=== PATIENT | female | born 2000 | race Caucasian/White ===

== ENCOUNTER 2021-04-30 20:58 | Emergency (ER) | payer OTHER, SELFPAY ==
--- NOTE | ~2021-04-30 | XR_ITS ---
EXAMINATION: XR elbow LT min 3V DATE: 04/30/2021 21:59 INDICATION: Elbow pain TECHNIQUE: Anteroposterior, two oblique and lateral views of the left elbow were obtained. COMPARISON: None. FINDINGS: Alignment is normal. No fracture or joint effusion. Joint spaces are normal. Soft tissues are unremarkable. IMPRESSION: 1. No acute osseous abnormality. Reviewed, dictated and finalized at location A. [employer]
--- NOTE | ~2021-04-30 | XR_ITS ---
EXAMINATION: XR shoulder LT min 2V INDICATION: Left shoulder pain TECHNIQUE: Four views of the left shoulder are submitted. COMPARISON: None FINDINGS: Normal alignment. No fracture. Glenohumeral and acromioclavicular joint spaces are normal. Soft tissues are unremarkable. IMPRESSION: 1. No acute osseous abnormality. Reviewed, dictated and finalized at location A. [employer]
--- NOTE | ~2021-04-30 | XR_ITS ---
EXAMINATION:XR_CERV2-3V_CR DATE: 04/30/2021 21:59 INDICATION: Neck pain TECHNIQUE: AP, lateral, lateral swimmers and odontoid views of the cervical spine are provided. COMPARISON: None FINDINGS: Alignment is normal. The odontoid is intact. No fracture is identified. Vertebral body heig hts and disk spaces are normal. Prevertebral soft tissues are normal. IMPRESSION: 1. No acute osseous abnormality. Reviewed, dictated and finalized at location A. [employer]
[2021-04-30 21:02] VITALS: BP 132/66; PULSE 77; RESP 16; TEMP 36.3; O2SAT 100
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
[2021-05-01 00:09] VITALS: PULSE 72; RESP 16; O2SAT 94
== END 2021-05-01 00:10 | disposition home or self-care (01) ==
PROVIDERS: Emergency Provider Emergency Medicine; PCP Family Medicine
DX: S46.912A Strain of unspecified muscle, fascia and tendon at shoulder and upper arm level, left arm, initial encounter (principal); S16.1XXA Strain of muscle, fascia and tendon at neck level, initial encounter; V43.52XA Car driver injured in collision with other type car in traffic accident, initial encounter
CPT/HCPCS: 72040; 73030; 73080; 99284

== ENCOUNTER 2021-11-08 17:41 | Emergency (ER) | payer SELFPAY ==
[2021-11-08 17:51] VITALS: BP 122/64; PULSE 67; RESP 20; TEMP 36.3; O2SAT 100
--- NOTE | 2021-11-08 18:14 | ED.FEMALEGU ---
HPI - Female Genitourinary General Chief complaint: Upper Respiratory Infection Stated complaint: Yeast Infection Time Seen by Provider: 11/08/21 18:15 Source: patient and RN notes reviewed Mode of arrival: ambulatory Limitations: no limitations History of Present Illness HPI Narrative: 20-year-old female presents to the [facility] with complaints of vaginal discharge, concern for burning and itching. Has a concern for an STD. Denies chances of . Patient denies abdominal pain, fevers. Related Data Allergies Allergy/AdvReac Type Severity Reaction Status Date / Time No Known Allergies Allergy Unverified 03/25/12 11:08 Review of Systems Review of Systems: All systems reviewed & are unremarkable except as noted in HPI and below Constitutional: Constitutional: Reports no additional constitutional complaints, Denies chills and Denies fever(s) Eyes: Eyes: Reports no additional eye complaints ENT: Reports system reviewed and no additional complaints, except as documented Cardiovascular: Cardiovascular: Reports no additional cardiovascular complaints Respiratory: Respiratory: Reports no additional respiratory complaints Gastrointestinal: Gastrointestinal: Reports no additional gastrointestinal complaints Genitourinary: Genitourinary: Reports as per HPI and Reports vaginal discharge Musculoskeletal: Musculoskeletal: Reports no additional musculoskeletal complaints Integumentary/Breasts: Skin/Breast: Reports system reviewed and no additional complaints, except as docu Neurologic: Reports system reviewed and no additional complaints, except as documented Psychiatric: Psychiatric: Reports no additional psychiatric complaints Allergic/Immunologic: Allergic/Immunologic: Reports no additional allergic/immunologic complaints PMFSH Past Medical History Medical History (Updated 11/08/21 @ 20:07 by Sarah Khan APRN) No significant medical problems Surgical History Surgical History (Updated 11/08/21 @ 20:07 by Sarah Khan APRN) No pertinent past surgical history Social History Social History (Updated 11/08/21 @ 20:08 by Sarah Khan APRN) Gender identity (if verbalized by the patient): Female Comments At the time of my signature, I reviewed and agree with the nursing past medical, surgical, social, and family history. There is no relevant family history pertinent to the patient complaint. Exam Const: General: healthy appearing, no acute distress and alert Nutritional Appearance: well nourished Orientation/consciousness: patient oriented x3 Limitations: no limitations HENMT: Head: normal to inspection Ears: external ears normal General nose exam: Normal external nose present Eyes: General: appearance normal, both eyes and all related structures Pupils: Equal, round and reactive pupils present Neck: Neck: normal visual inspection, no lymphadenopathy and no meningeal signs Chest: Chest palpation & inspection: normal inspection of the chest Resp: Effort & Inspection: normal respiratory effort and no use of accessory muscles Auscultation: clear to auscultation bilaterally, no crackles, no rales, no rhonchi and no wheezes Cardio: Rate: regular rate Rhythm: regular rhythm GI: GI Palp: Yes Soft to palpation and No Tenderness to palpation present (GI) : External Female Exam: normal external appearance Speculum Exam - Vagina: abnormal vaginal discharge (Patient is on menses) white Speculum Exam - Cervix: normal appearance of the cervix and Cervical os closed Other: Chaperoned by [address] WAY Back/Spine/Pelvis: Cervical Spine: normal cervical lordosis Thoracic/Lumbar Spine: thoracic and lumbar spine normal to inspection Skin: General skin exam: normal color Rashes: no rashes Wounds: no wounds Neuro: General: patient oriented x3, moves all extremities, no meningeal signs and no focal motor deficits Cranial nerves: Yes Equal, round and reactive pupils present Speech: normal speech Ga
== END 2021-11-08 18:49 | disposition home or self-care (01) ==
PROVIDERS: Emergency Provider Nurse Practitioner; PCP Family Medicine
DX: N76.0 Acute vaginitis (principal)
CPT/HCPCS: 81003; 81025; 87070; 87077; 87491; 87591; 87661; 99214; G0463

== ENCOUNTER 2023-07-04 16:18 | Emergency (ER) | payer SELFPAY ==
[2023-07-04 16:25] VITALS: BP 130/76; PULSE 71; RESP 18; TEMP 36.3; O2SAT 100
--- NOTE | 2023-07-04 20:24 | PC.NURSE ---
no answer at triage
--- NOTE | 2023-07-04 20:27 | PC.NURSE ---
no answer at triage
== END 2023-07-04 20:56 | disposition left against medical advice (07) ==
PROVIDERS: PCP Family Medicine
DX: R10.9 Unspecified abdominal pain (principal)
CPT/HCPCS: 99199

== ENCOUNTER 2023-07-21 16:25 | Emergency (ER) | payer SELFPAY ==
[2023-07-21 16:45] VITALS: BP 116/53; PULSE 85; RESP 18; O2SAT 100
--- NOTE | 2023-07-21 17:00 | ED.GENADULT ---
HPI - General Adult General Chief complaint: Urogenital-Female Stated complaint: urinary issue Source: patient, RN notes reviewed and old records reviewed Mode of arrival: ambulatory Limitations: no limitations History of Present Illness HPI narrative: 22-year-old female presents to [facility] with complaints of burning with urination, urgency, frequency, and lower abdominal pain. Patient states he did a telehealth visit and was prescribed a medication to treat bacterial vaginosis the patient states did not help. Patient states does have a new partner and would like STD testing. Patient denies vaginal discharge, vaginal irritation, vaginal pain, vaginal lesions. Related Data Allergies Allergy/AdvReac Type Severity Reaction Status Date / Time No Known Allergies Allergy Verified 07/21/23 16:26 Review of Systems Constitutional: Constitutional: Reports no additional constitutional complaints, Denies body ache(s), Denies chills, Denies fatigue, Denies fever(s) and Denies headache(s) Eyes: Eyes: Reports no additional eye complaints and Denies blurry vision ENT: Reports system reviewed and no additional complaints, except as documented, Denies vertigo, Denies dizziness, Denies ear discharge, Denies otalgia, Denies facial pain, Denies headache(s), Denies nasal congestion, Denies nasal discharge, Denies sinus pain, Denies sinus pressure and Denies sore throat Cardiovascular: Cardiovascular: Reports no additional cardiovascular complaints, Denies chest pain, Denies chest pain at rest, Denies rapid heart rate and Denies dyspnea Respiratory: Respiratory: Reports no additional respiratory complaints, Denies chest congestion, Denies cough, Denies pain on inspiration, Denies pain with cough and Denies dyspnea Gastrointestinal: Gastrointestinal: Reports abdominal pain, Denies diarrhea, Denies nausea and Denies vomiting Genitourinary: Genitourinary: Reports nocturia, Reports dysuria and Reports urinary urgency Integumentary/Breasts: Skin/Breast: Denies rash Neurologic: Reports system reviewed and no additional complaints, except as documented, Denies vertigo, Denies dizziness and Denies headache(s) Endocrine: Endocrine: Denies fatigue PMFSH Past Medical History Medical History No significant medical problems Surgical History Surgical History No pertinent past surgical history Social History Social History Gender identity (if verbalized by the patient): Female Comments At the time of my signature, I reviewed and agree with the nursing past medical, surgical, social, and family history. There is no relevant family history pertinent to the patient complaint. Exam Const: General: cooperative, healthy appearing, no acute distress and well nourished Nutritional Appearance: well nourished Orientation/consciousness: patient oriented x3 Limitations: no limitations HENMT: Head: normal to inspection and normocephalic Ears: external ears normal and mastoids normal Face/Nose/Sinus: normal facial exam Face and sinus: normal facial exam Mouth: Yes Normal oral and palatal mucosa present, Yes oropharynx normal and Yes moist mucous membranes Eyes: General: appearance normal, both eyes and all related structures Sclera: sclerae normal Pupils: Equal, round and reactive pupils present Resp: Effort & Inspection: normal respiratory effort, able to speak in complete sentences, no audible wheezes, no cough, no respiratory distress and no retractions GI: GI Palp: No abdominal tenderness, Yes Soft to palpation, No Firmness to palpation present (GI), No Tenderness to palpation present (GI), No Guarding due to palpation present (GI) and No Rigid due to palpation : General: Yes bladder normal to inspection, Yes bladder normal to palpation and Yes no CVA tenderness Skin: General sk
[2023-07-21 19:21] LABS: Trichomonas Vag PCR NOT DETECTED (NOT DETECTE)
[2023-07-21 19:47] LABS: Chlamydia trachomatis DETECTED (NOT DETECTE); Neisseria gonorrhoeae PCR NOT DETECTED (NOT DETECTE)
== END 2023-07-21 17:11 | disposition home or self-care (01) ==
PROVIDERS: Emergency Provider Registered Nurse; PCP Family Medicine
DX: N30.00 Acute cystitis without hematuria (principal); A74.9 Chlamydial infection, unspecified
CPT/HCPCS: 81003; 87086; 87491; 87591; 87661; 99213; G0463

== ENCOUNTER 2024-03-12 15:12 | Emergency (ER) | payer SELFPAY ==
--- NOTE | ~2024-03-12 | US_ITS ---
EXAMINATION: US OB <=14 wk fetus w TV DATE: 03/12/2024 18:44 INDICATION: Pelvic pain. Positive test. TECHNIQUE: Real-time pelvic ultrasound utilizing both a transvaginal and transabdominal probe was pe rformed. The interpreting radiologist was not present for the study. COMPARISON: None. FINDINGS: The uterus measures 7.9 x 4.2 x 5.8 cm. There is an intrauterine gestational sac. A yolk sac and fet al pole are identified. The mean sac diameter measures 15 mm correlates with an estimated gestational age of 6 weeks and 2 days. The crown rump length measures 1-2 mm which is below the lower range for assessment for gestational age and 2 small visualized heart motion. The right ovary measures 2.7 x 1.7 x 1.8 cm. The left ovary measures 2.0 x 1.5 x 1.5 cm. Vascular konstantin w is identified in both ovaries on color Doppler. There is a minimal amount of free fluid in the pelv is. IMPRESSION: 1. Intrauterine gestational sac with single yolk sac and one-2 mm pole which is too small to ge stational age assessment for to assess for heart motion. 2. Gestational age by ultrasound based upon a 15 mm mean sac diameter of 6 weeks 2 day(s) +/- 4 day( s) with ultrasound estimated date of delivery (DALIA) of 10/24/2024. Could consider short interval follow -up ultrasound as clinically indicated to confirm viability and for more accurate assessment fo r estimated gestational age. Reviewed, dictated and finalized at location A. IMPRESSION: 1. Intrauterine gestational sac with single yolk sac and one-2 mm pole wh ich is too small to gestational age assessment for to assess for heart mo tion. 2. Gestational age by ultrasound based upon a 15 mm mean sac diameter of 6 wee ks 2 day(s) +/- 4 day(s) with ultrasound estimated date of delivery (DALIA) of 10/24/2024. Could consider short interval follow-up ultrasound as clinically indica esa to confirm viability and for more accurate assessment for estimated g estational age.
[2024-03-12 15:13] VITALS: BP 134/67; PULSE 67; RESP 18; TEMP 36.5; O2SAT 100
[2024-03-12 16:33] VITALS: BP 111/64; PULSE 78; RESP 15; TEMP 36.8; O2SAT 99
--- NOTE | 2024-03-12 16:52 | ED.ABDPAIN ---
HPI - Abdominal Pain General Chief Complaint: Abdominal Pain Stated Complaint: 5 weeks abd pain Time Seen by Provider: 03/12/24 16:28 Source: patient Mode of arrival: ambulatory Limitations: no limitations History of Present Illness HPI narrative: This is a 23-year-old , about 5 weeks by LMP. Presents to the emergency department for lower abdominal pain. Dull/ achy in nature. Ongoing over the last week. She has not seen her OB or had an ultrasound yet this . She has also had some nausea and vomiting. Denies dysuria, hematuria, or vaginal bleeding. Related Data Allergies Allergy/AdvReac Type Severity Reaction Status Date / Time No Known Allergies Allergy Verified 07/21/23 16:26 Review of Systems Review of Systems: CONSTITUTIONAL: Denies fever GASTROINTESTINAL: Reports abdominal pain, nausea, vomiting GENITOURINARY: Denies dysuria or hematuria. All systems reviewed & are unremarkable except as noted in HPI and below PMFSH Past Medical History Medical History No significant medical problems Surgical History Surgical History No pertinent past surgical history Social History Social History (Updated 03/12/24 @ 16:58 by Gaby Metzger PA-C) Substance use: never Gender identity (if verbalized by the patient): Female Exam Narrative: GENERAL: Well-appearing, well-nourished, and in no acute distress. HEAD: Normocephalic, atraumatic. EYES: EOMI. CHEST: Clear to auscultation. No respiratory distress. No wheezes rales or rhonchi HEART: Regular rate and rhythm. No murmur heard. Normal peripheral pulses. ABDOMEN: Soft, nontender, nondistended, normal active bowel sounds. EXTREMITIES: Normal range of motion. No edema. SKIN: Warm, dry, no rash. NEURO: No focal deficits. Alert and oriented x3. PSYCH: Normal mood and affect Course Course Emergency Course: Patient updated on her workup and agrees with plan of care Vital Signs Vital signs: Vital Signs Temperature 97.7 F 03/12/24 15:13 Pulse Rate 67 03/12/24 15:13 Respiratory Rate 18 03/12/24 15:13 Blood Pressure 134/67 03/12/24 15:13 Pulse Oximetry 100 03/12/24 15:13 Oxygen Delivery Room Air 03/12/24 15:13 Temperature 98.1 F 03/12/24 18:23 Pulse Rate 70 03/12/24 18:23 Respiratory Rate 14 03/12/24 18:23 Blood Pressure 118/70 03/12/24 18:23 Pulse Oximetry 98 03/12/24 18:23 Oxygen Delivery Room Air 03/12/24 16:33 MDM - Abdominal Pain MDM Narrative Medical decision making narrative: Patient presents to the emergency department for lower abdominal pain. Ongoing over the last week. Reports currently being . Her OB will be [facility] [place]. she is afebrile and nontoxic appearing. Her vitals are stable. Abdomen is soft. Cbc without leukocytosis. Metabolic panel and lipase without concerning findings. Urine without evidence of infection. Beta-hCG 21, 274. ultrasound shows a gestational sac and yolk sac with a 2 mm pole, unable to visualize cardiac motion. Gestational age by ultrasound 6 weeks and 2 days. Patient was updated on her workup. Is to have close follow-up with her OB. She was given warnings to return to the ER Differential Diagnosis Differential diagnosis: Likely constipation and other (UTI, implantation pain) Lab Data Attestation: I reviewed the patient's lab results. 03/12/24 16:48 03/12/24 16:48 Labs: Lab Results 03/12/24 03/12/24 Range/Units 16:48 16:52 WBC 8.8 (4.5-10.0) K/mm3 RBC 4.65 (4.2-5.4) M/mm3 Hgb 13.7 (12.0-15.0) g/dL Hct 40.5 (37.0-47.0) % MCV 87.1 (80-100) fl MCH 29.5 (26-34) pg MCHC 33.8 (32-36) g/dl RDW 12.0 (11.5-14.5) % Plt Count 306 (150-375) k/mm3 MPV 9.9 (7.4-10.4) fl Immature Gran % (Auto) 0.2 (0-0.5) % Neut % (Auto) 65.
[2024-03-12 16:53] LABS: BEDSIDEPREGUCG Positive (Negative)
[2024-03-12 17:00] LABS: Basophils Percent Auto 0.3 % (0.2-1.2); Eosinophils Absolute Auto 0.2 K/mm3 (0-0.3); Eosinophils Percent Auto 2.4 % (0-4.4); Hematocrit 40.5 % (37.0-47.0); Hemoglobin 13.7 g/dL (12.0-15.0); Immature Granulocyte Absolute 0.02 K/mm3 (0.00-0.031); Immature Granulocyte Percent A 0.2 % (0-0.5); Lymphocytes Absolute Auto 2.28 K/mm3 (0.9-3.2); Lymphocytes Percent Auto 25.9 % (18.3-44.2); Mean Corpuscular HGB Conc 33.8 g/dl (32-36); Mean Corpuscular Hemoglobin 29.5 pg (26-34); Mean Corpuscular Volume 87.1 fl (80-100); Mean Platelet Volume 9.9 fl (7.4-10.4); Monocytes Absolute Auto 0.5 K/mm3 (0.1-0.6); Monocytes Percent Auto 5.5 % (2.6-8.5); Neutrophils Absolute Auto 5.8 K/mm3 (1.3-6.7); Neutrophils Percent Auto 65.7 % (45.5-73.1); Platelet Count Result 306 k/mm3 (150-375); Red Blood Count 4.65 M/mm3 (4.2-5.4); White Blood Count 8.8 K/mm3 (4.5-10.0)
[2024-03-12 17:16] LABS: Add Urine Microscopic? YES; Appearance Urine Clear (Clear); Bacteria Urine None Seen /hpf; Bilirubin Urine Negative (Negative); Blood Urine Negative (Negative); Color Urine Yellow (Yellow); Glucose Urine UA Negative (Negative); Ketones Urine Negative (Negative); Leukocyte Esterase Ur Trace LEU/UL (Negative); Nitrate Urine Negative (Negative); Non Pathogenic Casts 0-2; Protein Urine Negative (Negative); RBC Urine 0-2 /hpf (0-2); Specific Grav Ur 1.011 (1.001-1.035); Squamous Epithelial Cell Urine None Seen /hpf (Few); Urobilinogen Urine 0.2 mg/dL (<2.0); WBC Urine 0-5 /hpf (0-3)
[2024-03-12] MEDS: SODIUM CHLORIDE 0.9% IV 1,000 ML 999 ML IV CONT (17:18)
[2024-03-12] MEDS: ONDANSETRON INJ 4 MG/2 ML VIAL IV PUSH (17:18)
[2024-03-12] MEDS: ACETAMINOPHEN 500 MG TABLET 1000 MG PO (17:19)
[2024-03-12 17:29] LABS: Alanine Aminotransferase 14 U/L (6-35); Albumin Level 4.8 g/dL (3.5-5.1); Alkaline Phosphatase 55 U/L (38-126); Anion Gap 10 mmol/L (4-12); Aspartate Amino Transferase 20 U/L (14-36); Bilirubin,Total 0.2 mg/dL (0.2-1.3); Blood Urea Nitrogen 9 mg/dL (7-17); Calcium 9.5 mg/dL (8.4-10.2); Carbon Dioxide 25 mmol/L (22-30); Chloride 100 mmol/L (98-107); Estimated CRCL calculation 117 ml/min; Estimated Glomerular Filt Rate > 60; Glucose 85 mg/dL (65-110); Lipase 104 U/L (23-300); Potassium 3.7 mmol/L (3.4-5.0); Sodium 135 mmol/L (137-145)
[2024-03-12 18:23] VITALS: BP 118/70; PULSE 70; RESP 14; TEMP 36.7; O2SAT 98
[2024-03-12 19:08] VITALS: BP 120/74; PULSE 68; RESP 14; TEMP 36.9; O2SAT 99
== END 2024-03-12 19:13 | disposition home or self-care (01) ==
PROVIDERS: Emergency Provider Physician Assistant
DX: O26.891 Other specified pregnancy related conditions, first trimester (principal); R10.30 Lower abdominal pain, unspecified; Z3A.01 Less than 8 weeks gestation of pregnancy
CPT/HCPCS: 36415; 76801; 76817; 80053; 81001; 81025; 83690; 84702; 85025; 96361; 96374; 99284; A9270; J2405; J7030

== ENCOUNTER 2024-05-06 17:29 | Emergency (ER) | payer SELFPAY ==
--- NOTE | ~2024-05-06 | XR_ITS ---
EXAMINATION: XR chest 1V DATE: 05/06/2024 20:04 INDICATION: Pneumonia. TECHNIQUE: A single frontal view of the chest was obtained. COMPARISON: None. FINDINGS: There is no pneumonia, pleural effusion, or pneumothorax. The heart size is normal. IMPRESSION: 1. No acute cardiopulmonary disease. Reviewed, dictated and finalized at location A. [employer]
[2024-05-06 17:51] VITALS: BP 121/61; PULSE 79; RESP 18; TEMP 36.5; O2SAT 99
[2024-05-06 20:51] LABS: Strep Group A RT-PCR NOT DETECTED (Negative)
[2024-05-06 21:03] LABS: Influenza A QL RT-PCR Negative (Negative); Influenza B QL RT-PCR Negative (Negative); RSV RNA, RT-PCR Negative (Negative); SARS-CoV-2 RNA PCR Negative (Negative)
--- NOTE | 2024-05-06 21:35 | ED.GENADULT ---
HPI - General Adult General Chief complaint: Upper Respiratory Infection Stated complaint: URI concerned for pneumonia, 13w preg Time Seen by Provider: 05/06/24 19:40 History of Present Illness HPI narrative: This is a at 13 weeks gestation presenting with cough x3 weeks. Patient has been having flu-like symptoms on and off for the last couple weeks. She finally came to ED because she was concerned she was not getting better. Symptoms include cough congestion and intermittent headaches. She has not had any fevers, chest pain difficulty breathing abdominal pain nausea vomiting diarrhea. No dog boarder complaints. Patient has had an abdominal ultrasound with her OBGYN. Related Data Allergies Allergy/AdvReac Type Severity Reaction Status Date / Time No Known Allergies Allergy Verified 05/06/24 17:32 [facility] Past Medical History Medical History No significant medical problems Surgical History Surgical History No pertinent past surgical history Social History Social History (Updated 03/12/24 @ 16:58 by Gaby Metzger PA-C) Substance use: never Gender identity (if verbalized by the patient): Female Exam Narrative: APPEARANCE: No apparent distress. Head: atraumatic. Normal TMs, mild erythema posterior oropharynx EYES: EOMI, NOSE: Atraumatic NECK: Trachea midline RESPIRATORY: No increased rate of breathing clear to auscultation CARDIOVASCULAR: RRR, ABDOMINAL: Non-distended soft nontender MUSCULOSKELETAl: No obvious deformities NEURO: Alert. Moving 4/4 extremities SKIN:: Warm, dry. Normal color PSYCHIATRIC: Normal affect Course Vital Signs Vital signs: Vital Signs Temperature 97.7 F 05/06/24 17:51 Pulse Rate 79 05/06/24 17:51 Respiratory Rate 18 05/06/24 17:51 Blood Pressure 121/61 05/06/24 17:51 Pulse Oximetry 99 05/06/24 17:51 Temperature 97.9 F 05/06/24 22:19 Pulse Rate 76 05/06/24 22:19 Respiratory Rate 15 05/06/24 22:19 Blood Pressure 132/68 05/06/24 22:19 Pulse Oximetry 98 05/06/24 22:19 Medical Decision Making MDM Narrative Medical decision making narrative: -Course: 23-year-old female presenting with 3 weeks of intermittent cough. Viral swabs were negative. Strep was negative. X-ray without evidence of pneumonia. vital signs are stable and she is very well-appearing on exam. She has no OBGYN complaints like abdominal pain vaginal bleeding/discharge. She will be treated with course of azithromycin to see if that improves her symptoms. Patient given follow-up with her OBGYN -DDX includes but is not limited to: Viral syndrome, atypical pneumonia, mycoplasma -Co-morbidities complicating care: -Shared decision making / Disposition: discharge -RX azithromycin Vital Signs Vital Signs: Vital Signs Temperature 97.7 F 05/06/24 17:51 Pulse Rate 79 05/06/24 17:51 Respiratory Rate 18 05/06/24 17:51 Blood Pressure 121/61 05/06/24 17:51 Pulse Oximetry 99 05/06/24 17:51 Temperature 97.9 F 05/06/24 22:19 Pulse Rate 76 05/06/24 22:19 Respiratory Rate 15 05/06/24 22:19 Blood Pressure 132/68 05/06/24 22:19 Pulse Oximetry 98 05/06/24 22:19 Lab Data Labs: Lab Results 05/06/24 Range/Units 19:43 Influenza A (RT-PCR) Negative (Negative) Influenza B (RT-PCR) Negative (Negative) RSV (RT-PCR) Negative (Negative) SARS-CoV-2 RNA (RT-PCR) Negative (Negative) Group A Strep (PCR) Not detected (Negative) Discharge Plan Discharge Clinical Impression: Upper respiratory infection Patient Disposition: Home, Self-Care Condition: Stable Instructions: Antibiotic Form, Acute Bronchitis (ED) Additional Instructions: please take the azithromycin as directed. Please follow-up with your OBGYN or pcp for further management. If you feel that your condition is getting worse, develop chest pain shortness of breath would like re-evaluation please return to the ED at any time. Patient Language: Ivorian Prescriptions: New azithromycin 250 mg tablet See Rx Instructions .ROUTE .COMPLEX Qty: 6 0RF Rx Instructions: For 250 mg dose pack: take 500 mg today (day 1), then 250 mg for 4 days (days 2-5) No Action nitrofurantoin monohyd/m-cryst [Macrobid] 100 mg capsule 100 mg PO Q12H 5 Days Qty: 10 0RF Rx Instructions: must administer with a meal/food doxycycline hyclate 100 mg tablet 100 mg PO BID 7 Days Qty: 14 0RF Follow-up/Referrals: UNKNOWN,DOCTOR [Primary Care Provider] -
[2024-05-06 22:19] VITALS: BP 132/68; PULSE 76; RESP 15; TEMP 36.6; O2SAT 98
== END 2024-05-06 22:40 | disposition home or self-care (01) ==
PROVIDERS: Emergency Provider Emergency Medicine
DX: J06.9 Acute upper respiratory infection, unspecified (principal); O99.511 Diseases of the respiratory system complicating pregnancy, first trimester; Z20.822 Contact with and (suspected) exposure to COVID-19; Z3A.13 13 weeks gestation of pregnancy
CPT/HCPCS: 71045; 87637; 87651; 99283

== ENCOUNTER 2024-07-30 15:14 | Emergency (ER) | payer OTHER, SELFPAY ==
[2024-07-30 15:21] VITALS: BP 130/83; PULSE 98; RESP 16; TEMP 36.6; O2SAT 100
[2024-07-30] MEDS: SODIUM CHLORIDE 0.9% IV 1,000 ML 999 ML IV CONT (15:58)
[2024-07-30] MEDS: ONDANSETRON INJ 4 MG/2 ML VIAL IV PUSH (15:58)
[2024-07-30 16:09] LABS: Basophils Percent Auto 0.3 % (0.2-1.2); Eosinophils Absolute Auto 0.2 K/mm3 (0-0.3); Eosinophils Percent Auto 2.2 % (0-4.4); Hematocrit 37.5 % (37.0-47.0); Hemoglobin 12.2 g/dL (12.0-15.0); Immature Granulocyte Absolute 0.05 K/mm3 (0.00-0.031); Immature Granulocyte Percent A 0.7 % (0-0.5); Lymphocytes Absolute Auto 0.83 K/mm3 (0.9-3.2); Lymphocytes Percent Auto 12.2 % (18.3-44.2); Mean Corpuscular HGB Conc 32.5 g/dl (32-36); Mean Corpuscular Hemoglobin 28.7 pg (26-34); Mean Corpuscular Volume 88.2 fl (80-100); Mean Platelet Volume 10.2 fl (7.4-10.4); Monocytes Absolute Auto 0.5 K/mm3 (0.1-0.6); Monocytes Percent Auto 7.8 % (2.6-8.5); Neutrophils Absolute Auto 5.2 K/mm3 (1.3-6.7); Neutrophils Percent Auto 76.8 % (45.5-73.1); Platelet Count Result 188 k/mm3 (150-375); Red Blood Count 4.25 M/mm3 (4.2-5.4); Red Cell Distribution Width 12.8 % (11.5-14.5); White Blood Count 6.8 K/mm3 (4.5-10.0)
[2024-07-30 16:17] LABS: Add Urine Microscopic? YES; Appearance Urine Clear (Clear); Bacteria Urine None Seen /hpf; Bilirubin Urine Negative (Negative); Blood Urine Negative (Negative); Color Urine Yellow (Yellow); Glucose Urine UA Negative (Negative); Ketones Urine Trace mg/dL (Negative); Leukocyte Esterase Ur Negative LEU/UL (Negative); Nitrate Urine Negative (Negative); Non Pathogenic Casts 0-2; Protein Urine Trace mg/dL (Negative); RBC Urine 0-2 /hpf (0-2); Specific Grav Ur 1.024 (1.001-1.035); Squamous Epithelial Cell Urine Occasional /hpf (Few); WBC Urine 0-5 /hpf (0-3); pH Urine 5.5 (5.0-9.0)
[2024-07-30 16:22] LABS: Alanine Aminotransferase 61 U/L (6-35); Albumin Level 3.9 g/dL (3.5-5.1); Alkaline Phosphatase 90 U/L (38-126); Anion Gap 10 mmol/L (4-12); Aspartate Amino Transferase 40 U/L (14-36); Bilirubin,Total 0.4 mg/dL (0.2-1.3); Blood Urea Nitrogen 7 mg/dL (7-17); Carbon Dioxide 24 mmol/L (22-30); Chloride 102 mmol/L (98-107); Estimated CRCL calculation 145 ml/min; Estimated Glomerular Filt Rate > 60; Glucose 91 mg/dL (65-110); Lipase 50 U/L (23-300); Potassium 3.8 mmol/L (3.4-5.0); Sodium 136 mmol/L (137-145)
[2024-07-30 16:47] LABS: Influenza A QL RT-PCR Positive (Negative); Influenza B QL RT-PCR Negative (Negative); RSV RNA, RT-PCR Negative (Negative); SARS-CoV-2 RNA PCR Negative (Negative)
--- NOTE | 2024-07-30 17:02 | ED_ITS ---
HPI - General Adult General Chief complaint: Nausea/Vomiting/Diarrhea Stated complaint: N/V Time Seen by Provider: 07/30/24 15:28 History of Present Illness HPI narrative: This is a 23-year-old female at 25 weeks gestation presenting for flu-like symptoms for 5 days. She has had cough and congestion, nausea vomiting and diarrhea. Fevers for the 1st several days although those have now resolved. No chest pain or difficulty breathing. No abdominal pain urinary symptoms vaginal discharge or bleeding. She says her condition has been improving steadily. Related Data Allergies Allergy/AdvReac Type Severity Reaction Status Date / Time No Known Allergies Allergy Verified 07/30/24 15:16 [facility] Past Medical History Medical History No significant medical problems Surgical History Surgical History No pertinent past surgical history Social History Social History (Updated 03/12/24 @ 16:58 by Gaby Metzger PA-C) Substance use: never Gender identity (if verbalized by the patient): Female Exam 2 Narrative: APPEARANCE: No apparent distress. Head: atraumatic. EYES: EOMI, NOSE: Atraumatic NECK: Trachea midline RESPIRATORY: No increased rate of breathing CTAB CARDIOVASCULAR: RRR, no peripheral edema ABDOMINAL: Non-distended soft nontender no guarding rebound MUSCULOSKELETAl: No obvious deformities NEURO: Alert. Moving 4/4 extremities SKIN:: Warm, dry. Normal color PSYCHIATRIC: Normal affect Course Vital Signs Vital signs: Vital Signs Temperature 97.9 F 07/30/24 15:21 Pulse Rate 98 07/30/24 15:21 Respiratory Rate 16 07/30/24 15:21 Blood Pressure 130/83 07/30/24 15:21 Pulse Oximetry 100 07/30/24 15:21 Oxygen Delivery Room Air 07/30/24 15:21 Temperature 97.9 F 07/30/24 15:21 Pulse Rate 98 07/30/24 15:21 Respiratory Rate 16 07/30/24 15:21 Blood Pressure 130/83 07/30/24 15:21 Pulse Oximetry 100 07/30/24 15:21 Oxygen Delivery Room Air 07/30/24 15:21 Medical Decision Making [facility] Narrative Medical decision making narrative: -Course: 23-year-old female presenting with flu-like symptoms. Given fluid resuscitation and Zofran. Patient states she is feeling better. Her viral swabs are positive for flu. She has had 5 days of symptoms and is improving. No role for Tamiflu at this time. Patient will be discharged with primary care follow-up and return precautions. No OBGYN complaints. -DDX includes but is not limited to: Viral syndrome/COVID/flu/gastroenteritis Vital Signs Vital Signs: Vital Signs Temperature 97.9 F 07/30/24 15:21 Pulse Rate 98 07/30/24 15:21 Respiratory Rate 16 07/30/24 15:21 Blood Pressure 130/83 07/30/24 15:21 Pulse Oximetry 100 07/30/24 15:21 Oxygen Delivery Room Air 07/30/24 15:21 Temperature 97.9 F 07/30/24 15:21 Pulse Rate 98 07/30/24 15:21 Respiratory Rate 16 07/30/24 15:21 Blood Pressure 130/83 07/30/24 15:21 Pulse Oximetry 100 07/30/24 15:21 Oxygen Delivery Room Air 07/30/24 15:21 Lab Data 07/30/24 15:50 07/30/24 15:50 Labs: Lab Results 07/30/24 07/30/24 Range/Units 15:50 15:57 WBC 6.8 (4.5-10.0) K/mm3 RBC 4.25 (4.2-5.4) M/mm3 Hgb 12.2 (12.0-15.0) g/dL Hct 37.5 (37.0-47.0) % MCV 88.2 (80-100) fl MCH 28.7 (26-34) pg MCHC 32.5 (32-36) g/dl RDW 12.8 (11.5-14.5) % Plt Count 188 (150-375) k/mm3 MPV 10.2 (7.4-10.4) fl Immature Gran % (Auto) 0.7 H (0-0.5) % Neut % (Auto) 76.8 H (45.5-73.1) % Lymph % (Auto) 12.2 L (18.3-44.2) % [place] % (Auto) 7.8 (2.6-8.5) % Eos % (Auto) 2.2 (0-4.4) % Baso % (Auto) 0.3 (0.2-1.2) % Lymph # (Auto) 0.83 L (0.9-3.2) K/mm3 [place] # (Auto) 0.5 (0.1-0.6) K/mm3 Eos # (Auto) 0.2 (0-0.3) K/mm3 Baso # (Auto) 0.0 (0.0-0.1) K/mm3 Abs Immat Gran (auto) 0.05 H (0.00-0.031) K/mm3 Absolute Neuts (auto) 5.2 (1.3-6.7) K/mm3 Absolute Nucleated RBC 0.000 (0.0-0.012) K/mm3 Nucleated RBC % 0.0 (0.0-0.2) % Sodium 136 L (137-145) mmol/L Potassium 3.8 (3.4-5.0) mmol/L Chloride 102 (98-107) mmol/L Carbon Dioxide 24 (22-30) mmol/L Anion Gap 10 (4-12) mmol/L BUN 7 (7-17) mg/dL Creatinine 0.51 L (0.7-1.0) mg/dL Estim Creat Clear Calc 145 ml/min Estimated GFR > 60 (59 - ) Glucose 91 (65-110) mg/dL Calcium 9.0 (8.4-10.2) mg/dL Total Bilirubin 0.4 (0.2-1.3) mg/dL AST 40 H (14-36) U/L ALT 61 H (6-35) U/L Alkaline Phosphatase 90 (38-126) U/L Total Protein 7.0 (6.3-8.2) g/dL Albumin 3.9 (3.5-5.1) g/dL Lipase 50 (23-300) U/L Urine Color Yellow (Yellow) Urine Appearance Clear (Clear) Urine pH 5.5 (5.0-9.0) Ur Specific [place] 1.024 (1.001-1.035) Urine Protein Trace (Negative) mg/dL Urine Glucose (UA) Negative (Negative) mg/dL Urine Ketones Trace H (Negative) mg/dL Ur Blood (Man) Negative (Negative) Urine Nitrate Negative (Negative) Urine Bilirubin Negative (Negative) Urine Urobilinogen 1.0 (<2.0) mg/dL Leukocyte Esterase Rfl Negative (Negative) UMBERTO/UL Urine RBC 0-2 (0-2) /hpf Urine WBC 0-5 (0-3) /hpf Ur Squamous Epith Cells Occasional (Few) /hpf Urine Bacteria None seen /hpf Urine Casts 0-2 Influenza A (RT-PCR) Positive A (Negative) Influenza B (RT-PCR) Negative (Negative) RSV (RT-PCR) Negative (Negative) SARS-CoV-2 RNA (RT-PCR) Negative (Negative) Discharge Plan Discharge Clinical Impression: Flu Patient Disposition: Home, Self-Care Condition: Stable Instructions: Antibiotic Form, Influenza (DC) Additional Instructions: Please use Tylenol for fevers or body aches. Use Zofran for nausea. Return to the ED if develops chest pain difficulty breathing or feel your condition is getting worse. Patient Language: Greek Prescriptions: New ondansetron 4 mg tablet,disintegrating 4 mg PO Q8H PRN (Reason: nausea and vomiting) Qty: 30 0RF No Action nitrofurantoin monohyd/m-cryst [Macrobid] 100 mg capsule 100 mg PO Q12H 5 Days Qty: 10 0RF Rx Instructions: must administer with a meal/food doxycycline hyclate 100 mg tablet 100 mg PO BID 7 Days Qty: 14 0RF azithromycin 250 mg tablet See Rx Instructions .ROUTE .COMPLEX Qty: 6 0RF Rx Instructions: For 250 mg dose pack: take 500 mg today (day 1), then 250 mg for 4 days (days 2-5) Follow-up/Referrals: UNKNOWN,DOCTOR [Primary Care Provider] -
--- OUTSIDE RECORDS SUMMARY | 2024-07-30 17:15 | XMS_ITS | Referral Summary ---
Author Organization [facility] Address [address] [place] [address] Care Team Providers Care Enrolled Nurse Name Role Phone Arleth Kyle MD Primary Care Provider [phone] Source Comments [facility],non-owned Affiliates and Associated Physician Practices is amultiple site organization consisting of ambulatory clinics and hospital sitesin [place], [place], [place] and [place]. This disclosure is being madepursuant to the Care Everywhere program and may not contain all information available regarding this patient. Last updated 18.[facility] Encounters Date Type Department Care Team Description 07/07/2024 9:39 AM PROCESS CONTROL OPERATOR - 07/07/2024 11:59 PM PROCESS CONTROL OPERATOR Hospital Encounter [facility] [address] [place] [id number] Head, Emily Tellez MD Discharge Disposition: Home or Self Care 06/11/2024 1:46 PM PROCESS CONTROL OPERATOR - 06/11/2024 11:59 PM PROCESS CONTROL OPERATOR Hospital Encounter [facility] [address] [place] [id number] Juan C Lang MD Discharge Disposition: Home or Self Care 06/11/2024 1:39 PM PROCESS CONTROL OPERATOR - 06/11/2024 1:45 PM PROCESS CONTROL OPERATOR Hospital Encounter [facility] [address] [place], [place] [id number] Juan C Lang MD Discharge Disposition: Home or Self Care from Last 3 Months Allergies No known active allergies Medications * Be aware that medications may not be up to date on this document. Alwaysverify current medications with the patient. Medication Sig Dispensed Refills Start Date End Date Status Vit-DSS-Fe Fum-FA ( vitamin with iron) tabletIndications:Pre gnancy Take 1 (one) tablet by mouth once daily Reasons: Active calcium carbonate-vitamin D 600-400 MG-UNIT tablet Take 1 (one) tablet by mouth 1 (one) time Active vitamin A 2400 MCG (8000 UT) capsule Take 1 (one) capsule by mouth once daily Patient takes 2400 mcg of the [place] brand vitamin A. Active Social History Tobacco Use Types Packs/Day Years Used Date Smoking Tobacco: Never Smokeless Tobacco: Never Tobacco Cessation:Counseling Given: Not Answered Alcohol Use Standard Drinks/Week Comments Not Currently 0 (1 standard drink = 0.6 oz pur e alcohol) Estimated Date of Delivery Comme nts Yes 11/09/2024 Based on last me nstrual period of 02/03/2024 Sex and Gender Information Value Date Recorded Sex Assigned at Not on file Gender Identity Not on file Sexual Orientation Not on file Last Filed Vital Signs Vital Sign Reading Time Taken Comments Blood Pressure 117/54 06/11/2024 2:42 PM PROCESS CONTROL OPERATOR Pulse 67 06/11/2024 2:42 PM PROCESS CONTROL OPERATOR Temperature 36.9 C (98.4 F) 08/25/2011 1:21 AM CDT Respiratory Rate 20 08/25/2011 1:21 AM CDT Oxygen Saturation 100% 08/24/2011 11:45 PM CDT Inhaled Oxygen Concentration - - Weight 78 kg (172 lb) 06/11/2024 2:42 PM PROCESS CONTROL OPERATOR Height 160 cm (5' 3 ) 06/11/2024 2:58 PM PROCESS CONTROL OPERATOR Body Mass Index 30.47 06/11/2024 2:42 PM PROCESS CONTROL OPERATOR Plan of Treatment Not on file Procedures Procedure Name Priority Date/Time Associated Diagnosis Comments SONOGRAM - COMPLETE Routine 07/07/2024 9 :34 AM PROCESS CONTROL OPERATOR Hx of bariatric surgery 22 weeks gestation of (HCC) Encounter for follow-up ultrasound of anatomy ([facility]) SONOGRAM - COMPLETE Routine 06/11/2024 1 :49 PM PROCESS CONTROL OPERATOR Encounter for anatomic survey ([facility]) Hx of bariatric surgery 18 weeks gestation of ([facility]) from Last 3 Months Results * SONOGRAM - COMPLETE (07/07/2024 9:34 AM PROCESS CONTROL OPERATOR) Only the most recent of2 resultswithin the time period is included. Linked Results Indication ======== Anatomy Screen, Bariatric Surgery 2021 History ====== OB History 1. Para 0 Lab Tests Test Date Result NIPT Low risk, Male Maternal Assessment Physical Exam Height 160 cm, 5 ft 3 in. Weight 80 kg, 177 lb. Initial weight 68 kg, 150 lb. BMI 31.35 kg/m . Initial BMI 26.57 kg/m . Weight gain 12 kg, 27 lb Method ====== Transabdominal ultrasound. View: Sufficient ========= Franks . Number of fetuses: 1 Dating ====== Date Details Gest. age DALIA LMP 02/03/2024 22 w + 1 d 11/09/2024 Stated DALIA 22 w + 1 d 11/09/2024 U/S 07/07/2024 based upon AC, BPD, Femur, HC 23 w + 1 d 11/02/2024 Assigned dating based on the LMP, selected on 06/11/2024 22 w + 1 d 11/09/2024 General Evaluation Cardiac activity present. FHR 153 bpm. Presentation: breech Placenta: Placental site: anterior Amniotic fluid: Amount of AF: normal. MVP 6.8 cm Biometry BPD 56.9 mm 23w 3d 88% Hadlock HC 205.1 mm 22w 4d 58% Hadlock AC 186.2 mm 23w 3d 81% Hadlock Femur 40.1 mm 23w 0d 67% Hadlock Humerus 39.1 mm 23w 6d 93% Teofilo HC / AC 1.10 Weight Calculation: EFW 568 g 88% Hadlock EFW (lb,oz) 1 lb 4 oz EFW by Hadlock ([id number]) appropriate Growth Overview Exam date GA BPD (mm) HC (mm) AC (mm) FL (mm) HL (mm) EFW (g) 06/11/2024 18w 3d 44.7 89% 163.1 74% 143.1 84% 26.8 34% 27.5 69% 268 77% 07/07/2024 22w 1d 56.9 88% 205.1 58% 186.2 81% 40.1 67% 39.1 93% 568 88% Anatomy The following structures appear normal: Heart / Thorax 4-chamber view. 8-mdstcr-cchthue view. Aortic arch view. Bicaval view. Diaphragm. Abdomen Stomach. Kidneys. Bladder. The following structures were documented previously: Head / Neck Cranium. Lateral ventricles. Choroid plexus. Midline falx. Cavum septi pellucidi. Cerebellum. Cisterna magna. Thalami. Nuchal fold. Face Lips. Profile. Nose. Nasal bone. Orbits. Heart / Thorax RVOT view. LVOT view. 3-vessel view. Situs. Ductal arch view. Great vessels. Right lung. Left lung. Abdomen Cord insertion. Bowel. Genitals. Spine Cervical spine. Thoracic spine. Lumbar spine. Sacral spine. Extremities / Skeleton Arms. Hands. Legs. Feet. sex: male. Impression ========= Single, live, intrauterine at 22w 1d size is appropriate Amniotic fluid volume: normal No major malformations were seen within the limitations of ultrasound Follow-up ======== Follow up ultrasound at 32 weels for growth assessment is recommended Coding ====== Procedures 13017: US Preg Uterus Follow Up [employer] PACS Anatomical Region Laterality Modality Other 07/07/2024 9:34 AM PROCESS CONTROL OPERATOR R Mateusz Jacobson MD [facility] ORDERABLES from Last 3 Months Care Teams Enrolled Nurse Relationship Specialty Start Date End Date Arleth Kyle MD [address] [place] [phone] PCP - General 02/01/11
--- OUTSIDE RECORDS SUMMARY | 2024-07-30 17:15 | XMS_ITS | Patient Health Summary ---
Author Organization [facility] Address [address] [place] [address] Care Team Providers Care Weather Analyst Name Role Phone Arleth Kyle MD Primary Care Provider [phone] Note from [facility],non-owned Affiliates and Associated Physician Practices is amultiple site organization consisting of ambulatory clinics and hospital sitesin [place], [place]. This disclosure is being madepursuant to the Care Everywhere program and may not contain all information available regarding this patient. Last updated 18.[facility] Allergies No known active allergies Medications * Be aware that medications may not be up to date on this document. Alwaysverify current medications with the patient. * Vit-DSS-Fe Fum-FA ( vitamin with iron) tablet Take 1 (one) tablet by mouth once daily Reasons: * calcium carbonate-vitamin D 600-400 MG-UNIT tablet Take 1 (one) tablet by mouth 1 (one) time * vitamin A 2400 MCG (8000 UT) capsule Take 1 (one) capsule by mouth once daily Patient takes 2400 mcg of the [place] brand vitamin A. Social History Tobacco Use Types Packs/Day Years [...] Comments Blood Pressure 117/54 06/11/2024 2:42 PM CAKE INSPECTOR Pulse 67 06/11/2024 2:42 PM CAKE INSPECTOR Temperature 36.9 C (98.4 F) 08/25/2011 1:21 AM CDT Respiratory Rate 20 08/25/2011 1:21 AM CDT Oxygen Saturation 100% 08/24/2011 11:45 PM CDT Inhaled Oxygen Concentration - - Weight 78 kg (172 lb) 06/11/2024 2:42 PM CAKE INSPECTOR Height 160 cm (5' 3 ) 06/11/2024 2:58 PM CAKE INSPECTOR Body Mass Index 30.47 06/11/2024 2:42 PM CAKE INSPECTOR Procedures * SONOGRAM - COMPLETE(Performed 07/07/2024) Performed for Hx of bariatric surgery, 22 weeks gestation of ([facility]), Encounter for follow-up ultrasound of anatomy ([facility]) * SONOGRAM - COMPLETE(Performed 06/11/2024) Performed for Encounter for anatomic survey ([facility]), Hx of bariatric surgery, 18 weeks gestation of ([facility]) * PATHOLOGY/CYTOLOGY REPORT ORDER(Performed 04/07/2011) * XR FOOT LEFT 2VW(Performed 03/31/2011) Performed for Foot and toe(s), superficial foreign body (splinter), without major open wound and without mention of infection * GROSS + MICRO EXAM(Performed 03/31/2011) * MRI LOWER EXT LT WO CONT NON JT(Performed 03/21/2011) Performed for Left foot pain * XR FOOT LEFT 3VW OR MORE(Performed 02/01/2011) Performed for Foreign body Results * SONOGRAM - COMPLETE (07/07/2024 9:34 AM CAKE INSPECTOR) Only the most recent of2 resultswithin the [...] 1 lb 4 oz EFW by Hadlock ([id number]) appropriate Growth Overview Exam date GA BPD (mm) HC (mm) AC (mm) FL (mm) HL (mm) EFW (g) 06/11/2024 18w 3d 44.7 89% 163.1 74% 143.1 84% 26.8 34% 27.5 69% 268 77% 07/07/2024 22w 1d 56.9 88% 205.1 58% 186.2 81% 40.1 67% 39.1 93% 568 88% Anatomy The following structures appear normal: Heart / Thorax 4-chamber view. 5-nshbii-wybhgwb view. Aortic arch view. Bicaval view. Diaphragm. [...] growth assessment is recommended Coding ====== Procedures 26633: US Preg Uterus Follow Up [employer] PACS Anatomical Region Laterality Modality Other 07/07/2024 9:34 AM CAKE INSPECTOR R Mateusz Jacobson MD [facility] ORDERABLES * PATHOLOGY/CYTOLOGY REPORT ORDER (04/07/2011 12:45 PM CAKE INSPECTOR) Narrative 04/07/2011 12:45 PM CAKE INSPECTOR A scan was deleted from the Results section by S Interface [[id number]] on 04/07/2011 at 12:45 PM (File: [id number]) Transcriptions Document, Scanned - 04/07/2011 12:45 PM CST Scanned Document LAB - PATHOLOGY/CYTO LOGY ORDERABLES * XR FOOT 2 VW LEFT (03/31/2011 9:12 AM CAKE INSPECTOR) Anatomical Region Laterality Modality Ankle / Foot Radio Fluoroscop y 03/31/2011 9:20 AM CAKE INSPECTOR Impressions 03/31/2011 11:01 AM CAKE INSPECTOR Impression Tiny radiopacity between first and second metatarsals not seen. D: Malick Aguilar MD. Narrative 03/31/2011 11:01 AM CAKE INSPECTOR Exam: Left foot, 2 views Exam Date: 03/31/2011 Comparison: 02/01/2011 History: Foreign body I+D Findings: Two intraoperative films were obtained with a portable C-arm. The tiny radiopacity between the first and second metatarsals is not well seen on this exam. No acute fracture or dislocation is seen in the partially imaged foot. Procedure Note Pradip Juan M Salty - 03/31/2011 Exam: Left foot, 2 views Exam Date: 03/31/2011 Comparison: 02/01/2011 History: Foreign body I+D Findings: Two intraoperative films were obtained with a portable C-arm. The tiny radiopacity between the first and second metatarsals is not well seen on this exam. No acute fracture or dislocation is seen in the partially imaged foot. IMPRESSION Impression Tiny radiopacity between first and second metatarsals not seen. D: Malick Aguilar MD. Pam Ford MD DIAGNOSTIC IMAGIN G ORDERABLES * GROSS + MICRO EXAM (03/31/2011 8:45 AM CAKE INSPECTOR) [facility] Clinical History [facility] Comment: The patient is a 10-year-old girl who underwent removal of a foreign body from the left foot. Gross Description [facility] Comment: Submitted fresh in one container for gross and microscopic examination labeled with the patient's name, Pat Baum, and left foot tissue are three fragments of yellow-orange adipose tissue with an aggregate measurement of 1.7 x 1.5 x 0.3 cm. The specimen is submitted in toto as A . (CT/ld) Microscopic Examination [facility] Comment: 1 H+E. Sections show unremarkable fibroadipose tissue. (LH/lw) Diagnosis [facility] Comment: DIAGNOSIS: SOFT TISSUE, LEFT FOOT, EXCISION: -FIBROADIPOSE TISSUE. This case has been personally reviewed and interpreted by the attending (teaching) pathologist. Property Man SON GILES, [facility] Resident in Pathology Ree Shen M.D. [facility] Pathologist Casa Mauro M.D. [facility] Electronically Signed By CASA MAURO, [facility] TISSUE SPECIMEN / Unknown 03/31/2011 8:45 AM CAKE INSPECTOR 03/31/2011 10:32 AM CAKE INSPECTOR Pam Ford MD LAB - PATHOLOGY/C YTOLOGY ORDERABLES [facility] [address] [place] [address] * MRI LOWER EXT NON JOINT NON CONTRAST LEFT (03/21/2011 1:33 PM CDT) Anatomical Region Laterality Modality Lower Extremity Magnetic Resonan ce 03/21/2011 1:40 PM CDT Impressions 03/21/2011 3:55 PM CDT Normal MRI of the left foot. D: Anastacio Orellana MD Narrative 03/21/2011 3:55 PM CDT MRI left lower extremity without contrast 03/21/2011 Technique: Multiplanar, multisequence Findings: No foreign bodies are identified. The bones of the foot demonstrate normal marrow signal without evidence of erosion or fracture. The tendons demonstrate normal signal intensity without evidence of rupture or sprain. The muscles are normal in signal characteristics. Procedure Note JuanM Moseley A - 03/21/2011 MRI left lower extremity without contrast 03/21/2011 Technique: Multiplanar, multisequence Findings: No foreign bodies are identified. The bones of the foot demonstrate normal marrow signal without evidence of erosion or fracture. The tendons demonstrate normal signal intensity without evidence of rupture or sprain. The muscles are normal in signal characteristics. IMPRESSION Normal MRI of the left foot. D: Anastacio Orellana MD Joss ROJAS-C MR ORDERABLES * FOOT - LEFT (02/01/2011 9:45 AM CDT) Anatomical Region Laterality Modality Ankle / Foot Radiographic Geetha ging 02/01/2011 9:48 AM CDT Impressions 02/01/2011 10:25 AM CDT Tiny radiopacity as above. This is likely artifact, but foreign body cannot be excluded. D: Jaja Bass MD Narrative 02/01/2011 10:25 AM CDT Exam: Left foot, 3 views Date: February 01, 2011 at 0937 hours Indication: Patient stepped on glass, pain lateral side of foot near the fifth digit Comparison: None available Findings: A tiny round radiopacity is seen on the AP view and between the first and second metatarsals and on the plantar side of the foot on the lateral view. No other radiopaque foreign bodies are seen. No acute fractures or dislocations are seen. The joint spaces are well-preserved. No soft tissue swelling is seen. Procedure Note BerhaneJuan M deleon Salty - 02/01/2011 Exam: Left foot, 3 views Date: February 01, 2011 at 0937 hours Indication: Patient stepped on glass, pain lateral side of foot near the fifth digit Comparison: None available Findings: A tiny round radiopacity is seen on the AP view and between the first and second metatarsals and on the plantar side of the foot on the lateral view. No other radiopaque foreign bodies are seen. No acute fractures or dislocations are seen. The joint spaces are well-preserved. No soft tissue swelling is seen. IMPRESSION Tiny radiopacity as above. This is likely artifact, but foreign body cannot be excluded. D: Jaja Bass MD Dereje Abbasi MD DIAGNOSTIC IMAGING ORDERABLES Care Teams Weather Analyst Relationship Specialty Start Date End Date Arleth Kyle MD [address] [place] [id number] PCP - General 02/01/11
--- OUTSIDE RECORDS SUMMARY | 2024-07-30 17:15 | XMS_ITS | Clinical Summary ---
Author Organization [facility] Address [address] [place] [address] Care Team Providers Care Electric Relay Tester Name Role Phone Arleth Kyle MD Primary Care Provider [phone] Source Comments [facility],non-owned Affiliates and Associated Physician Practices is amultiple site organization consisting of ambulatory clinics and hospital sitesin [place], [place], [place]. This disclosure is being madepursuant to the Care Everywhere program and may not contain all information available regarding this patient. Last updated 18.[facility] Allergies No known active allergies Medications * [...] daily Patient takes 2400 mcg of the Amberg brand vitamin A. Active Encounters Date Type Department Care Team Description 07/07/2024 9:39 AM SALES REPRESENTATIVE [employer] - 07/07/2024 11:59 PM SALES REPRESENTATIVE [employer] Hospital Encounter [facility] [address] [place] [address] Head, Emily Tellez MD Discharge Disposition: Home or Self Care 06/11/2024 1:46 PM SALES REPRESENTATIVE [employer] - 06/11/2024 11:59 PM SALES REPRESENTATIVE [employer] Hospital Encounter [facility] [address] [place] [id number] Juan C Lang MD Discharge Disposition: Home or Self Care 06/11/2024 1:39 PM SALES REPRESENTATIVE [employer] - 06/11/2024 1:45 PM SALES REPRESENTATIVE [employer] Hospital Encounter [facility] [address] [place] [address] Juan C Lang MD Discharge Disposition: Home or Self Care from Last 3 Months Family History Medical History Relation Name Comments Anesthesia Reaction Mother difficul ty waking up Relation Name Status Comments Mother Social History Tobacco Use Types Packs/Day Years [...] Comments Blood Pressure 117/54 06/11/2024 2:42 PM SALES REPRESENTATIVE [employer] Pulse 67 06/11/2024 2:42 PM SALES REPRESENTATIVE [employer] Temperature 36.9 C (98.4 F) 08/25/2011 1:21 AM CDT Respiratory Rate 20 08/25/2011 1:21 AM CDT Oxygen Saturation 100% 08/24/2011 11:45 PM CDT Inhaled Oxygen Concentration - - Weight 78 kg (172 lb) 06/11/2024 2:42 PM SALES REPRESENTATIVE [employer] Height 160 cm (5' 3 ) 06/11/2024 2:58 PM SALES REPRESENTATIVE [employer] Body Mass Index 30.47 06/11/2024 2:42 PM SALES REPRESENTATIVE [employer] Plan of Treatment Health Maintenance Due Date Last Done Comments HIV SCREENING 12/17/2015 HPV VACCINE (1 - 3-dose series) 12/17/2015 CHLAMYDIA/GONORRHEA SCREENING 2016 MENINGOCOCCAL (Group B) VACCINE SHARED DECISION-MAKING (1 of 2 - Standard) 2016 HEPATITIS C SCREENING 12/12/2018 DTAP/TDAP/TD VACCINES (1 - Tdap) 12/17/2019 HEPATITIS B VACCINE (1 of 3 - 19+ 3-dose series) 12/17/2019 COVID-19 VACCINE (1 - 2023-2 5 season) 2024 INFLUENZA VACCINE (#1) 2024 8, 07/05/2010, 04/21/2005 DEPRESSION SCREENING 05/21/2024 OB-ONE HOUR GLUCOSE 08/03/2024 OB-TDAP CURRENT 08/10/2024 OB-RHOGAM INJECTION 08/17/2024 PAP SMEAR 03/26/2027 03/26/2024 ZOSTER VACCINE (1 of 2) 2050 HIB VACCINE Aged Out No longer eligi ble based on patient's age to complete this topic MENINGOCOCCAL GROUPS A/C/Y/W VACCINE Aged Out No longer eligible b ased on patient's age to complete this topic PNEUMOCOCCAL VACCINE Aged Out No long er eligible based on patient's age to complete this topic Respiratory Syncytial Virus (RSV) Vaccine Pt: or over 60 yrs (No Doses Required) Completed Procedures Procedure Name Priority Date/Time Associated Diagnosis Comments SONOGRAM - COMPLETE Routine 07/07/2024 9 :34 AM SALES REPRESENTATIVE [employer] Hx of bariatric surgery 22 weeks gestation of (HCC) Encounter for follow-up ultrasound of anatomy (HCC) SONOGRAM - COMPLETE Routine 06/11/2024 1 :49 PM SALES REPRESENTATIVE [employer] Encounter for anatomic survey (HCC) Hx of bariatric surgery 18 weeks gestation of (HCC) from Last 3 Months Results * SONOGRAM - COMPLETE (07/07/2024 9:34 AM SALES REPRESENTATIVE [employer]) Only the most recent of2 resultswithin the [...] 1 lb 4 oz EFW by Hadlock ([id number]) appropriate Growth Overview Exam date GA BPD (mm) HC (mm) AC (mm) FL (mm) HL (mm) EFW (g) 06/11/2024 18w 3d 44.7 89% 163.1 74% 143.1 84% 26.8 34% 27.5 69% 268 77% 07/07/2024 22w 1d 56.9 88% 205.1 58% 186.2 81% 40.1 67% 39.1 93% 568 88% Anatomy The following structures appear normal: Heart / Thorax 4-chamber view. 7-[id number]-[id number] view. Aortic arch view. Bicaval view. Diaphragm. [...] growth assessment is recommended Coding ====== Procedures 05707: US Preg Uterus Follow Up Ansible PACS Anatomical Region Laterality Modality Other 07/07/2024 9:34 AM SALES REPRESENTATIVE [employer] R Mateusz Jacobson MD [facility] from Last 3 Months Care Teams Electric Relay Tester Relationship Specialty Start Date End Date Arleth Kyle MD [address] [place] [address] PCP - General 02/01/11
--- OUTSIDE RECORDS SUMMARY | 2024-07-30 17:15 | XMS_ITS | Data Portability ---
Author Organization [facility] [place] Address [address] [place] [address] [place] [address] Assessment Encounter Date Assessment Date Assessment LastModified by Organization Details LastModified Time 06/25/2024 06/25/2024 Patient is _20__weeks . Discussed plan. Not available 06/25/2024 16:35:49 Plan of Treatment Reminders Order Date Submit Date Provider Last Modified By Organization Details Last Modified Time Details Appointments OB ROUTINE 2024 02:00P Javid BELLAMY MD Not available Not available Not available Lab None recorded. Referral None recorded. Procedures None recorded. Surgeries None recorded. Imaging US, obstetric , nuchal transluce ncy 2023 024 [email or web address] [place], [facility] [address], [place], [address], 04/30/2024 22:38:15 US, obstetric , 1st trimester 2023 024 [email or web address] [place], [facility] [address], [place], [address], 04/30/2024 22:38:15 Medication Orders None recorded. Patient TargetsNo targets recorded. Patient InstructionsNo instructions recorded. Reason for Referral None Reported. Results Created Date Observation Date Name Description Value Unit Range Abnormal Flag Note LastModifiedBy Organization Detail LastModifiedTime 05/07/20 24 05/07/2024 [UNIT Y] ANEUP LOIDY NIPT fraction 11.0% normal Not Available Madhu garces [address], [place], [address], 05/07/2024 00:23:09 05/07/20 24 05/07/2024 [UNIT Y] ANEUP LOIDY NIPT 22Q11.2 microdeletio n LOW RISK <1 in 10,000 normal Not Available [facility] [address] , [place], [address], 05/07/2024 00:23:09 05/07/20 24 05/07/2024 [UNIT Y] ANEUP LOIDY NIPT sex chromosome aneuploidy NOT DETECT ED normal Not Available [facility] [address] [facility], [place], [address], 05/07/2024 00:23:09 05/07/20 24 05/07/2024 [UNIT Y] ANEUP LOIDY NIPT monosomy X LOW RISK <1 in 10,000 normal Not Available [facility] [address] [facility], [place], [address], 05/07/2024 00:23:09 05/07/20 24 05/07/2024 [UNIT Y] ANEUP LOIDY NIPT trisomy 13 LOW RISK <1 in 10,000 normal Not Available [facility] [address] [facility], [place], [address], 05/07/2024 00:23:09 05/07/20 24 05/07/2024 [UNIT Y] ANEUP LOIDY NIPT trisomy 18 LOW RISK <1 in 10,000 normal Not Available [facility] [address] [facility], [place], [address], 05/07/2024 00:23:09 05/07/20 24 05/07/2024 [UNIT Y] ANEUP LOIDY NIPT trisomy 21 LOW RISK <1 in 10,000 normal Not Available [facility] [address] [facility], [place], [address], 05/07/2024 00:23:09 05/07/20 24 05/07/2024 [UNIT Y] ANEUP LOIDY NIPT sex MALE normal Not Available [facility] [address], [place], [address], 05/07/2024 00:23:09 05/07/20 24 05/07/2024 [UNIT Y] ANEUP LOIDY NIPT gestation SINGLE TON normal Not Available [facility] [address], [place], [address], 05/07/2024 00:23:09 05/07/20 24 05/07/2024 [UNIT Y] ANEUP LOIDY NIPT for detailed report, see pdf See PDF normal Not Available [facility] [address], [place], [address], 05/07/2024 00:23:09 05/11/20 24 05/11/2024 [UNIT Y] SERAFIN Dickson sickle cell disease/beta -thalassemia /hemoglobino pathies carrier screen NEGATI VE normal Not Available [facility] [address], [place], [address], 05/11/2024 13:36:05 05/11/20 24 05/11/2024 [UNIT Y] SERAFIN Dickson alpha-thalas semia carrier screen NEGATI VE normal Not Available [facility] [address], [place], [address], 05/11/2024 13:36:05 05/11/20 24 05/11/2024 [UNIT Y] SERAFIN Dickson cystic fibrosis carrier screen NEGATI VE normal Not Available [facility] [address], [place], [address], 05/11/2024 13:36:05 05/11/20 24 05/11/2024 [UNIT Y] SERAFIN Dickson spinal muscular atrophy carrier screen NEGATI VE 2 SMN1 copies , SNP not presen t normal Not Available [facility] [address], [place], [address], 05/11/2024 13:36:05 05/11/20 24 05/11/2024 [UNIT Y] SERAFIN WALTERS SCREEil Yessi for detailed report, see pdf See PDF normal Not Available [facility] [address], [place], [address], 05/11/2024 13:36:05 04/30/20 24 04/30/2024 CULTU RE: URINE result report SEE RESULT S BELOW Test: Cultu re: Urine Speci men Sourc e: Urine - Clean Catch Speci men Type: Urine Speci men Date: 04/30 1616 Resul t Date: 05/02 0612 Resul t Statu s: Final resul t Abnor mal: No Resul ting Lab: [facility] [address] [facility] [address] Tel: CULTU RE ----- ----- ----- --- No growt h in 1 day (dete ction level of 10,00 0 colon ies / ml.) Not Available [facility] (Lab) [address] [facility], [place], [address], 05/02/2024 07:18:27 04/30/20 24 04/30/2024 CBC W/DIF F WBC 10.9 10'3/ uL 3.5-10 .5 high Not Available [facility] (Lab) [address] [facility], [place], [address], 05/06/2024 18:32:11 04/30/20 24 04/30/2024 CBC W/DIF F RBC 4.32 10'6/ uL (based on docume nted legal sex) 3.80-5 .20 Not Available [facility] (Lab) [address] [facility], [place], [address], 05/06/2024 18:32:11 04/30/20 24 04/30/2024 CBC W/DIF F HGB 12.6 g/dL (based on docume nted legal sex) 11.6-1 5.4 Not Available [facility] (Lab) [address] [place], [address], 05/06/2024 18:32:11 04/30/20 24 04/30/2024 CBC W/DIF F HCT 37.7 % (based on docume nted legal sex) 34.0-4 5.0 Not Available [facility] (Lab) [address], [place], [address], 05/06/2024 18:32:11 04/30/20 24 04/30/2024 CBC W/DIF F MCV 87.3 fL 80.0-9 9.0 Not Available [facility] (Lab) [address], [place], [address], 05/06/2024 18:32:11 04/30/20 24 04/30/2024 CBC W/DIF F MCH 29.2 pg 27.0-3 4.0 Not Available [facility] (Lab) [address], [place], [address], 05/06/2024 18:32:11 04/30/20 24 04/30/2024 CBC W/DIF F MCHC 33.4 g/dL 32.0-3 5.5 Not Available [facility] (Lab) [address], [place], [address], 05/06/2024 18:32:11 04/30/20 24 04/30/2024 CBC W/DIF F RDW 11.9 % 11.0-1 5.0 Not Available [facility] (Lab) [address], [place], [address], 05/06/2024 18:32:11 04/30/20 24 04/30/2024 CBC W/DIF F plt 266 10'3/ uL 150-40 0 Not Available [facility] (Lab) [address], [place], [address], 05/06/2024 18:32:11 04/30/20 24 04/30/2024 CBC W/DIF F MPV 10.7 fL 8.8-12 .1 Not Available [facility] (Lab) [address] [facility], [place], [address], 05/06/2024 18:32:11 04/30/20 24 04/30/2024 CBC W/DIF F NRBC's 0.0 % 0.0 Not Available [facility] (Lab) [address] [facility], [place], [address], 05/06/2024 18:32:11 04/30/20 24 04/30/2024 CBC W/DIF F absolute NRBCs 0.0 10'3/ uL no refere nce range establ ished Not Available [facility] (Lab) [address] [facility], [place], [address], 05/06/2024 18:32:11 04/30/20 24 04/30/2024 CBC W/DIF F neutrophils 76.6 % 34.0-7 3.0 high Not Available [facility] (Lab) [address] [facility], [place], [address], 05/06/2024 18:32:11 04/30/20 24 04/30/2024 CBC W/DIF F lymphocytes 15.2 % 15.0-5 0.0 Not Available [facility] (Lab) [address] [facility], [place], [address], 05/06/2024 18:32:11 04/30/20 24 04/30/2024 CBC W/DIF F monocytes 5.3 % 1.0-15 .0 Not Available [facility] (Lab) [address] [facility], [place], [address], 05/06/2024 18:32:11 04/30/20 24 04/30/2024 CBC W/DIF F eosinophils 2.3 % 0.0-8. 0 Not Available [facility] (Lab) [address] [facility], [place], [address], 05/06/2024 18:32:11 04/30/20 24 04/30/2024 CBC W/DIF F basophils 0.2 % 0.0-2. 0 Not Available [facility] (Lab) [address] [facility], [place], [address], 05/06/2024 18:32:11 04/30/20 24 04/30/2024 CBC W/DIF F immature granulocytes 0.4 % no define d refere nce range Not Available [facility] (Lab) [address] [facility], [place], [address], 05/06/2024 18:32:11 04/30/20 24 04/30/2024 CBC W/DIF F absolute neutrophils 8.4 10'3/ uL 1.5-8. 0 high Not Available [facility] (Lab) [address] [facility], [place], [address], 05/06/2024 18:32:11 04/30/20 24 04/30/2024 CBC W/DIF F absolute lymphocytes 1.7 10'3/ uL 1.0-4. 0 Not Available [facility] (Lab) [address] [facility], [place], [address], 05/06/2024 18:32:11 04/30/20 24 04/30/2024 CBC W/DIF F absolute monocytes 0.6 10'3/ uL 0.2-1. 0 Not Available [facility] (Lab) [address] [facility], [place], [address], 05/06/2024 18:32:11 04/30/20 24 04/30/2024 CBC W/DIF F absolute eosinophils 0.3 10'3/ uL 0.0-0. 6 Not Available [facility] (Lab) [address] [facility], [place], [address], 05/06/2024 18:32:11 04/30/20 24 04/30/2024 CBC W/DIF F absolute basophils 0.0 10'3/ uL 0.0-0. 3 Not Available [facility] (Lab) [address] [place], [address], 05/06/2024 18:32:11 04/30/20 24 04/30/2024 CBC W/DIF F absolute immature granulocytes 0.0 10'3/ uL 0.00-0 .10 05/01 3:04 AM: P indic ates parti al resul ts on a panel have been relea sed. Addit ional resul ts will follo w. 05/01 3:04 AM: This resul t has been final verif ied. No addit ional or schulte ed resul ts are expec esa. Not Available [facility] (Lab) [address] [facility], [place], [address], 05/06/2024 18:32:11 04/30/20 24 04/30/2024 HEPAT ITIS B SURFA CE ANTIG EN hepatitis B surface antigen Non-re active non-re active This assay was perfo rmed using [employer] reage nts and test kits. Value s obtai medina with other assay metho ds or kits canno t be used inter schulte eably . Not Available [facility] (Lab) [address] [facility], [place], [address], 05/06/2024 18:32:11 04/30/20 24 04/30/2024 HEPAT ITIS C ANTIB MILI SCREE N, REFLE X TO CONFI RMATI ON hepatitis C antibody Non-re active non-re active Antib odies to HCV Not Detec esa, does not exclu de the possi bilit y of expos ure to HCV. Not Available [facility] (Lab) [address] [facility], [place], [address], 05/06/2024 18:32:12 04/30/20 24 04/30/2024 HIV 1/2 ANTIG EN/AN TIBOD Y, REFLE X CONFI RMATI ON HIV antigen/anti body Nonrea ctive nonrea ctive HIV-1 antig en and HIV-1 /HIV- 2 antib odies were not detec esa. No labor atory evide nce of HIV infec tion. Not Available [facility] (Lab) [address] [facility], [place], [address], 05/06/2024 18:32:12 04/30/20 24 04/30/2024 CMP(C OMPRE HENSI VE METAB OLIC PANEL ) sodium 137 mmol/ L 133-14 6 Not Available [facility] (Lab) [address] [facility], [place], [address], 05/06/2024 18:32:13 04/30/20 24 04/30/2024 CMP(C OMPRE HENSI VE METAB OLIC PANEL ) potassium 3.7 mmol/ L 3.5-5. 1 Not Available [facility] (Lab) [address] [facility], [place], [address], 05/06/2024 18:32:13 04/30/20 24 04/30/2024 CMP(C OMPRE HENSI VE METAB OLIC PANEL ) chloride 104 mmol/ L 98-107 Not Available [facility] (Lab) [address] [facility], [place], [address], 05/06/2024 18:32:13 04/30/20 24 04/30/2024 CMP(C OMPRE HENSI VE METAB OLIC PANEL ) carbon dioxide 25 mmol/ L 21-31 Not Available [facility] (Lab) [address] [facility], [place], [address], 05/06/2024 18:32:13 04/30/20 24 04/30/2024 CMP(C OMPRE HENSI VE METAB OLIC PANEL ) anion gap 8 mmol/ L 4-13 Not Available [facility] (Lab) [address] [facility], [place], [address], 05/06/2024 18:32:13 04/30/20 24 04/30/2024 CMP(C OMPRE HENSI VE METAB OLIC PANEL ) blood urea nitrogen 4 mg/dL 7-25 low Not Available [facility] (Lab) [address] [facility], [place], [address], 05/06/2024 18:32:13 04/30/20 24 04/30/2024 CMP(C OMPRE HENSI VE METAB OLIC PANEL ) creatinine 0.51 mg/dL 0.60-1 .30 low Not Available [facility] (Lab) [address], [place], [address], 05/06/2024 18:32:13 04/30/20 24 04/30/2024 CMP(C OMPRE HENSI VE METAB OLIC PANEL ) egfrcr (CKD-epi 2020) >90 mL/mi n/1.7 3_m2 >=60 Not Available [facility] (Lab) [address] [facility], [place], [address], 05/06/2024 18:32:13 04/30/20 24 04/30/2024 CMP(C OMPRE HENSI VE METAB OLIC PANEL ) calcium 9.2 mg/dL 8.3-10 .5 Not Available [facility] (Lab) [address], [place], [address], 05/06/2024 18:32:13 04/30/20 24 04/30/2024 CMP(C OMPRE HENSI VE METAB OLIC PANEL ) glucose 65 mg/dL 70-100 low Not Available [facility] (Lab) [address] [facility], [place], [address], 05/06/2024 18:32:13 04/30/20 24 04/30/2024 CMP(C OMPRE HENSI VE METAB OLIC PANEL ) protein, total 6.5 g/dL 6.4-8. 3 Not Available [facility] (Lab) [address] [facility], [place], [address], 05/06/2024 18:32:13 04/30/20 24 04/30/2024 CMP(C OMPRE HENSI VE METAB OLIC PANEL ) albumin 4.2 g/dL 3.5-5. 0 Not Available [facility] (Lab) [address], [place], [address], 05/06/2024 18:32:13 04/30/20 24 04/30/2024 CMP(C OMPRE HENSI VE METAB OLIC PANEL ) ALT 13 units /L 9-43 Not Available [facility] (Lab) [address] [facility], [place], [address], 05/06/2024 18:32:13 04/30/20 24 04/30/2024 CMP(C OMPRE HENSI VE METAB OLIC PANEL ) alkaline phosphatase 58 units /L 34-104 Not Available [facility] (Lab) [address] [facility], [place], [address], 05/06/2024 18:32:13 04/30/20 24 04/30/2024 CMP(C OMPRE HENSI VE METAB OLIC PANEL ) AST 17 units /L 13-39 Not Available [facility] (Lab) [address] [facility], [place], [address], 05/06/2024 18:32:13 04/30/20 24 04/30/2024 CMP(C OMPRE HENSI VE METAB OLIC PANEL ) bilirubin, total 0.2 mg/dL 0.2-1. 2 Not Available [facility] (Lab) [address] [facility], [place], [address], 05/06/2024 18:32:13 04/30/20 24 04/30/2024 HEMOG LOBIN A1C hemoglobin A1C 5.3 % 4.0-5. 6 The Ameri can [employer] iatio n recom mends that a prima ry goal of thera py zane d be a HBA1C of < 7% and that physi cians shoul d reeva luate the treat ment regim en in patie nts with HBA1C value s consi stent ly > 8%. <5.7% Palmira l 5.7 - 6.4% Incre ased risk for diabe tabatha >=6.5 % Diagn ostic of diabe tabatha <7.0% Goal of thera py >8.0% Actio n sugge sted Not Available [facility] (Lab) [address] [facility], [place], [address], 05/06/2024 18:32:13 04/30/20 24 04/30/2024 CHRISTOPHER TIN / IRON / TRANS CHRISTOPHER N / TIBC iron 29 ug/dL 40-170 low Not Available [facility] (Lab) [address] [facility], [place], [address], 05/06/2024 18:32:14 04/30/20 24 04/30/2024 CHRISTOPHER TIN / IRON / TRANS CHRISTOPHER N / TIBC transferrin 233 mg/dL 200-36 0 Not Available [facility] (Lab) [address] [facility], [place], [address], 05/06/2024 18:32:14 04/30/20 24 04/30/2024 CHRISTOPHER TIN / IRON / TRANS CHRISTOPHER N / TIBC ferritin 41.1 NG/mL 8.0-25 2.0 Not Available [facility] (Lab) [address] [facility], [place], [address], 05/06/2024 18:32:14 04/30/20 24 04/30/2024 CHRISTOPHER TIN / IRON / TRANS CHRISTOPHER N / TIBC TIBC 326 ug/dL 250-45 0 Not Available [facility] (Lab) [address] [facility], [place], [address], 05/06/2024 18:32:14 04/30/20 24 04/30/2024 CHRISTOPHER TIN / IRON / TRANS CHRISTOPHER N / TIBC iron saturation 9 % 20-55 low Not Available [facility] (Lab) [address] [facility], [place], [address], 05/06/2024 18:32:14 04/30/20 24 04/30/2024 RUBEL LA IGG ANTIB MILI, QUANT rubella antibodies, IgG Reacti ve reacti ve Not Available [facility] (Lab) [address] [facility], [place], [address], 05/06/2024 18:32:14 04/30/20 24 04/30/2024 RUBEL LA IGG ANTIB MILI, QUANT rubella antibodies, IgG quant 29.8 IU/mL >=10 Non-r eacti ve (Non- Immun e) <10 IU/mL React jennifer (Immu ne) > or = 10 IU/mL Not Available [facility] (Lab) [address] [facility], [place], [address], 05/06/2024 18:32:14 04/30/20 24 04/30/2024 VITAM IN B12 / FOLAT E PANEL vitamin B12 452 pg/mL 180-91 4 Palmira l Range : 180-9 14 pg/mL . Indet ermin ate Range : 145-1 80 pg/mL . Defic ient Range : <=145 pg/mL . Not Available [facility] (Lab) [address] [facility], [place], [address], 05/06/2024 18:32:15 04/30/20 24 04/30/2024 VITAM IN B12 / FOLAT E PANEL folate, serum >20.0 NG/mL 6.0-20 .0 high Not Available [facility] (Lab) [address] [place], [address], 05/06/2024 18:32:15 04/30/20 24 04/30/2024 VITAM IN D, 25-OH (TOTA L D2/D3 ) vitamin D, 25-hydroxy, total 29.7 NG/mL 30.0-1 00.0 low Sugge stive of Defic iency : <20 ng/mL Sugge stive of Insuf ficie ncy: 20-29 ng/mL Sugge stive of Suffi cienc y: 30-10 0 ng/mL Sugge stive of Toxic ity: >150 ng/mL Not Available [facility] (Lab) [address] [place], [address], 05/06/2024 18:32:15 04/30/20 24 04/30/2024 TYPE/ RH/SC REEN ABO/Rh type O POS Not Available [facility] (Lab) [address] [place], [address], 05/06/2024 18:32:16 04/30/20 24 04/30/2024 TYPE/ RH/SC REEN antibody screen NEG Not Available [facility] (Lab) [address] [facility], [place], [address], 05/06/2024 18:32:16 04/30/20 24 04/30/2024 TYPE/ RH/SC REEN exp date 2023 23:59 Not Available [facility] (Lab) [address] [facility], [place], [address], 05/06/2024 18:32:16 04/30/20 24 04/30/2024 RPR SCREE N, REFLE X TITER /CONF IRMAT ION RPR screen Nonrea ctive nonrea ctive Not Available [facility] (Lab) [address] [facility], [place], [address], 05/06/2024 18:32:16 04/30/20 24 04/30/2024 VITAM IN A (RETI NOL) vitamin A 27 mcg/d L 38-98 low (Note ) Cli n Chem Vol. 34.No .8. [id number] [phone] Vitam in suppl ement ation withi n 24 hours prior to blood draw may affec t the accur acy of resul ts. This test was devel oped and its luz tical perfo rmanc e sary cteri stics have been deter mined by [facility]. It has not been clear ed or appro yanely by the FDA. This assay has been valid ated pursu ant to the CLIA regul ation s and is used for clini jayson purpo ses. MDF med fusio n [address] [facility] [address] [phone] Latrice Enamorado MD, PhD Perfo rming Organ izati on Infor matio n: Site ID: [id number] Name: Med[facility] ancelmo- Med[facility] ancelmo Addre ss: [address], [address] [place] [address] Direc tor: Latrice Enamorado MD,Ph D Not Available [facility] (Lab) [address], [place], [address], 05/06/2024 18:32:16 04/30/20 24 04/30/2024 drug scree n, urine Amphetamines : negati ve Not Available [place] [address], [place], [address], 04/30/2024 16:02:32 04/30/20 24 04/30/2024 drug scree n, urine Cannabinoids : negati ve Not Available [place] [address], [place], [address], 04/30/2024 16:02:32 04/30/20 24 04/30/2024 drug scree n, urine Cocaine: negati ve Not Available [place] [address], [place], [address], 04/30/2024 16:02:32 04/30/20 24 04/30/2024 drug scree n, urine Opiates: negati ve Not Available [place] [address], [place], [address], 04/30/2024 16:02:32 04/30/20 24 04/30/2024 drug scree n, urine Phenocyclidi ne: negati ve Not Available [place] [address], [place], [address], 04/30/2024 16:02:32 04/30/20 24 04/30/2024 drug scree n, urine Barbiturates : negati ve Not Available [place] [address], [place], [address], 04/30/2024 16:02:32 04/30/20 24 04/30/2024 drug scree n, urine Benzodiazepi ermias: negati ve Not Available [place] [address], [place], [address], 04/30/2024 16:02:32 04/30/20 24 04/30/2024 drug scree n, urine Ethanol: negati ve Not Available [place] [address], [place], [address], 04/30/2024 16:02:32 04/30/20 24 04/30/2024 drug scree n, urine Hallucinogen s: negati ve Not Available [place] [address], [place], [address], 04/30/2024 16:02:32 04/30/20 24 04/30/2024 drug scree n, urine Inhalants: negati ve Not Available [place] [address], [place], [address], 04/30/2024 16:02:32 04/30/20 24 04/30/2024 drug scree n, urine Anabolic Steroids: negati ve Not Available [place] [address], [place], [address], 04/30/2024 16:02:32 04/30/20 24 04/30/2024 drug scree n, urine Other: negati ve Not Available [place] [address], [place], [address], 04/30/2024 16:02:32 06/25/19 25 06/25/2024 CBC W/DIF F WBC 9.7 10'3/ uL 3.5-10 .5 Not Available [facility] (Lab) [address], [place], [address], 07/02/2024 10:14:58 06/25/19 25 06/25/2024 CBC W/DIF F RBC 4.32 10'6/ uL (based on docume nted legal sex) 3.80-5 .20 Not Available [facility] (Lab) [address], [place], [address], 07/02/2024 10:14:58 06/25/19 25 06/25/2024 CBC W/DIF F HGB 12.4 g/dL (based on docume nted legal sex) 11.6-1 5.4 Not Available [facility] (Lab) [address], [place], [address], 07/02/2024 10:14:58 06/25/19 25 06/25/2024 CBC W/DIF F HCT 38.2 % (based on docume nted legal sex) 34.0-4 5.0 Not Available [facility] (Lab) [address], [place], [address], 07/02/2024 10:14:58 06/25/19 25 06/25/2024 CBC W/DIF F MCV 88.4 fL 80.0-9 9.0 Not Available [facility] (Lab) [address], [place], [address], 07/02/2024 10:14:58 06/25/19 25 06/25/2024 CBC W/DIF F MCH 28.7 pg 27.0-3 4.0 Not Available [facility] (Lab) [address], [place], [address], 07/02/2024 10:14:58 06/25/19 25 06/25/2024 CBC W/DIF F MCHC 32.5 g/dL 32.0-3 5.5 Not Available [facility] (Lab) [address], [place], [address], 07/02/2024 10:14:58 06/25/19 25 06/25/2024 CBC W/DIF F RDW 12.3 % 11.0-1 5.0 Not Available [facility] (Lab) [address], [place], [address], 07/02/2024 10:14:58 06/25/19 25 06/25/2024 CBC W/DIF F plt 280 10'3/ uL 150-40 0 Not Available [facility] (Lab) [address] [facility], [place], [address], 07/02/2024 10:14:58 06/25/19 25 06/25/2024 CBC W/DIF F MPV 10.9 fL 8.8-12 .1 Not Available [facility] (Lab) [address] [facility], [place], [address], 07/02/2024 10:14:58 06/25/19 25 06/25/2024 CBC W/DIF F neutrophils 71.1 % 34.0-7 3.0 Not Available [facility] (Lab) [address] [facility], [place], [address], 07/02/2024 10:14:58 06/25/19 25 06/25/2024 CBC W/DIF F lymphocytes 19.7 % 15.0-5 0.0 Not Available [facility] (Lab) [address] [facility], [place], [address], 07/02/2024 10:14:58 06/25/19 25 06/25/2024 CBC W/DIF F monocytes 5.9 % 1.0-15 .0 Not Available [facility] (Lab) [address] [facility], [place], [address], 07/02/2024 10:14:58 06/25/19 25 06/25/2024 CBC W/DIF F eosinophils 2.2 % 0.0-8. 0 Not Available [facility] (Lab) [address] [facility], [place], [address], 07/02/2024 10:14:58 06/25/19 25 06/25/2024 CBC W/DIF F basophils 0.3 % 0.0-2. 0 Not Available [facility] (Lab) [address] [place], [address], 07/02/2024 10:14:58 06/25/19 25 06/25/2024 CBC W/DIF F immature granulocytes 0.8 % no define d refere nce range Immat ure Granu locyt es (IG) repre sents autom ated enume ratio n of Metam yeloc ytes, Myelo cytes and Promy elocy tabatha when IG is < 5%. Blast s are not inclu ded in IG and repor esa separ ately if prese nt. Not Available [facility] (Lab) [address] [facility], [place], [place], [id number], 07/02/2024 10:14:58 06/25/19 25 06/25/2024 CBC W/DIF F absolute neutrophils 6.9 10'3/ uL 1.5-8. 0 Not Available [facility] (Lab) [address], [place], [address], 07/02/2024 10:14:58 06/25/19 25 06/25/2024 CBC W/DIF F absolute lymphocytes 1.9 10'3/ uL 1.0-4. 0 Not Available [facility] (Lab) [address], [place], [address], 07/02/2024 10:14:58 06/25/19 25 06/25/2024 CBC W/DIF F absolute monocytes 0.6 10'3/ uL 0.2-1. 0 Not Available [facility] (Lab) [address], [place], [address], 07/02/2024 10:14:58 06/25/19 25 06/25/2024 CBC W/DIF F absolute eosinophils 0.2 10'3/ uL 0.0-0. 6 Not Available [facility] (Lab) [address], [place], [address], 07/02/2024 10:14:58 06/25/19 25 06/25/2024 CBC W/DIF F absolute basophils 0.0 10'3/ uL 0.0-0. 3 Not Available [facility] (Lab) [address], [place], [address], 07/02/2024 10:14:58 06/25/19 25 06/25/2024 CBC W/DIF F absolute immature granulocytes 0.1 10'3/ uL 0.00-0 .10 Refer ence range s for nonbi nary/ inter sex or unspe cifie d gende r patie nts have not been estab lishe d. Pleas e refer to the kokio wing table for range s estab lishe d for cisge nder patie nts and evalu ate in the clini jayson opal xt of the indiv idual patie nt: https :[email or web address] mireles book. nm.or g/Gen derX Not Available [facility] (Lab) [address], [place], [address], 07/02/2024 10:14:58 06/25/19 25 06/25/2024 CMP(C OMPRE HENSI VE METAB OLIC PANEL ) sodium 138 mmol/ L 133-14 6 Not Available [facility] (Lab) [address], [place], [address], 07/02/2024 10:14:58 06/25/19 25 06/25/2024 CMP(C OMPRE HENSI VE METAB OLIC PANEL ) potassium 4.1 mmol/ L 3.5-5. 1 Not Available [facility] (Lab) [address] [place], [address], 07/02/2024 10:14:58 06/25/19 25 06/25/2024 CMP(C OMPRE HENSI VE METAB OLIC PANEL ) chloride 104 mmol/ L 98-107 Not Available [facility] (Lab) [address] [place], [address], 07/02/2024 10:14:58 06/25/19 25 06/25/2024 CMP(C OMPRE HENSI VE METAB OLIC PANEL ) carbon dioxide 27 mmol/ L 21-31 Not Available [facility] (Lab) [address] [place], [address], 07/02/2024 10:14:58 06/25/19 25 06/25/2024 CMP(C OMPRE HENSI VE METAB OLIC PANEL ) anion gap 7 mmol/ L 4-13 Not Available [facility] (Lab) [address], [place], [address], 07/02/2024 10:14:58 06/25/19 25 06/25/2024 CMP(C OMPRE HENSI VE METAB OLIC PANEL ) blood urea nitrogen 11 mg/dL 7-25 Not Available [facility] (Lab) [address], [place], [address], 07/02/2024 10:14:58 06/25/19 25 06/25/2024 CMP(C OMPRE HENSI VE METAB OLIC PANEL ) creatinine 0.45 mg/dL 0.60-1 .30 low Not Available [facility] (Lab) [address], [place], [address], 07/02/2024 10:14:58 06/25/19 25 06/25/2024 CMP(C OMPRE HENSI VE METAB OLIC PANEL ) egfrcr (CKD-epi 2020) >90 mL/mi n/1.7 3_m2 >=60 Not Available [facility] (Lab) [address], [place], [address], 07/02/2024 10:14:58 06/25/19 25 06/25/2024 CMP(C OMPRE HENSI VE METAB OLIC PANEL ) calcium 8.9 mg/dL 8.3-10 .5 Not Available [facility] (Lab) [address], [place], [address], 07/02/2024 10:14:58 06/25/19 25 06/25/2024 CMP(C OMPRE HENSI VE METAB OLIC PANEL ) glucose 69 mg/dL 70-100 low Not Available [facility] (Lab) [address] [place], [address], 07/02/2024 10:14:58 06/25/19 25 06/25/2024 CMP(C OMPRE HENSI VE METAB OLIC PANEL ) protein, total 6.3 g/dL 6.4-8. 3 low Not Available [facility] (Lab) [address], [place], [address], 07/02/2024 10:14:58 06/25/19 25 06/25/2024 CMP(C OMPRE HENSI VE METAB OLIC PANEL ) albumin 3.8 g/dL 3.5-5. 0 Not Available [facility] (Lab) [address], [place], [address], 07/02/2024 10:14:58 06/25/19 25 06/25/2024 CMP(C OMPRE HENSI VE METAB OLIC PANEL ) ALT 46 units /L 9-43 high Not Available [facility] (Lab) [address], [place], [address], 07/02/2024 10:14:58 06/25/19 25 06/25/2024 CMP(C OMPRE HENSI VE METAB OLIC PANEL ) alkaline phosphatase 58 units /L 34-104 Not Available [facility] (Lab) [address], [place], [address], 07/02/2024 10:14:58 06/25/19 25 06/25/2024 CMP(C OMPRE HENSI VE METAB OLIC PANEL ) AST 33 units /L 13-39 Not Available [facility] (Lab) [address], [place], [address], 07/02/2024 10:14:58 06/25/19 25 06/25/2024 CMP(C OMPRE HENSI VE METAB OLIC PANEL ) bilirubin, total 0.2 mg/dL 0.2-1. 2 Not Available [facility] (Lab) [address] [place], [address], 07/02/2024 10:14:58 06/25/19 25 06/25/2024 CHRISTOPHER TIN / IRON / TRANS CHRISTOPHER N / TIBC iron 44 ug/dL 40-170 Not Available [facility] (Lab) [address] [place], [address], 07/02/2024 10:14:59 06/25/19 25 06/25/2024 CHRISTOPHER TIN / IRON / TRANS CHRISTOPHER N / TIBC transferrin 296 mg/dL 200-36 0 Not Available [facility] (Lab) [address] [place], [address], 07/02/2024 10:14:59 06/25/19 25 06/25/2024 CHRISTOPHER TIN / IRON / TRANS CHRISTOPHER N / TIBC ferritin 10.0 NG/mL 8.0-25 2.0 Not Available [facility] (Lab) [address] [place], [address], 07/02/2024 10:14:59 06/25/19 25 06/25/2024 CHRISTOPHER TIN / IRON / TRANS CHRISTOPHER N / TIBC TIBC 414 ug/dL 250-45 0 Not Available [facility] (Lab) [address] [place], [address], 07/02/2024 10:14:59 06/25/19 25 06/25/2024 CHRISTOPHER TIN / IRON / TRANS CHRISTOPHER N / TIBC iron saturation 11 % 20-55 low Not Available [facility] (Lab) [address] [place], [address], 07/02/2024 10:14:59 06/25/19 25 06/25/2024 VITAM IN B12 vitamin B12 319 pg/mL 180-91 4 Palmira l Range : 180-9 14 pg/mL . Indet ermin ate Range : 145-1 80 pg/mL . Defic ient Range : <=145 pg/mL . Not Available [facility] (Lab) [address] [place], [address], 07/02/2024 10:14:59 06/25/19 25 06/25/2024 VITAM IN D, 25-OH (TOTA L D2/D3 ) vitamin D, 25-hydroxy, total 29.1 NG/mL 30.0-1 00.0 low Sugge stive of Defic iency : <20 ng/mL Sugge stive of Insuf ficie ncy: 20-29 ng/mL Sugge stive of Suffi cienc y: 30-10 0 ng/mL Sugge stive of Toxic ity: >150 ng/mL Not Available [facility] (Lab) [address], [place], [address], 07/02/2024 10:15:00 06/25/19 25 06/25/2024 VITAM IN A (RETI NOL) vitamin A 48 mcg/d L 38-98 (Note ) Cli n Chem Vol. 34.No .8. pp162 5-162 1997 Vitam in suppl ement ation withi n 24 hours prior to blood draw may affec t the accur acy of resul ts. This test was devel oped and its luz tical perfo rmanc e sary cteri stics have been deter mined by [facility]. It has not been clear ed or appro yanely by the FDA. This assay has been valid ated pursu ant to the CLIA regul ation s and is used for clini jayson purpo ses. MDF med fusio n [address] [place] [address] [phone] Latrice Enamorado MD, PhD Perfo rming Organ izati on Infor matio n: Site ID: [id number] Name: MedFu ancelmo- MedFu ancelmo Addre ss: [address], [address] [place] [address] Direc tor: Latrice Enamorado MD,Ph D Not Available [facility] (Lab) [address], [place], [address], 07/02/2024 10:15:01 04/30/20 24 04/30/2024 US, obste tric, nucha l trans lucen cy No observ ation record ed. [email or web address] [place] [address], [place], [address], 04/30/2024 16:23:18 04/30/20 24 04/30/2024 US, obste tric, 1st trime ster No observ ation record ed. [email or web address] [place] [address], [place], [address], 04/30/2024 16:23:26 04/30/20 24 04/30/2024 US, obste tric, nucha l trans lucen cy No observ ation record ed. [email or web address] [address], [place], [address], 04/30/2024 22:14:25 06/11/19 25 06/11/2024 US, obste tric, follo w-up No observ ation record ed. [email or web address] [facility] [address], [place], [address], 06/16/2024 19:29:30 06/11/19 25 06/11/2024 US, obste tric, follo w-up No observ ation record ed. [email or web address] [facility] [address] [place] [address], [id number], 06/24/2024 22:25:46 07/07/19 25 07/07/2024 US, obste tric, follo w-up No observ ation record ed. [email or web address] [facility] [address] [place] [address], [id number], 07/11/2024 00:03:29 07/07/19 25 07/07/2024 US, obste tric, follo w-up No observ ation record ed. [facility] [address] [place] [address], [id number], 07/23/2024 14:29:46 07/08/19 25 07/07/2024 US, obste tric, follo w-up No observ ation record ed. [facility] [address], [place], [address], 07/10/2024 23:45:49 07/09/19 25 07/07/2024 US, obste tric, follo w-up No observ ation record ed. [facility] [address], [place], [address], 07/10/2024 23:46:49 07/09/19 25 07/07/2024 US, obste tric, follo w-up No observ ation record ed. [facility] [address] [place] [address], [id number], 07/10/2024 23:48:37 Result Notes None recorded. Problems Name Problem SNOMED Code Status Onset Date Resolution Date Notes Provider Name and Address Organization Details Recorded Time History of bariatric surgical procedure 008390668 Active check labs [facility] referral faxed 05/08 [place] location scheduled 06/11/24 145 Level II US and OV 07/07 945 for US Checking BS QID Anesthesi ology consult in 3rd trimest -schedule with pre -admit appt Monitor labs per [facility] CMP/ lipid panel , Anemia panel , parathyro id hormone Doris Gaxiola null, [facility] 5 15:20:01 [id number] Active 2023 Kasia Goff null, [facility] 4 12:03:45 Atypical squamous cells of undetermi medina significa nce Active +HPV, colpo scheduled Deepa Cleary, [address]OM[address], [place], [address], [place] [facility] 4 12:13:59 History of bariatric surgical procedure [id number] Active check labs [facility] referral faxed 05/08 [place] location scheduled 06/11/24 145 Level II US and OV 07/07 945 for US Checking BS QID Anesthesi ology consult in -schedule with pre -admit appt Monitor labs per [facility] CMP/ lipid panel , Anemia panel , parathyro id hormone Doris Minor pineda, [facility] 5 15:20:01 History of surgery 284461449 Active low back, no rods Deepa Cleary, GAB[address], [place], [address], [facility] 4 12:14:50 Notes:history back surgery Problem Notes None recorded. Procedures Surgical History Date Name Laterality Status Provider Name and Address Organization Details Recorded Time 05/02/20 24 Colposcopy completed BELIA BELLAMY MD [address], [place], [address], [facility] 05/02/2024 14:29:30 05/02/20 24 [facility]24 19:53:36 05/02/20 24 [facility] 05/02/2024 19:54:27 03/26/20 24 Date of Last Pap Smear completed Kasiamichela Goff [facility] 03/26/2024 16:28:22 11/19/19 22 procedure on back completed Kasiamichela Goff [facility] 03/26/2024 16:30:10 07/20/19 22 Bariatric Surgery completed Kasiamichela Goff [facility] 03/26/2024 16:18:49 Imaging Results Imaging Date Name Status LastModified by Organization Details LastModified Time 04/30/2024 US, obstetric, nuchal translucency completed [email or web address] [place] [address], [place], [address], 04/30/2024 16:23:18 04/30/2024 US, obstetric, 1st trimester completed [email or web address] [place] [address], [place], [address], 04/30/2024 16:23:26 04/30/2024 US, obstetric, nuchal translucency completed [email or web address] [address], [place], [address], 04/30/2024 22:14:25 06/11/2024 US, obstetric, follow-up completed [email or web address] [address], [place], [address], 06/16/2024 19:29:30 06/11/2024 US, obstetric, follow-up completed [address] [facility] [place] [address] [facility] [place], [address], 06/24/2024 22:25:46 07/07/2024 US, obstetric, follow-up completed [facility] [address] [place], [address], 07/11/2024 00:03:29 07/07/2024 US, obstetric, follow-up active [address] [facility] [address] [place], [address], 07/23/2024 14:29:46 07/07/2024 US, obstetric, follow-up completed [facility] [address], [place], [address], 07/10/2024 23:45:49 07/07/2024 US, obstetric, follow-up completed [facility] [address], [place], [address], 07/10/2024 23:46:49 07/07/2024 US, obstetric, follow-up completed [email or web address] [facility] [address] [place], [address], 07/10/2024 23:48:37 Procedure Notes None recorded. Medical Equipment None Reported. Allergies No known drug allergies Medications Name Sig Start Date Stop Date Status Note LastModified by Organization Details LastModified Time doxycycline hyclate 100 mg capsule TAKE 1 CAPSULE BY MOUTH EVERY 12 HOURS FOR 7 DAYS 03/26 completed Not Available Not Available Not Available fluconazole 150 mg tablet TAKE 1 TABLET BY MOUTH ONCE. MAY TAKE 2ND PILL 2 DAYS LATER IF SYMPTOMS PERSIST 03/26 completed Not Available Not Available Not Available metronidazo le 500 mg tablet TAKE 1 TABLET BY MOUTH TWICE A DAY DO NOT CONSUME ALCOHOL WHILE TAKING THIS PRODUCT 03/26 completed Not Available Not Available Not Available doxycycline hyclate 100 mg tablet TAKE 1 TABLET BY MOUTH TWICE A DAY FOR 7 DAYS 03/26 completed Not Available Not Available Not Available azithromyci n 500 mg tablet TAKE 2 TABLETS BY MOUTH ONE TIME 03/26 completed Not Available Not Available Not Available nitrofurant oin monohydrate /macrocryst als 100 mg capsule TAKE 1 CAPSULE BY MOUTH EVERY 12 HOURS FOR 5 DAYS. TAKE WITH MEAL/FOOD 03/26 completed Not Available Not Available Not Available Vitals Date Recorded Body height Body mass index (BMI) Body weight Body weight Systolic blood pressure Diastolic blood pressure Systolic blood pressure Diastolic blood pressure Provider Name and Address Organization Details Last Updated DateTime 160.02 cm 28.7 kg/m2 83032.9 6 g 47597.9 6394 g 118 mm[Hg] 78 mm[Hg] 118 mm[Hg] 78 mm[Hg] Kasia Goff [facility] 12:08:31 Date Recorded Body height Body mass index (BMI) Body weight Systolic blood pressure Diastolic blood pressure Provider Name and Address Organization Details Last Updated DateTime 05/02/2024 160.02 cm 28.5 kg/m2 27974.37 g 118 mm[Hg] 73 mm[Hg] Larias Durant [facility] 4 13:59:39 Date Recorded Body height Body mass index (BMI) Body weight Systolic blood pressure Diastolic blood pressure Provider Name and Address Organization Details Last Updated DateTime 06/03/2024 160.02 cm 29.8 kg/m2 86761.95 5108 g 126 mm[Hg] 76 mm[Hg] ARI Serrano [facility] 5 17:28:22 Date Recorded Body height Body mass index (BMI) Body weight Systolic blood pressure Diastolic blood pressure Provider Name and Address Organization Details Last Updated DateTime 06/25/2024 160.02 cm 31.2 kg/m2 12763.25 712 g 121 mm[Hg] 75 mm[Hg] Kasia Goff [facility] 5 16:24:10 Date Recorded Body height Body mass index (BMI) Body weight Systolic blood pressure Diastolic blood pressure Provider Name and Address Organization Details Last Updated DateTime 07/25/2024 160.02 cm 32.6 kg/m2 35181 g 122 mm[Hg] 78 mm[Hg] Larisa Bhargav [facility] 5 14:57:03 Social History Question Answer Notes LastModified by Organizat ion Details LastModified Time Tobacco Smoking Status Never Smoker Kasia Goff [facility], [facility] 03/26/2024 16:29:51 What Is Your Level Of Alcohol Consumption? None [email or web address] Information not available 03/26/2024 If You Are , What Was Your Level Of Alcohol Consumption Prior To ? Occasional [email or web address] Information not available 03/26/2024 How Many Years Have You Consumed Alcohol? 2 [email or web address] Information not available 03/26/2024 Are You Blind Or Do You Have Difficulty Seeing? No [email or web address] Information not available 03/26/2024 What Is Your Level Of Caffeine Consumption? Moderate [email or web address] Information not available 03/26/2024 How Much Tobacco Do You Chew? None [email or web address] Information not available 03/26/2024 In The 14 Days Before Symptom Onset, Have You Had Close Contact With A Laboratory-confir med COVID-19 While That Case Was Ill? No [email or web address] Information not available 03/26/2024 In The 14 Days Before Symptom Onset, Have You Had Close Contact With A Person Who Is Under Investigation For COVID-19 While That Person Was Ill? No [email or web address] Information not available 03/26/2024 Have You Been To An Area Known To Be High Risk For COVID-19? No [email or web address] Information not available 03/26/2024 Are You Deaf Or Do You Have Serious Difficulty Hearing? No Information not available 03/26/2024 What Type Of Diet Are You Following? REGULAR [email or web address] Information not available 03/26/2024 What Is The Highest Grade Or Level Of School You Have Completed Or The Highest Degree You Have Received? 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 No [email or web address] Information not available 03/26/2024 Do You Use Protection During Sex? No [email or web address] Information not available 03/26/2024 Do You Use Your Seat Belt Or Car Seat Routinely? Yes Information not available 03/26/2024 Are You Sexually Active? Yes [email or web address] Information not available 06/03/2024 Do You Have Smoke And Carbon Monoxide Detectors In Your Home? Yes [email or web address] Information not available 03/26/2024 How Much Tobacco Do You Smoke? No [email or web address] Information not available 03/26/2024 Do You Feel Stressed (tense, Restless, Nervous, Or Anxious, Or Unable To Sleep At Night)? [id number] [email or web address] Information not available 03/26/2024 Do You Use Any Illicit Or Recreational Drugs? No [email or web address] Information not available 03/26/2024 Do You Use Sunscreen Routinely? No [email or web address] Information not available 03/26/2024 Has Tobacco Cessation Counseling Been Provided? No [email or web address] Information not available 03/26/2024 Have You Used IV Drugs? No [email or web address] Information not available 03/26/2024 Do You Or Have You Ever Used Any Other Forms Of Tobacco Or Nicotine? No [email or web address] Information not available 03/26/2024 Sex: Unknown Functional Status Question Answer Note LastModified by Organizat ion Details LastModified Time Do you have difficulty walking or climbing stairs? No Information not available 03/26/2024 Are you able to walk? YESWOREST [email or web address] Information not available 03/26/2024 Are you able to care for yourself? Yes [email or web address] Information not available 03/26/2024 Do you have difficulty dressing or bathing? No [email or web address] Information not available 03/26/2024 What is your exercise level? Moderate [email or web address] Information not available 03/26/2024 Mental Status None recorded. Family History Relationship Description Onset Age of this Age Resolved Age Notes LastModified by Organization Details LastModified Time Unspecified Relation Family history unknown [email or web address] Not available 03/26 16:18:49 Medical History Condition Response Allergies (Food, seasonal, environmental ) N Other N Breast Cancer N Drug/Latex Allergies/Reactions N Blood Transfusion N Dermatologic Disorders N Lung Disease N Defects or Inherited Disease N Breast Problem N Gestational Diabetes N Hematologic disorders N Anesthesia Complications N History of STI N Deep Vein Thrombosis N Polycystic ovary syndrome N Anxiety Disorder N Autoimmune disease N Arthritis N Infertility N Polyps N Acid Reflux (GERD) N History of abnormal pap N Cancer N Stroke N Varicosities N Neurologic/Epilepsy Y Endometriosis N High Cholesterol N Headaches N Fibromyalgia N Kidney Disease N Heart Problems N Kidney or Bladder Problems N Thyroid Problems N GI Problems Y Eating Disorder N Anemia N Art (IVF or FET) N Psychiatric Illness N Ovarian Cancer N Diabetes N Pulmonary (TB, Asthma) N Hepatitis/Liver Disease N No Past Medical History Y Eczema N Urinary Tract Infection N Abuse/Domestic Violence N Asthma N Trauma/Violence N Depression/ depression N Heart Disease N Pre-Eclampsia N Hypertension N Osteoporosis N Thrombophilias N Gynecological History Statement/Question Response Abnormal Pap Y Date of Last Mammogram Date of LMP 02/03/2024 N Was last menstrual period normal Y STIs/STDs Y Colposcopy 05/02/2024 Duration of Flow (days) 6 Current Control Method Date of Last Colonoscopy Frequency of Cycle (Q days) 29 Sexually Active? Y None Date of DEXA bone scan Age of first menstrual cycle 15 Date of Last Pap Smear 03/26/2024 Sexual Problems? N Desired Control Method None LMP Approximate N Obstetrics History GPAL:G 1 P 0 0 0 0 Type Value Living 0 Total 1 Past Encounters Encounter ID Performer Location Encounter Start Date Encounter Closed Date Diagnosis/Indication Diagnosis SNOMED-CT Code Diagnosis ICD10 Code Diagnosis Note [id number] Deisi Zhang [place] [address],[place] [address] 03/26/2024 15:15:28 03/26/2024 16:06:04 [id number] Deepa Cleary [facility] [address],[place] [address] 03/26/2024 15:19:21 03/26/2024 17:09:01 Gynecologic examination 11236157 Z01.419 pap collectedm iralax for constipati ontylenol or excedrin tension okreviewed education and precaution splan new ob and first look in 5 weeks with NIPTreview ed us, subchorion ic hemorrhage [id number] [facility] [address],[place] [address] 04/30/2024 14:50:50 04/30/2024 15:32:37 screening 407972101 Z36.82 Z3A.12 [id number] Kasia Goff [place] [address],[place] [address] 04/30/2024 14:52:47 05/03/2024 07:13:47 Gestation period, 12 weeks 71280706 Z3A.12 Routine an tenatal care 342449551 Z34.90 [id number] BELIA BELLAMY MD [place] [address],[place] [address] 05/02/2024 13:47:26 05/02/2024 14:53:03 Atypical squamous cells of undetermined significance on cervical Papanicolaou smear 473658342 R87.610 - Colposcopy performed, patient tolerated well- recommend repeat pap Human gunjan llomavirus deoxyribonucleic acid detected, high risk on cervical specimen 905755255 R87.810 [id number] BELIA BELLAMY MD [place] [address],[place] [address] 06/03/2024 17:18:29 06/03/2024 18:14:12 History of bariatric surgical procedure 797179220 Z98.84 - MFM referral sent, scheduled Gestation period, 17 weeks 22911395 Z3A.17 - continue PNV [id number] Deepa Cleary CNM [place] [address] [address] 06/25/2024 15:46:02 06/25/2024 16:36:40 Gestation period, 20 weeks 22295493 Z3A.20 continue vitamin [id number] BELIA BELLAMY MD [place] [address] [address] 07/25/2024 14:49:13 07/25/2024 15:19:30 History of bariatric surgical procedure 822405204 Z98.84 - MFM referral completed- repeat growth at 32 weeks- glucose check supplies sent out Gestation period, 24 weeks 823301777 Z3A.24 - continue pNV Health Concerns Section Related Observation LastModified by Organization Detai ls LastModified Time None Recorded Concern Status LastModified by Organization Details LastModified Time None Recorded Advance Directives Directive None Recorded Payers Encounter Date Sequence Insurance Name Policy Number Policy Renae Covered Member ID Renae Member ID Guarantor Name 04/30/2024 1 *SELF PAY* Scott Baum 05/02/2024 1 *SELF PAY* Scott Baum 06/03/2024 1 [place] OF PUBLIC AID Vania Baum [id number] Pat Baum 06/25/2024 1 [facility] - DOS ON OR AFTER 20 (MEDICAID REPLACEMENT - HMO) Pat Baum [id number] Pat Baum 07/25/2024 1 [facility] - DOS ON OR AFTER 20 (MEDICAID REPLACEMENT - HMO) Pat Baum [id number] Pat Baum Notes Date Note Type Note Provider Name and Address Organization Details Recorded Time 05/02/2024 text/html Patient presents for colposcopy, indicated for ASCUS +HPV pap. BELIA BELLAMY MD [address], [place], [address], [facility] 05/02/2024 14:41:20 OBGyn Episode Ob Episode Information Episode Created Date Number of Fetuses Patient Bloodtype Patient rh Status Prepregnancy Weight lbs Domestic Partner Domestic Partner Phone Father Name Automobile Designer Status 05/02/20 24 1 O Positive OPEN Fetus Data First Name Last Name Admitted to NICU Weight (g) Sex Living Outcome Pediatric Complications Fetus ID Race Codes Race Delivery Type [id number] Problems Problem Notes Low vit D & A otcRepeat CMP 1wkschedule 32wk us no further us with [facility] Problem Name Start Date End Date Resolution Snomed Code Not e History of surgery [id number] l ow back, no rods History of bariatric surgical procedure [id number] check lab s M [facility] referral faxed 05/08 [place] location scheduled 06/11/24 145 Level II US and OV 07/07 945 for USChecking BS QID Anesthesiology consult in 3rd trimest -schedule with pre -admit appt Monitor labs per [facility] CMP/ lipid panel , Anemia panel , parathyroid hormone Atypical squamous cells of undetermined significance [id number] +HPV, colpo taurus eduled Richard Calculation Initial Richard Date Initial Exam Date Initial Exam Provider Initial Ultrasound Date Last Menstrual Period Date Ultra Sound Weeks Gestation 11/09/2024 03/26/2024 03/26/2024 02/03/2024 7 Eighteen To Twenty Week Richard Update Ultra Sound Date Fundal Height At Umbil Quickening Date Ultra Sound Latest Weeks Gestation Final Richard Confirmed By Final Richard Confirmed Date Final Richard Date Ultra Sound Latest Days Gestation 0 0 Pre- Flowsheet Flowsheet Date 04/30/2024 Mcallister Score Blood Edema Fundus Height Fundus Units Glucose Ketones Leukocytes Nitrite Labor Signs Protein Cervic Dilation Cervic Effacement Cervic Station neg none none trace Type Weight in lbs Pre/Post Dialysis Refused 162.015605675798 BP Diastolic BP Location Tested BP Systolic BP Type 78 118 Fetus Heart Rate Present Fetus Movement A No Comments Patient is having dizziness, lightheaded, headache, pain, cramping, discharge and nausea. precautions and education reviewed abnl pap, hx bariatric surgery plan to add additional labs today begin routine care Flowsheet Date 05/02/2024 Mcallister Score Blood Edema Fundus Height Fundus Units Glucose Ketones Leukocytes Nitrite Labor Signs Protein Cervic Dilation Cervic Effacement Cervic Station Type Weight in lbs Pre/Post Dialysis Refused Weight 161.188796575295 BP Diastolic BP Location Tested BP Systolic BP Type 73 L arm 118 sitting Fetus Heart Rate Present Fetus Movement Comments Colposcopy, see procedure no te. Flowsheet Date 06/03/2024 Mcallister Score Blood Edema Fundus Height Fundus Units Glucose Ketones Leukocytes Nitrite Labor Signs Protein Cervic Dilation Cervic Effacement Cervic Station neg trace Type Weight in lbs Pre/Post Dialysis Refused 168.857380799672 BP Diastolic BP Location Tested BP Systolic BP Type 76 L arm 126 sitting Fetus Heart Rate Present Fetus Movement A Increased Comments Doing well, no cramping or b leeding. Was recently treated for pneumonia, now improved. Having a boy! Seeing MFM for hx of bariatric surgery. Discussed anatomy US with MFM most likely. Overall feeling better. RTC 4 weeks. Flowsheet Date 06/25/2024 Mcallister Score Blood Edema Fundus Height Fundus Units Glucose Ketones Leukocytes Nitrite Labor Signs Protein Cervic Dilation Cervic Effacement Cervic Station neg none Type Weight in lbs Pre/Post Dialysis Refused 176.218291019170 BP Diastolic BP Location Tested BP Systolic BP Type 75 121 Fetus Heart Rate Present A 130 Present Fetus Movement A Yes Comments Patient states that is havin g some nausea. plan rpt labs today, sees mfm in 2 weeks, occasional movement, looking for a magnetic prospector f/u here in 4 weeks Flowsheet Date 07/25/2024 Mcallister Score Blood Edema Fundus Height Fundus Units Glucose Ketones Leukocytes Nitrite Labor Signs Protein Cervic Dilation Cervic Effacement Cervic Station neg none Type Weight in lbs Pre/Post Dialysis Refused Weight 184.852812087707 BP Diastolic BP Location Tested BP Systolic BP Type 78 L arm 122 sitting Fetus Heart Rate Present A 140 Fetus Movement A Yes Comments Patient c/o slight nausea. G ood movement, no cramping or bleeding. Last growth US with MFM 2 weeks ago, EFW 88%, breech. Recommend repeat growth with [facility] at 32 weeks. Discussed finger sticks and labs for next visit. Menstrual History Last Menstrual Date Menses Monthly On Bcp Conception Prior Menses Frequency Hcg Plus Date Menarche Onset Age 0902/03/20[birth year] Delivery Information Delivery Date Delivery Type Labor Anesthesia Weeks Gestation Incision Type Labor Labor Length Hrs Delivered By Post Complications Tubal Sterilization Discharge Date Comments Discharge Information Feeding Method Contraceptive Method Maternal HG B and HCT Levels
--- OUTSIDE RECORDS SUMMARY | 2024-07-30 17:37 | XMS_ITS | Referral Summary ---
Author Organization [facility] Address [address] [place] [address] Care Team Providers Care Paper Roll Machine Operator Name Role Phone Arleth Kyle MD Primary Care Provider [phone] Source Comments [facility],non-owned Affiliates and Associated Physician Practices is amultiple site organization consisting of ambulatory clinics and hospital sitesin [place], [place], [place] and [place]. This disclosure is being madepursuant to the Care Everywhere program and may not contain all information available regarding this patient. Last updated 18.[facility] Encounters Date Type Department Care Team Description 07/07/2024 9:39 AM JOB PLACEMENT SPECIALIST - 07/07/2024 11:59 PM JOB PLACEMENT SPECIALIST [facility] [address] [place] [address] Head, Emily Tellez MD Discharge Disposition: Home or Self Care 06/11/2024 1:46 PM JOB PLACEMENT SPECIALIST - 06/11/2024 11:59 PM JOB PLACEMENT SPECIALIST Hospital Encounter [facility] [address] [place] [address] Juan C Lang MD Discharge Disposition: Home or Self Care 06/11/2024 1:39 PM JOB PLACEMENT SPECIALIST - 06/11/2024 1:45 PM JOB PLACEMENT SPECIALIST Hospital Encounter [facility] [address] [place], [place] [id number] Juan C Lang MD Discharge Disposition: Home [...] daily Patient takes 2400 mcg of the [place]oodle brand vitamin A. Active Social History Tobacco [...] Comments Blood Pressure 117/54 06/11/2024 2:42 PM JOB PLACEMENT SPECIALIST Pulse 67 06/11/2024 2:42 PM JOB PLACEMENT SPECIALIST Temperature 36.9 C (98.4 F) 08/25/2011 1:21 AM CDT Respiratory Rate 20 08/25/2011 1:21 AM CDT Oxygen Saturation 100% 08/24/2011 11:45 PM CDT Inhaled Oxygen Concentration - - Weight 78 kg (172 lb) 06/11/2024 2:42 PM JOB PLACEMENT SPECIALIST Height 160 cm (5' 3 ) 06/11/2024 2:58 PM JOB PLACEMENT SPECIALIST Body Mass Index 30.47 06/11/2024 2:42 PM JOB PLACEMENT SPECIALIST Plan of Treatment Not on file Procedures Procedure Name Priority Date/Time Associated Diagnosis Comments SONOGRAM - COMPLETE Routine 07/07/2024 9 :34 AM JOB PLACEMENT SPECIALIST Hx of bariatric surgery 22 weeks gestation of (HCC) Encounter for follow-up ultrasound of anatomy ([facility]) SONOGRAM - COMPLETE Routine 06/11/2024 1 :49 PM JOB PLACEMENT SPECIALIST Encounter for anatomic survey ([facility]) Hx of bariatric surgery 18 weeks gestation of ([facility]) from Last 3 Months Results * SONOGRAM - COMPLETE (07/07/2024 9:34 AM JOB PLACEMENT SPECIALIST) Only the most recent of2 resultswithin the [...] 1 lb 4 oz EFW by Hadlock ([id number]-OD-UM-FL) appropriate Growth Overview Exam date GA BPD (mm) HC (mm) AC (mm) FL (mm) HL (mm) EFW (g) 06/11/2024 18w 3d 44.7 89% 163.1 74% 143.1 84% 26.8 34% 27.5 69% 268 77% 07/07/2024 22w 1d 56.9 88% 205.1 58% 186.2 81% 40.1 67% 39.1 93% 568 88% Anatomy The following structures appear normal: Heart / Thorax 4-chamber view. 4-zxshdc-swoiksv view. Aortic arch view. Bicaval view. Diaphragm. [...] growth assessment is recommended Coding ====== Procedures [id number]: US Preg Uterus Follow Up [facility] PACS Anatomical Region Laterality Modality Other 07/07/2024 9:34 AM JOB PLACEMENT SPECIALIST R Mateusz Jacobson MD [facility] ORDERABLES from Last 3 Months Care Teams Paper Roll Machine Operator Relationship Specialty Start Date End Date Arleth Kyle MD [address] [place] [id number] PCP - General 02/01/11
--- OUTSIDE RECORDS SUMMARY | 2024-07-30 17:37 | XMS_ITS | Clinical Summary ---
Author Organization [facility] Address [address] [place] [address] Care Team Providers Care Senior Sustainability Advisor Name Role Phone Arleth Kyle MD Primary Care Provider [phone] [facility],non-owned Affiliates and Associated Physician Practices is amultiple site organization consisting of ambulatory clinics and hospital sitesin [place], [place], [place] and [place]. This disclosure is being madepursuant to the Care Everywhere program and may not contain all information available regarding this patient. Last updated 18.[facility] Allergies No known active allergies Medications * [...] daily Patient takes 2400 mcg of the Hanna brand vitamin A. Active Encounters Date Type Department Care Team Description 07/07/2024 9:39 AM AUTOMOTIVE SERVICE DIRECTOR - 07/07/2024 11:59 PM AUTOMOTIVE SERVICE DIRECTOR Hospital Encounter [facility] [address] [place] [address] Head, Emily Tellez MD Discharge Disposition: Home or Self Care 06/11/2024 1:46 PM AUTOMOTIVE SERVICE DIRECTOR - 06/11/2024 11:59 PM AUTOMOTIVE SERVICE DIRECTOR Hospital Encounter [facility] [address] [place] [id number] Juan C Lang MD Discharge Disposition: Home or Self Care 06/11/2024 1:39 PM AUTOMOTIVE SERVICE DIRECTOR - 06/11/2024 1:45 PM AUTOMOTIVE SERVICE DIRECTOR Hospital Encounter [facility] [address] [place] [address] Juan C Lang MD Discharge Disposition: Home [...] Comments Blood Pressure 117/54 06/11/2024 2:42 PM AUTOMOTIVE SERVICE DIRECTOR Pulse 67 06/11/2024 2:42 PM AUTOMOTIVE SERVICE DIRECTOR Temperature 36.9 C (98.4 F) 08/25/2011 1:21 AM CDT Respiratory Rate 20 08/25/2011 1:21 AM CDT Oxygen Saturation 100% 08/24/2011 11:45 PM CDT Inhaled Oxygen Concentration - - Weight 78 kg (172 lb) 06/11/2024 2:42 PM AUTOMOTIVE SERVICE DIRECTOR Height 160 cm (5' 3 ) 06/11/2024 2:58 PM AUTOMOTIVE SERVICE DIRECTOR Body Mass Index 30.47 06/11/2024 2:42 PM AUTOMOTIVE SERVICE DIRECTOR Plan of Treatment Health Maintenance Due Date [...] - COMPLETE Routine 07/07/2024 9 :34 AM AUTOMOTIVE SERVICE DIRECTOR Hx of bariatric surgery 22 weeks gestation of (HCC) Encounter for follow-up ultrasound of anatomy (HCC) SONOGRAM - COMPLETE Routine 06/11/2024 1 :49 PM AUTOMOTIVE SERVICE DIRECTOR Encounter for anatomic survey (HCC) Hx of bariatric surgery 18 weeks gestation of (HCC) from Last 3 Months Results * SONOGRAM - COMPLETE (07/07/2024 9:34 AM AUTOMOTIVE SERVICE DIRECTOR) Only the most recent of2 resultswithin the [...] 1 lb 4 oz EFW by Hadlock (FIV-NS-EC-FL) appropriate Growth Overview Exam date GA BPD (mm) HC (mm) AC (mm) FL (mm) HL (mm) EFW (g) 06/11/2024 18w 3d 44.7 89% 163.1 74% 143.1 84% 26.8 34% 27.5 69% 268 77% 07/07/2024 22w 1d 56.9 88% 205.1 58% 186.2 81% 40.1 67% 39.1 93% 568 88% Anatomy The following structures appear normal: Heart / Thorax 4-chamber view. 9-uwdnhy-nveooox view. Aortic arch view. Bicaval view. Diaphragm. [...] growth assessment is recommended Coding ====== Procedures [id number]: US Preg Uterus Follow Up [employer] PACS Anatomical Region Laterality Modality Other 07/07/2024 9:34 AM AUTOMOTIVE SERVICE DIRECTOR R Mateusz Jacobson MD [facility] ORDERABLES from Last 3 Months Care Teams Senior Sustainability Advisor Relationship Specialty Start Date End Date Arleth Kyle MD [address] [place] [address] PCP - General 02/01/11
--- OUTSIDE RECORDS SUMMARY | 2024-07-30 17:37 | XMS_ITS | Patient Health Summary ---
Author Organization [facility] Address [address] [place] [address] Care Team Providers Care Shoe Repairer Name Role Phone Arleth Kyle MD Primary Care Provider [phone] [facility],non-owned Affiliates and Associated Physician Practices is amultiple site organization consisting of ambulatory clinics and hospital sitesin [place], [place], [place] and [place]. This disclosure is being madepursuant to the Care Everywhere program and may not contain all information available regarding this patient. Last updated 18.[facility] Allergies No known active allergies Medications * [...] daily Patient takes 2400 mcg of the [place] brand vitamin A. Social History Tobacco Use [...] Comments Blood Pressure 117/54 06/11/2024 2:42 PM GASFITTER Pulse 67 06/11/2024 2:42 PM GASFITTER Temperature 36.9 C (98.4 F) 08/25/2011 1:21 AM CDT Respiratory Rate 20 08/25/2011 1:21 AM CDT Oxygen Saturation 100% 08/24/2011 11:45 PM CDT Inhaled Oxygen Concentration - - Weight 78 kg (172 lb) 06/11/2024 2:42 PM GASFITTER Height 160 cm (5' 3 ) 06/11/2024 2:58 PM GASFITTER Body Mass Index 30.47 06/11/2024 2:42 PM GASFITTER Procedures * SONOGRAM - COMPLETE(Performed 07/07/2024) Performed for Hx of bariatric surgery, 22 weeks gestation of ([facility]), Encounter for follow-up ultrasound of anatomy ([facility]) * SONOGRAM - COMPLETE(Performed 06/11/2024) Performed for Encounter for anatomic survey ([facility]), Hx of bariatric surgery, 18 weeks gestation of ([facility]) * PATHOLOGY/CYTOLOGY REPORT ORDER(Performed 04/07/2011) * XR [...] * SONOGRAM - COMPLETE (07/07/2024 9:34 AM GASFITTER) Only the most recent of2 resultswithin the [...] 1 lb 4 oz EFW by Hadlock ([id number]-FL) appropriate Growth Overview Exam date GA BPD (mm) HC (mm) AC (mm) FL (mm) HL (mm) EFW (g) 06/11/2024 18w 3d 44.7 89% 163.1 74% 143.1 84% 26.8 34% 27.5 69% 268 77% 07/07/2024 22w 1d 56.9 88% 205.1 58% 186.2 81% 40.1 67% 39.1 93% 568 88% Anatomy The following structures appear normal: Heart / Thorax 4-chamber view. 1-rqlyov-uyqjnvm view. Aortic arch view. Bicaval view. Diaphragm. [...] growth assessment is recommended Coding ====== Procedures [id number]: US Preg Uterus Follow Up [facility] PACS Anatomical Region Laterality Modality Other 07/07/2024 9:34 AM GASFITTER R Mateusz Jacobson MD [facility] ORDERABLES * PATHOLOGY/CYTOLOGY REPORT ORDER (04/07/2011 12:45 PM GASFITTER) Narrative 04/07/2011 12:45 PM GASFITTER A scan was deleted from the Results section by S Interface [[id number]] on 04/07/2011 at 12:45 PM (File: [id number]) Transcriptions Document, Scanned - 04/07/2011 12:45 PM CST Scanned Document LAB - PATHOLOGY/CYTO LOGY ORDERABLES * XR FOOT 2 VW LEFT (03/31/2011 9:12 AM GASFITTER) Anatomical Region Laterality Modality Ankle / Foot Radio Fluoroscop y 03/31/2011 9:20 AM GASFITTER Impressions 03/31/2011 11:01 AM GASFITTER Impression Tiny radiopacity between first and second metatarsals not seen. D: Malick Aguilar MD. Narrative 03/31/2011 11:01 AM GASFITTER Exam: Left foot, 2 views Exam Date: [...] GROSS + MICRO EXAM (03/31/2011 8:45 AM GASFITTER) [facility] Clinical History [facility] Comment: The patient is a 10-year-old girl who underwent removal of a foreign body from the left foot. Gross Description [facility] Comment: Submitted fresh in one container for gross and microscopic examination labeled with the patient's name, Pat Baum, and left foot tissue are three fragments of yellow-orange adipose tissue with an aggregate measurement of 1.7 x 1.5 x 0.3 cm. The specimen is submitted in toto as A . (CT/ld) Microscopic Examination [facility] Comment: 1 H+E. Sections show unremarkable fibroadipose tissue. (LH/lw) Diagnosis [facility] Comment: DIAGNOSIS: SOFT TISSUE, LEFT FOOT, EXCISION: -FIBROADIPOSE TISSUE. This case has been personally reviewed and interpreted by the attending (teaching) pathologist. Striper Machine SON GILES, [facility] Resident in Pathology Ree Shen M.D. [facility] Pathologist Casa Mauro M.D. [facility] Electronically Signed By CASA MAURO, [facility] TISSUE SPECIMEN / Unknown 03/31/2011 8:45 AM GASFITTER 03/31/2011 10:32 AM GASFITTER Pam Ford MD LAB - PATHOLOGY/C YTOLOGY ORDERABLES [facility] [address] [place] [address] * MRI LOWER EXT NON JOINT NON [...] are normal in signal characteristics. Procedure Note Juan M Moseley A - 03/21/2011 MRI left lower [...] Abbasi MD DIAGNOSTIC IMAGING ORDERABLES Care Teams Shoe Repairer Relationship Specialty Start Date End Date Arleth Kyle MD [address] [place] [id number] PCP - General 02/01/11
== END 2024-07-30 17:29 | disposition home or self-care (01) ==
PROVIDERS: Emergency Provider Emergency Medicine
DX: O99.512 Diseases of the respiratory system complicating pregnancy, second trimester (principal); J11.1 Influenza due to unidentified influenza virus with other respiratory manifestations; Z20.822 Contact with and (suspected) exposure to COVID-19; Z3A.25 25 weeks gestation of pregnancy
CPT/HCPCS: 36415; 80053; 81001; 83690; 85025; 87637; 96361; 96374; 99284; J2405; J7030

== ENCOUNTER 2024-08-15 10:25 | Emergency (ER) | payer OTHER, SELFPAY ==
--- NOTE | ~2024-08-15 | XR_ITS ---
EXAMINATION: XR chest 2V DATE: 08/15/2024 10:51 INDICATION: Chest pain. TECHNIQUE: Frontal and lateral views of the chest were obtained. COMPARISON: Chest single view 05/06/2024 FINDINGS: There is no pneumonia, pleural effusion, or pneumothorax. The heart size is normal. IMPRESSION: 1. No acute cardiopulmonary disease. Reviewed, dictated and finalized at location A.
--- NOTE | 2024-08-15 10:26 | ECG_ITS ---
Test Date: 2024-08-15 10:41:00 Measurements Intervals [employer] Rate: 98 P: 50 NV: 125 QRS: 25 QRSD: 72 T: 24 QT: 341 QTc: 436 Interpretive Statements SINUS RHYTHM No previous ECG available for comparison Electronically Signed On 08-15-2024 11:08:06 CDT by Summer Jose M.D.
[2024-08-15 10:49] VITALS: BP 92/64; PULSE 120; RESP 18; TEMP 36.4; O2SAT 99
[2024-08-15 10:51] LABS: Hematocrit 39.2 % (37.0-47.0); Hemoglobin 12.8 g/dL (12.0-15.0); Mean Corpuscular HGB Conc 32.7 g/dl (32-36); Mean Corpuscular Hemoglobin 28.2 pg (26-34); Mean Corpuscular Volume 86.3 fl (80-100); Mean Platelet Volume 9.8 fl (7.4-10.4); Platelet Count Result 282 k/mm3 (150-375); Red Blood Count 4.54 M/mm3 (4.2-5.4); Red Cell Distribution Width 12.2 % (11.5-14.5); White Blood Count 11.9 K/mm3 (4.5-10.0)
[2024-08-15 11:02] LABS: Alanine Aminotransferase 30 U/L (6-35); Albumin Level 3.9 g/dL (3.5-5.1); Alkaline Phosphatase 99 U/L (38-126); Anion Gap 11 mmol/L (4-12); Aspartate Amino Transferase 46 U/L (14-36); Bilirubin,Total 0.3 mg/dL (0.2-1.3); Blood Urea Nitrogen 7 mg/dL (7-17); Calcium 8.6 mg/dL (8.4-10.2); Carbon Dioxide 20 mmol/L (22-30); Chloride 104 mmol/L (98-107); Estimated CRCL calculation 151 ml/min; Estimated Glomerular Filt Rate > 60; Glucose 83 mg/dL (65-110); Lipase 59 U/L (23-300); Potassium 3.7 mmol/L (3.4-5.0); Sodium 135 mmol/L (137-145)
[2024-08-15 11:07] LABS: Partial Thromboplastin Time 30.5 Seconds (22.3-36.8); Prothrombin Time 13.2 Seconds (11.1-14.7)
[2024-08-15 11:13] LABS: Troponin I < 0.012 ng/mL (0.000-0.034)
[2024-08-15 11:17] LABS: Band Neutrophils Percent 6 % (0-6); Lymphocytes Absolute Manual 0.83 K/mm3 (1.1-4.5); Lymphocytes Percent Manual 7 % (18-44); Neutrophils Absolute Manual 10.71 K/mm3 (1.7-7.2); Neutrophils Percent Manual 84 % (46-73); Total Cells Counted 100
--- OUTSIDE RECORDS SUMMARY | 2024-08-15 11:17 | XMS_ITS | Clinical Summary ---
Author Organization [facility] Address [address] [place] [address] Care Team Providers Care Coordinate Measuring Machine Operator Name Role Phone Arleth Kyle MD Primary Care Provider [phone] [facility],non-owned Affiliates and Associated Physician Practices is amultiple site organization consisting of ambulatory clinics and hospital sitesin [place], [place], [place] and [place]. This disclosure is being madepursuant to the [...] daily Patient takes 2400 mcg of the [place] brand vitamin A. Active Encounters Date Type Department Care Team Description 07/07/2024 9:39 AM TUBE DEPATCHER - 07/07/2024 11:59 PM TUBE DEPATCHER Hospital Encounter Critical access hospital [facility] [address] [place] [address] Head, Emily Tellez MD Discharge Disposition: Home or Self Care 06/11/2024 1:46 PM TUBE DEPATCHER - 06/11/2024 11:59 PM TUBE DEPATCHER Hospital Encounter Critical access [facility] [address] [place] [address] Juan C Lang MD Discharge Disposition: Home or Self Care 06/11/2024 1:39 PM TUBE DEPATCHER - 06/11/2024 1:45 PM TUBE DEPATCHER Hospital Encounter Critical access hospital [facility] [address] [place] [address] Juan C Lang MD Discharge Disposition: Home [...] Comments Blood Pressure 117/54 06/11/2024 2:42 PM TUBE DEPATCHER Pulse 67 06/11/2024 2:42 PM TUBE DEPATCHER Temperature 36.9 C (98.4 F) 08/25/2011 1:21 AM CDT Respiratory Rate 20 08/25/2011 1:21 AM CDT Oxygen Saturation 100% 08/24/2011 11:45 PM CDT Inhaled Oxygen Concentration - - Weight 78 kg (172 lb) 06/11/2024 2:42 PM TUBE DEPATCHER Height 160 cm (5' 3 ) 06/11/2024 2:58 PM TUBE DEPATCHER Body Mass Index 30.47 06/11/2024 2:42 PM TUBE DEPATCHER Plan of Treatment Health Maintenance Due Date Last Done Comments HPV VACCINE (1 - 3-dose series) 12/17/2015 MENINGOCOCCAL (Group B) VACCINE SHARED DECISION-MAKING (1 of 2 - Standard) 2016 HEPATITIS C SCREENING 12/12/2018 DTAP/TDAP/TD VACCINES (1 - Tdap) 12/17/2019 HEPATITIS B VACCINE (1 of 3 - 19+ 3-dose series) 12/17/2019 COVID-19 VACCINE (1 - 2023-2 5 season) 2024 INFLUENZA VACCINE (#1) 2024 8, 07/05/2010, 04/21/2005 DEPRESSION SCREENING 05/21/2024 OB-ONE HOUR GLUCOSE 08/03/2024 OB-TDAP CURRENT 08/10/2024 OB-RHOGAM INJECTION 08/17/2024 CHLAMYDIA/GONORRHEA SCREENING 03/26/2025, 03/26/2024, 03/26/2024 PAP SMEAR 03/26/2027 03/26/2024 ZOSTER VACCINE (1 of 2) 2050 HIV SCREENING Completed 04/30/2024 HIB VACCINE Aged Out No longer eligi [...] - COMPLETE Routine 07/07/2024 9 :34 AM TUBE DEPATCHER Hx of bariatric surgery 22 weeks gestation of Encounter for follow-up ultrasound of anatomy SONOGRAM - COMPLETE Routine 06/11/2024 1 :49 PM TUBE DEPATCHER Encounter for anatomic survey Hx of bariatric surgery 18 weeks gestation of from Last 3 Months Results * SONOGRAM - COMPLETE (07/07/2024 9:34 AM TUBE DEPATCHER) Only the most recent of2 resultswithin the [...] 1 lb 4 oz EFW by Hadlock ([id number]-FL) appropriate Growth Overview Exam date GA BPD (mm) HC (mm) AC (mm) FL (mm) HL (mm) EFW (g) 06/11/2024 18w 3d 44.7 89% 163.1 74% 143.1 84% 26.8 34% 27.5 69% 268 77% 07/07/2024 22w 1d 56.9 88% 205.1 58% 186.2 81% 40.1 67% 39.1 93% 568 88% Anatomy The following structures appear normal: Heart / Thorax 4-chamber view. 0-slgdvv-exrkyhe view. Aortic arch view. Bicaval view. Diaphragm. [...] growth assessment is recommended Coding ====== Procedures [id number]: US Preg Uterus Follow Up [email or web address] PACS Anatomical Region Laterality Modality Other 07/07/2024 9:34 AM TUBE DEPATCHER R Mateusz Jacobson MD [facility] ORDERABLES from Last 3 Months Care Teams Coordinate Measuring Machine Operator Relationship Specialty Start Date End Date Arleth Kyle MD [address] [place] [address] PCP - General 02/01/11
[2024-08-15 11:18] LABS: Basophils Percent Manual 0 % (0-1); Eosinophils Absolute Manual 0.11 K/mm3 (0.02-0.50); Eosinophils Percent Manual 1 % (0-4); Giant Platelets Present; Large Platelets Present; Monocytes Absolute Manual 0.23 K/mm3 (0.1-0.90); Monocytes Percent Manual 2 % (3-9); Platelet Estimate Adequate (Adequate); Schistocytes None Seen
--- OUTSIDE RECORDS SUMMARY | 2024-08-15 11:18 | XMS_ITS | Data Portability ---
Author Organization [facility] [place] Address [address] [place] [place] [address] Assessment Encounter Date Assessment Date Assessment LastModified [...] , nuchal transluce ncy 2023 024 [email or web address] [place], [facility] [address], [place], [address], 04/30/2024 22:38:15 US, obstetric , 1st trimester 2023 024 [email or web address] [place], [facility] [address], [place], [address], 04/30/2024 22:38:15 Medication Orders None recorded. Patient TargetsNo targets recorded. Patient InstructionsNo instructions recorded. Reason for Referral None Reported. Results Created Date Observation Date Name Description Value Unit Range Abnormal Flag Note LastModifiedBy Organization Detail LastModifiedTime 05/07/20 24 05/07/2024 [UNIT Y] ANEUP LOIDY NIPT fraction 11.0% normal Not Available [facility] gar[facility] [address], [place], [address], 05/07/2024 00:23:09 05/07/20 24 05/07/2024 [UNIT Y] ANEUP LOIDY NIPT 22Q11.2 microdeletio n LOW RISK <1 in 10,000 normal Not Available [facility] [address] , [place], [address], 05/07/2024 00:23:09 05/07/20 24 05/07/2024 [UNIT Y] ANEUP LOIDY NIPT sex chromosome aneuploidy NOT DETECT ED normal Not Available [facility] [address] [facility], [place], [address], 05/07/2024 00:23:09 05/07/20 24 05/07/2024 [UNIT Y] ANEUP LOIDY NIPT monosomy X LOW RISK <1 in 10,000 normal Not Available [facility] [address] [facility], [place], [address], 05/07/2024 00:23:09 05/07/20 24 05/07/2024 [UNIT Y] ANEUP LOIDY NIPT trisomy 13 LOW RISK <1 in 10,000 normal Not Available [facility] [address] [facility], [place], [address], 05/07/2024 00:23:09 05/07/20 24 05/07/2024 [UNIT Y] ANEUP LOIDY NIPT trisomy 18 LOW RISK <1 in 10,000 normal Not Available [facility] [address] [facility], [place], [address], 05/07/2024 00:23:09 05/07/20 24 05/07/2024 [UNIT Y] ANEUP LOIDY NIPT trisomy 21 LOW RISK <1 in 10,000 normal Not Available [facility] [address] [facility], [place], [address], 05/07/2024 00:23:09 05/07/20 24 05/07/2024 [UNIT Y] ANEUP LOIDY NIPT sex MALE normal Not Available [facility] [address], [place], [address], 05/07/2024 00:23:09 05/07/20 24 05/07/2024 [UNIT Y] ANEUP LOIDY NIPT gestation SINGLE TON normal Not Available [facility] [address], [place], [address], 05/07/2024 00:23:09 05/07/20 24 05/07/2024 [UNIT Y] ANEUP LOIDY NIPT for detailed report, see pdf See PDF normal Not Available [facility] [address], [place], [address], 05/07/2024 00:23:09 05/11/20 24 05/11/2024 [UNIT Y] SERAFIN Dickson sickle cell disease/beta -thalassemia /hemoglobino pathies carrier screen NEGATI VE normal Not Available [facility] [address], [place], [address], 05/11/2024 13:36:05 05/11/20 24 05/11/2024 [UNIT Y] SERAFIN Dickson alpha-thalas semia carrier screen NEGATI VE normal Not Available [facility] [address], [place], [address], 05/11/2024 13:36:05 05/11/20 24 05/11/2024 [UNIT Y] SERAFIN Dickson cystic fibrosis carrier screen NEGATI VE normal Not Available [facility] [address], [place], [address], 05/11/2024 13:36:05 05/11/20 24 05/11/2024 [UNIT Y] SERAFIN Dickson spinal muscular atrophy carrier screen NEGATI VE 2 SMN1 copies , SNP not presen t normal Not Available [facility] [address], [place], [address], 05/11/2024 13:36:05 05/11/20 24 05/11/2024 [UNIT Y] SERAFIN WALTERS SCREEli Yessi for detailed report, see pdf See PDF normal Not Available [facility] [address], [place], [address], 05/11/2024 13:36:05 04/30/20 24 04/30/2024 CULTU RE: URINE result report SEE RESULT S BELOW Test: Cultu re: Urine Speci men Sourc e: Urine - Clean Catch Speci men Type: Urine Speci men Date: 04/30 1616 Resul t Date: 05/02 0612 Resul t Statu s: Final resul t Abnor mal: No Resul ting Lab: [facility] [address] [facility] [address] Tel: CULTU RE ----- ----- ----- --- No growt h in 1 day (dete ction level of 10,00 0 colon ies / ml.) Not Available [facility] (Lab) [address], [place], [address], 05/02/2024 07:18:27 04/30/20 24 04/30/2024 CBC W/DIF F WBC 10.9 10'3/ uL 3.5-10 [address] [facility] (Lab) [address], [place], [address], 05/06/2024 18:32:11 04/30/20 24 04/30/2024 CBC W/DIF F RBC 4.32 10'6/ uL (based on docume nted legal sex) 3.80-[address] [facility] (Lab) [address], [place], [address], 05/06/2024 18:32:11 04/30/20 24 04/30/2024 CBC W/DIF F HGB 12.6 g/dL (based on docume nted legal sex) 11.6-[address] [facility] (Lab) [address] [place], [address], 05/06/2024 18:32:11 04/30/20 24 04/30/2024 CBC W/DIF F HCT 37.7 % (based on docume nted legal sex) 34.0-[address] [facility] (Lab) [address], [place], [address], 05/06/2024 18:32:11 04/30/20 24 04/30/2024 CBC W/DIF F MCV 87.3 fL 80.0-[address] [facility] (Lab) [address], [place], [address], 05/06/2024 18:32:11 04/30/20 24 04/30/2024 CBC W/DIF F MCH 29.2 pg 27.0-[address] [facility] (Lab) [address], [place], [address], 05/06/2024 18:32:11 04/30/20 24 04/30/2024 CBC W/DIF F MCHC 33.4 g/dL 32.0-[address] [facility] (Lab) [address], [place], [address], 05/06/2024 18:32:11 04/30/20 24 04/30/2024 CBC W/DIF F RDW 11.9 % 11.0-[address] [facility] (Lab) [address], [place], [address], 05/06/2024 18:32:11 04/30/20 24 04/30/2024 CBC W/DIF F plt 266 10'3/ uL 150-[address] [facility] (Lab) [address], [place], [address], 05/06/2024 18:32:11 04/30/20 24 04/30/2024 CBC W/DIF F MPV 10.7 fL 8.8-[address] [facility] (Lab) [address] [address], [place], [address], 05/06/2024 18:32:11 04/30/20 24 04/30/2024 CBC W/DIF F NRBC's 0.0 % 0.[address] [facility] (Lab) [address], [place], [address], 05/06/2024 18:32:11 04/30/20 24 04/30/2024 CBC W/DIF F absolute NRBCs 0.0 10'3/ uL no refere nce range establ ished Not Available [facility] (Lab) [address], [place], [address], 05/06/2024 18:32:11 04/30/20 24 04/30/2024 CBC W/DIF F neutrophils 76.6 % 34.0-7 3.[address] [facility] (Lab) [address], [place], [address], 05/06/2024 18:32:11 04/30/20 24 04/30/2024 CBC W/DIF F lymphocytes 15.2 % 15.0-[address] [facility] (Lab) [address], [place], [address], 05/06/2024 18:32:11 04/30/20 24 04/30/2024 CBC W/DIF F monocytes 5.3 % 1.0-[address] [facility] (Lab) [address], [place], [address], 05/06/2024 18:32:11 04/30/20 24 04/30/2024 CBC W/DIF F eosinophils 2.3 % 0.0-8. [address] [facility] (Lab) [address], [place], [address], 05/06/2024 18:32:11 04/30/20 24 04/30/2024 CBC W/DIF F basophils 0.2 % 0.0-2. [address] [facility] (Lab) [address], [place], [address], 05/06/2024 18:32:11 04/30/20 24 04/30/2024 CBC W/DIF F immature granulocytes 0.4 % no define d refere nce range Not Available [facility] (Lab) [address], [place], [address], 05/06/2024 18:32:11 04/30/20 24 04/30/2024 CBC W/DIF F absolute neutrophils 8.4 10'3/ uL 1.5-8. [address] [facility] (Lab) [address], [place], [address], 05/06/2024 18:32:11 04/30/20 24 04/30/2024 CBC W/DIF F absolute lymphocytes 1.7 10'3/ uL 1.0-4. [address] [facility] (Lab) [address], [place], [address], 05/06/2024 18:32:11 04/30/20 24 04/30/2024 CBC W/DIF F absolute monocytes 0.6 10'3/ uL 0.2-1. [address] [facility] (Lab) [address], [place], [address], 05/06/2024 18:32:11 04/30/20 24 04/30/2024 CBC W/DIF F absolute eosinophils 0.3 10'3/ uL 0.0-0. [address] [facility] (Lab) [address], [place], [address], 05/06/2024 18:32:11 04/30/20 24 04/30/2024 CBC W/DIF F absolute basophils 0.0 10'3/ uL 0.0-0. [address] [facility] (Lab) [address] [place], [address], 05/06/2024 18:32:11 04/30/20 24 04/30/2024 CBC W/DIF [...] resul ts are expec esa. Not Available [facility] (Lab) [address], [place], [address], 05/06/2024 18:32:11 04/30/20 24 04/30/2024 HEPAT ITIS B SURFA CE ANTIG EN hepatitis B surface antigen Non-re active non-re active This assay was perfo rmed using [employer] n reage nts and test kits. Value s obtai medina with other assay metho ds or kits canno t be used inter schulte eably . Not Available [facility] (Lab) [address], [place], [address], 05/06/2024 18:32:11 04/30/20 24 04/30/2024 HEPAT ITIS C ANTIB MILI SCREE N, REFLE X TO CONFI RMATI ON hepatitis C antibody Non-re active non-re active Antib odies to HCV Not Detec esa, does not exclu de the possi bilit y of expos ure to HCV. Not Available [facility] (Lab) [address], [place], [address], 05/06/2024 18:32:12 04/30/20 24 04/30/2024 HIV 1/2 ANTIG EN/AN TIBOD Y, REFLE X CONFI RMATI ON HIV antigen/anti body Nonrea ctive nonrea ctive HIV-1 antig en and HIV-1 /HIV- 2 antib odies were not detec esa. No labor atory evide nce of HIV infec tion. Not Available [facility] (Lab) [address], [place], [address], 05/06/2024 18:32:12 04/30/20 24 04/30/2024 CMP(C OMPRE HENSI VE METAB OLIC PANEL ) sodium 137 mmol/ L 133-[address] [facility] (Lab) [address], [place], [address], 05/06/2024 18:32:13 04/30/20 24 04/30/2024 CMP(C OMPRE HENSI VE METAB OLIC PANEL ) potassium 3.7 mmol/ L 3.5-5. [address] [facility] (Lab) [address], [place], [address], 05/06/2024 18:32:13 04/30/20 24 04/30/2024 CMP(C OMPRE HENSI VE METAB OLIC PANEL ) chloride 104 mmol/ L 98-[address] [facility] (Lab) [address], [place], [address], 05/06/2024 18:32:13 04/30/20 24 04/30/2024 CMP(C OMPRE HENSI VE METAB OLIC PANEL ) carbon dioxide 25 mmol/ L 21-[address] [facility] (Lab) [address], [place], [address], 05/06/2024 18:32:13 04/30/20 24 04/30/2024 CMP(C OMPRE HENSI VE METAB OLIC PANEL ) anion gap 8 mmol/ L 4-[address] [facility] (Lab) [address], [place], [address], 05/06/2024 18:32:13 04/30/20 24 04/30/2024 CMP(C OMPRE HENSI VE METAB OLIC PANEL ) blood urea nitrogen 4 mg/dL 7-25 low Not Available [facility] (Lab) [address], [place], [address], 05/06/2024 18:32:13 04/30/20 24 04/30/2024 CMP(C OMPRE HENSI VE METAB OLIC PANEL ) creatinine 0.51 mg/dL 0.60-1 [address] [facility] (Lab) [address], [place], [address], 05/06/2024 18:32:13 04/30/20 24 04/30/2024 CMP(C OMPRE HENSI VE METAB OLIC PANEL ) egfrcr (CKD-epi 2020) >90 mL/mi n/1.7 3_m2 >=[address] [facility] (Lab) [address], [place], [address], 05/06/2024 18:32:13 04/30/20 24 04/30/2024 CMP(C OMPRE HENSI VE METAB OLIC PANEL ) calcium 9.2 mg/dL 8.3-[address] [facility] (Lab) [address], [place], [address], 05/06/2024 18:32:13 04/30/20 24 04/30/2024 CMP(C OMPRE HENSI VE METAB OLIC PANEL ) glucose 65 mg/dL 70-[address] [facility] (Lab) [address], [place], [address], 05/06/2024 18:32:13 04/30/20 24 04/30/2024 CMP(C OMPRE HENSI VE METAB OLIC PANEL ) protein, total 6.5 g/dL 6.4-8. [address] [facility] (Lab) [address], [place], [address], 05/06/2024 18:32:13 04/30/20 24 04/30/2024 CMP(C OMPRE HENSI VE METAB OLIC PANEL ) albumin 4.2 g/dL 3.5-5. [address] [facility] (Lab) [address], [place], [address], 05/06/2024 18:32:13 04/30/20 24 04/30/2024 CMP(C OMPRE HENSI VE METAB OLIC PANEL ) ALT 13 units /L 9-[address] [facility] (Lab) [address], [place], [address], 05/06/2024 18:32:13 04/30/20 24 04/30/2024 CMP(C OMPRE HENSI VE METAB OLIC PANEL ) alkaline phosphatase 58 units /L 34-[address] [facility] (Lab) [address], [place], [address], 05/06/2024 18:32:13 04/30/20 24 04/30/2024 CMP(C OMPRE HENSI VE METAB OLIC PANEL ) AST 17 units /L 13-[address] [facility] (Lab) [address], [place], [address], 05/06/2024 18:32:13 04/30/20 24 04/30/2024 CMP(C OMPRE HENSI VE METAB OLIC PANEL ) bilirubin, total 0.2 mg/dL 0.2-1. [address] [facility] (Lab) [address], [place], [address], 05/06/2024 18:32:13 04/30/20 24 04/30/2024 HEMOG LOBIN [...] >8.0% Actio n sugge sted Not Available [facility] (Lab) [address], [place], [address], 05/06/2024 18:32:13 04/30/20 24 04/30/2024 CHRISTOPHER TIN / IRON / TRANS CHRISTOPHER N / TIBC iron 29 ug/dL 40-[address] [facility] (Lab) [address], [place], [address], 05/06/2024 18:32:14 04/30/20 24 04/30/2024 CHRISTOPHER TIN / IRON / TRANS CHRISTOPHER N / TIBC transferrin 233 mg/dL 200-[address] [facility] (Lab) [address], [place], [address], 05/06/2024 18:32:14 04/30/20 24 04/30/2024 CHRISTOPHER TIN / IRON / TRANS CHRISTOPHER N / TIBC ferritin 41.1 NG/mL 8.0-[address] [facility] (Lab) [address], [place], [address], 05/06/2024 18:32:14 04/30/20 24 04/30/2024 CHRISTOPHER TIN / IRON / TRANS CHRISTOPHER N / TIBC TIBC 326 ug/dL 250-[address] [facility] (Lab) [address], [place], [address], 05/06/2024 18:32:14 04/30/20 24 04/30/2024 CHRISTOPHER TIN / IRON / TRANS CHRISTOPHER N / TIBC iron saturation 9 % 20-55 low Not Available [facility] (Lab) [address], [place], [address], 05/06/2024 18:32:14 04/30/20 24 04/30/2024 RUBEL LA IGG ANTIB MILI, QUANT rubella antibodies, IgG Reacti ve reacti ve Not Available [facility] (Lab) [address], [place], [address], 05/06/2024 18:32:14 04/30/20 24 04/30/2024 RUBEL LA IGG ANTIB MILI, QUANT rubella antibodies, IgG quant 29.8 IU/mL >=10 Non-r eacti ve (Non- Immun e) <10 IU/mL React jennifer (Immu ne) > or = 10 IU/mL Not Available [facility] (Lab) [address], [place], [address], 05/06/2024 18:32:14 04/30/20 24 04/30/2024 VITAM IN B12 / FOLAT E PANEL vitamin B12 452 pg/mL 180-91 4 Palmira l Range : 180-9 14 pg/mL . Indet ermin ate Range : 145-1 80 pg/mL . Defic ient Range : <=145 pg/mL . Not Available [facility] (Lab) [address], [place], [address], 05/06/2024 18:32:15 04/30/20 24 04/30/2024 VITAM IN B12 / FOLAT E PANEL folate, serum >20.0 NG/mL 6.0-20 [address] [facility] (Lab) [address] [place], [address], 05/06/2024 18:32:15 04/30/20 24 04/30/2024 VITAM IN D, 25-OH (TOTA L D2/D3 ) vitamin D, 25-hydroxy, total 29.7 NG/mL 30.0-1 00.0 low Sugge stive of Defic iency : <20 ng/mL Sugge stive of Insuf ficie ncy: 20-29 ng/mL Sugge stive of Suffi cienc y: 30-10 0 ng/mL Sugge stive of Toxic ity: >150 ng/mL Not Available [facility] (Lab) [address] [place], [address], 05/06/2024 18:32:15 04/30/20 24 04/30/2024 TYPE/ RH/SC REEN ABO/Rh type O POS Not Available [facility] (Lab) [address] [place], [address], 05/06/2024 18:32:16 04/30/20 24 04/30/2024 TYPE/ RH/SC REEN antibody screen NEG Not Available [facility] (Lab) [address], [place], [address], 05/06/2024 18:32:16 04/30/20 24 04/30/2024 TYPE/ RH/SC REEN exp date 2023 23:[address] [facility] (Lab) [address], [place], [address], 05/06/2024 18:32:16 04/30/20 24 04/30/2024 RPR SCREE N, REFLE X TITER /CONF IRMAT ION RPR screen Nonrea ctive nonrea ctive Not Available [facility] (Lab) [address], [place], [address], 05/06/2024 18:32:16 04/30/20 24 04/30/2024 VITAM IN [...] purpo ses. MDF med fusio n [address] [facility] [address] [phone] Latrice Enamorado MD, PhD Perfo rming Organ izati on Infor matio n: Site ID: [id number] Name: Med[employer] ancelmo- [facility] ancelmo Addre ss: [address], [address] [facility] [place] [address] Direc tor: Latrice Enamorado MD,Ph D Not Available [facility] (Lab) [address], [place], [address], 05/06/2024 18:32:16 04/30/20 24 04/30/2024 drug scree n, urine Amphetamines : negati ve Not Available [place] [address], [place], [address], 04/30/2024 16:02:32 04/30/20 24 04/30/2024 drug scree n, urine Cannabinoids : negati ve Not Available [place] [address], [place], [address], 04/30/2024 16:02:32 04/30/20 24 04/30/2024 drug scree n, urine Cocaine: negati ve Not Available [place] [address], [place], [address], 04/30/2024 16:02:32 04/30/20 24 04/30/2024 drug scree n, urine Opiates: negati ve Not Available [place] [address], [place], [address], 04/30/2024 16:02:32 04/30/20 24 04/30/2024 drug scree n, urine Phenocyclidi ne: negati ve Not Available [place] [address], [place], [address], 04/30/2024 16:02:32 04/30/20 24 04/30/2024 drug scree n, urine Barbiturates : negati ve Not Available [place] [address], [place], [address], 04/30/2024 16:02:32 04/30/20 24 04/30/2024 drug scree n, urine Benzodiazepi ermias: negati ve Not Available [place] [address], [place], [address], 04/30/2024 16:02:32 04/30/20 24 04/30/2024 drug scree n, urine Ethanol: negati ve Not Available [place] [address], [place], [address], 04/30/2024 16:02:32 04/30/20 24 04/30/2024 drug scree n, urine Hallucinogen s: negati ve Not Available [place] [address], [place], [address], 04/30/2024 16:02:32 04/30/20 24 04/30/2024 drug scree n, urine Inhalants: negati ve Not Available [place] [address], [place], [address], 04/30/2024 16:02:32 04/30/20 24 04/30/2024 drug scree n, urine Anabolic Steroids: negati ve Not Available [place] [address], [place], [address], 04/30/2024 16:02:32 04/30/20 24 04/30/2024 drug scree n, urine Other: negati ve Not Available [place] [address], [place], [address], 04/30/2024 16:02:32 06/25/19 25 06/25/2024 CBC W/DIF F WBC 9.7 10'3/ uL 3.5-[address] [facility] (Lab) [address], [place], [address], 07/02/2024 10:14:58 06/25/19 25 06/25/2024 CBC W/DIF F RBC 4.32 10'6/ uL (based on docume nted legal sex) 3.80-[address] [facility] (Lab) [address], [place], [address], 07/02/2024 10:14:58 06/25/19 25 06/25/2024 CBC W/DIF F HGB 12.4 g/dL (based on docume nted legal sex) 11.6-[address] [facility] (Lab) [address], [place], [address], 07/02/2024 10:14:58 06/25/19 25 06/25/2024 CBC W/DIF F HCT 38.2 % (based on docume nted legal sex) 34.0-[address] [facility] (Lab) [address], [place], [address], 07/02/2024 10:14:58 06/25/19 25 06/25/2024 CBC W/DIF F MCV 88.4 fL 80.0-[address] [facility] (Lab) [address], [place], [address], 07/02/2024 10:14:58 06/25/19 25 06/25/2024 CBC W/DIF F MCH 28.7 pg 27.0-[address] [facility] (Lab) [address], [place], [address], 07/02/2024 10:14:58 06/25/19 25 06/25/2024 CBC W/DIF F MCHC 32.5 g/dL 32.0-[address] [facility] (Lab) [address], [place], [address], 07/02/2024 10:14:58 06/25/19 25 06/25/2024 CBC W/DIF F RDW 12.3 % 11.0-[address] [facility] (Lab) [address], [place], [address], 07/02/2024 10:14:58 06/25/19 25 06/25/2024 CBC W/DIF F plt 280 10'3/ uL 150-[address] [facility] (Lab) [address], [place], [address], 07/02/2024 10:14:58 06/25/19 25 06/25/2024 CBC W/DIF F MPV 10.9 fL 8.8-[address] [facility] (Lab) [address], [place], [address], 07/02/2024 10:14:58 06/25/19 25 06/25/2024 CBC W/DIF F neutrophils 71.1 % 34.0-[address] [facility] (Lab) [address], [place], [address], 07/02/2024 10:14:58 06/25/19 25 06/25/2024 CBC W/DIF F lymphocytes 19.7 % 15.0-[address] [facility] (Lab) [address], [place], [address], 07/02/2024 10:14:58 06/25/19 25 06/25/2024 CBC W/DIF F monocytes 5.9 % 1.0-[address] [facility] (Lab) [address], [place], [address], 07/02/2024 10:14:58 06/25/19 25 06/25/2024 CBC W/DIF F eosinophils 2.2 % 0.0-8. [address] [facility] (Lab) [address], [place], [address], 07/02/2024 10:14:58 06/25/19 25 06/25/2024 CBC W/DIF F basophils 0.3 % 0.0-2. [address] [facility] (Lab) [address] [place], [address], 07/02/2024 10:14:58 06/25/19 25 06/25/2024 CBC W/DIF [...] separ ately if prese nt. Not Available [facility] (Lab) [address], [place], [address], 07/02/2024 10:14:58 06/25/19 25 06/25/2024 CBC W/DIF F absolute neutrophils 6.9 10'3/ uL 1.5-8. [address] [facility] (Lab) [address], [place], [address], 07/02/2024 10:14:58 06/25/19 25 06/25/2024 CBC W/DIF F absolute lymphocytes 1.9 10'3/ uL 1.0-4. [address] [facility] (Lab) [address], [place], [address], 07/02/2024 10:14:58 06/25/19 25 06/25/2024 CBC W/DIF F absolute monocytes 0.6 10'3/ uL 0.2-1. [address] [facility] (Lab) [address], [place], [address], 07/02/2024 10:14:58 06/25/19 25 06/25/2024 CBC W/DIF F absolute eosinophils 0.2 10'3/ uL 0.0-0. [address] [facility] (Lab) [address], [place], [address], 07/02/2024 10:14:58 06/25/19 25 06/25/2024 CBC W/DIF F absolute basophils 0.0 10'3/ uL 0.0-0. [address] [facility] (Lab) [address], [place], [address], 07/02/2024 10:14:58 06/25/19 25 06/25/2024 CBC W/DIF [...] mireles book. nm.or g/Gen derX Not Available [facility] (Lab) [address], [place], [address], 07/02/2024 10:14:58 06/25/19 25 06/25/2024 CMP(C OMPRE HENSI VE METAB OLIC PANEL ) sodium 138 mmol/ L 133-[address] [facility] (Lab) [address], [place], [address], 07/02/2024 10:14:58 06/25/19 25 06/25/2024 CMP(C OMPRE HENSI VE METAB OLIC PANEL ) potassium 4.1 mmol/ L 3.5-5. [address] [facility] (Lab) [address] [place], [address], 07/02/2024 10:14:58 06/25/19 25 06/25/2024 CMP(C OMPRE HENSI VE METAB OLIC PANEL ) chloride 104 mmol/ L 98-[address] [facility] (Lab) [address] [place], [address], 07/02/2024 10:14:58 06/25/19 25 06/25/2024 CMP(C OMPRE HENSI VE METAB OLIC PANEL ) carbon dioxide 27 mmol/ L 21-[address] [facility] (Lab) [address] [place], [address], 07/02/2024 10:14:58 06/25/19 25 06/25/2024 CMP(C OMPRE HENSI VE METAB OLIC PANEL ) anion gap 7 mmol/ L 4-[address] [facility] (Lab) [address], [place], [address], 07/02/2024 10:14:58 06/25/19 25 06/25/2024 CMP(C OMPRE HENSI VE METAB OLIC PANEL ) blood urea nitrogen 11 mg/dL 7-25 Not Available [facility] (Lab) [address], [place], [address], 07/02/2024 10:14:58 06/25/19 25 06/25/2024 CMP(C OMPRE HENSI VE METAB OLIC PANEL ) creatinine 0.45 mg/dL 0.60-1 [address] [facility] (Lab) [address], [place], [address], 07/02/2024 10:14:58 06/25/19 25 06/25/2024 CMP(C OMPRE HENSI VE METAB OLIC PANEL ) egfrcr (CKD-epi 2020) >90 mL/mi n/1.7 3_m2 >=[address] [facility] (Lab) [address], [place], [address], 07/02/2024 10:14:58 06/25/19 25 06/25/2024 CMP(C OMPRE HENSI VE METAB OLIC PANEL ) calcium 8.9 mg/dL 8.3-[address] [facility] (Lab) [address], [place], [address], 07/02/2024 10:14:58 06/25/19 25 06/25/2024 CMP(C OMPRE HENSI VE METAB OLIC PANEL ) glucose 69 mg/dL 70-[address] [facility] (Lab) [address] [place], [address], 07/02/2024 10:14:58 06/25/19 25 06/25/2024 CMP(C OMPRE HENSI VE METAB OLIC PANEL ) protein, total 6.3 g/dL 6.4-8. [address] [facility] (Lab) [address], [place], [address], 07/02/2024 10:14:58 06/25/19 25 06/25/2024 CMP(C OMPRE HENSI VE METAB OLIC PANEL ) albumin 3.8 g/dL 3.5-5. [address] [facility] (Lab) [address], [place], [address], 07/02/2024 10:14:58 06/25/19 25 06/25/2024 CMP(C OMPRE HENSI VE METAB OLIC PANEL ) ALT 46 units /L 9-[address] [facility] (Lab) [address], [place], [address], 07/02/2024 10:14:58 06/25/19 25 06/25/2024 CMP(C OMPRE HENSI VE METAB OLIC PANEL ) alkaline phosphatase 58 units /L 34-[address] [facility] (Lab) [address], [place], [address], 07/02/2024 10:14:58 06/25/19 25 06/25/2024 CMP(C OMPRE HENSI VE METAB OLIC PANEL ) AST 33 units /L 13-[address] [facility] (Lab) [address], [place], [address], 07/02/2024 10:14:58 06/25/19 25 06/25/2024 CMP(C OMPRE HENSI VE METAB OLIC PANEL ) bilirubin, total 0.2 mg/dL 0.2-1. [address] [facility] (Lab) [address] [place], [address], 07/02/2024 10:14:58 06/25/19 25 06/25/2024 CHRISTOPHER TIN / IRON / TRANS CHRISTOPHER N / TIBC iron 44 ug/dL 40-[address] [facility] (Lab) [address] [place], [address], 07/02/2024 10:14:59 06/25/19 25 06/25/2024 CHRISTOPHER TIN / IRON / TRANS CHRISTOPHER N / TIBC transferrin 296 mg/dL 200-[address] [facility] (Lab) [address] [place], [address], 07/02/2024 10:14:59 06/25/19 25 06/25/2024 CHRISTOPHER TIN / IRON / TRANS CHRISTOPHER N / TIBC ferritin 10.0 NG/mL 8.0-[address] [facility] (Lab) [address] [place], [address], 07/02/2024 10:14:59 06/25/19 25 06/25/2024 CHRISTOPHER TIN / IRON / TRANS CHRISTOPHER N / TIBC TIBC 414 ug/dL 250-[address] [facility] (Lab) [address] [place], [address], 07/02/2024 10:14:59 06/25/19 25 06/25/2024 CHRISTOPHER TIN / IRON / TRANS CHRISTOPHER N / TIBC iron saturation 11 % 20-55 low Not Available [facility] (Lab) [address] [place], [address], 07/02/2024 10:14:59 06/25/19 25 06/25/2024 VITAM IN B12 vitamin B12 319 pg/mL 180-91 4 Palmira l Range : 180-9 14 pg/mL . Indet ermin ate Range : 145-1 80 pg/mL . Defic ient Range : <=145 pg/mL . Not Available [facility] (Lab) [address] [place], [address], 07/02/2024 10:14:59 06/25/19 25 06/25/2024 VITAM IN D, 25-OH (TOTA L D2/D3 ) vitamin D, 25-hydroxy, total 29.1 NG/mL 30.0-1 00.0 low [place] stive of Defic iency : <20 ng/mL Sugge stive of Insuf ficie ncy: 20-29 ng/mL Sugge stive of Suffi cienc y: 30-10 0 ng/mL Sugge stive of Toxic ity: >150 ng/mL Not Available [facility] (Lab) [address], [place], [address], 07/02/2024 10:15:00 06/25/19 25 06/25/2024 VITAM IN [...] ation s and is used for clini jyason purpo ses. MDF med fusio n [address] [facility] [place] [address] [phone] Latrice Enamorado MD, PhD Perfo rming Organ izati on Infor matio n: Site ID: [id number] Name: MedFu ancelmo- MedFu ancelmo Addre ss: [address] [facility] [place] [address] Direc tor: Latrice Enamorado MD,Ph D Not Available [facility] (Lab) [address], [place], [address], 07/02/2024 10:15:01 04/30/20 24 04/30/2024 US, obste tric, nucha l trans lucen cy No observ ation record ed. [email or web address] [place] [address], [place], [address], 04/30/2024 16:23:18 04/30/20 24 04/30/2024 US, obste tric, 1st trime ster No observ ation record ed. [email or web address] [place] [address], [place], [address], 04/30/2024 16:23:26 04/30/20 24 04/30/2024 US, obste tric, nucha l trans lucen cy No observ ation record ed. [email or web address] [address], [place], [address], 04/30/2024 22:14:25 06/11/19 25 06/11/2024 US, obste tric, follo w-up No observ ation record ed. [email or web address] [facility] [address], [place], [address], 06/16/2024 19:29:30 06/11/19 25 06/11/2024 US, obste tric, follo w-up No observ ation record ed. [email or web address] [facility] [address] [place] [address], [address], 06/24/2024 22:25:46 07/07/19 25 07/07/2024 US, obste tric, follo w-up No observ ation record ed. [email or web address] [facility] [address] [place] [address], [address], 07/11/2024 00:03:29 07/07/19 25 07/07/2024 US, obste tric, follo w-up No observ ation record ed. [email or web address] [facility] [address] [place] [address], [address], 08/05/2024 18:17:59 07/08/19 25 07/07/2024 US, obste tric, follo w-up No observ ation record ed. [facility] [address], [place], [address], 07/10/2024 23:45:49 07/09/19 25 07/07/2024 US, obste tric, follo w-up No observ ation record ed. [facility] [address], [place], [address], 07/10/2024 23:46:49 07/09/19 25 07/07/2024 US, obste tric, follo w-up No observ ation record ed. [facility] [address] [place] [address], [address], 07/10/2024 23:48:37 Result Notes None recorded. Problems Name Problem SNOMED Code Status Onset Date Resolution Date Notes Provider Name and Address Organization Details Recorded Time History of bariatric surgical procedure 877657483 Active check labs [facility] referral faxed 05/08 [place] location scheduled 06/11/24 145 Level II US and OV 07/07 945 for US Checking BS QID Anesthesi ology consult in 3rd trimest -schedule with pre -admit appt Monitor labs per [facility] CMP/ lipid panel , Anemia panel , parathyro id hormone Doris Gaxiola null, [facility] 5 15:20:01 81937417 Active 2023 Kasia Goff null, [facility] 4 12:03:45 Atypical squamous cells of undetermi medina significa nce Active +HPV, colpo scheduled Deepa Cleary, TOMMIE [address], [place], [address], [place] [facility] 4 12:13:59 History of bariatric surgical procedure [id number] Active check labs [facility] referral faxed 05/08 [place] location scheduled 06/11/24 145 Level II US and OV 07/07 945 for US Checking BS QID Anesthesi ology consult in -schedule with pre -admit appt Monitor labs per [facility] CMP/ lipid panel , Anemia panel , parathyro id hormone Doris Minor pineda, [facility] 5 15:20:01 History of surgery 596268445 Active low back, no rods Deepa Cleary, GABINO [address], [place], [address], [facility] 4 12:14:50 Notes:history back surgery Problem Notes None recorded. Procedures Surgical History Date Name Laterality Status Provider Name and Address Organization Details Recorded Time 05/02/20 24 Colposcopy completed BELIA BELLAMY MD [address], [place], [address], [facility] 05/02/2024 14:29:30 05/02/20 24 [facility] 05/02/2024 19:53:36 05/02/20 24 [facility] 05/02/2024 19:54:27 03/26/20 24 Date of Last Pap Smear completed Kasiamichela Goff [facility] 03/26/2024 16:28:22 11/19/19 22 procedure on back completed Kasiamicheal Goff [facility] 03/26/2024 16:30:10 07/20/19 22 Bariatric Surgery completed Kasiamichela Goff [facility] 03/26/2024 16:18:49 Imaging Results Imaging Date Name Status LastModified by Organization Details LastModified Time 04/30/2024 US, obstetric, nuchal translucency completed [email or web address] [place] [address], [place], [address], 04/30/2024 16:23:18 04/30/2024 US, obstetric, 1st trimester completed [email or web address] [place] [address], [place], [address], 04/30/2024 16:23:26 04/30/2024 US, obstetric, nuchal translucency completed [email or web address] [address], [place], [address], 04/30/2024 22:14:25 06/11/2024 US, obstetric, follow-up completed [place] [address], [place], [address], 06/16/2024 19:29:30 06/11/2024 US, obstetric, follow-up completed [address] [facility] [place] [address] [place], [address], 06/24/2024 22:25:46 07/07/2024 US, obstetric, follow-up completed [facility] [address] [place], [address], 07/11/2024 00:03:29 07/07/2024 US, obstetric, follow-up completed [address] [facility] [place] [address] [facility] [place], [address], 08/05/2024 18:17:59 07/07/2024 US, obstetric, follow-up completed [facility] [address], [place], [address], 07/10/2024 23:45:49 07/07/2024 US, obstetric, follow-up completed [facility] [address], [place], [address], 07/10/2024 23:46:49 07/07/2024 US, obstetric, follow-up completed [email or web address] [facility] [address] [place], [address], 07/10/2024 23:48:37 Procedure Notes None recorded. Medical [...] Last Updated DateTime 160.02 cm 28.7 kg/m2 19823.9 6 g 57776.9 6394 g 118 mm[Hg] 78 mm[Hg] 118 mm[Hg] 78 mm[Hg] Kasia Goff [facility] 12:08:31 Date Recorded Body height Body mass index (BMI) Body weight Systolic blood pressure Diastolic blood pressure Provider Name and Address Organization Details Last Updated DateTime 05/02/2024 160.02 cm 28.5 kg/m2 84548.37 g 118 mm[Hg] 73 mm[Hg] Larisa Durant [facility] 4 13:59:39 Date Recorded Body height Body mass index (BMI) Body weight Systolic blood pressure Diastolic blood pressure Provider Name and Address Organization Details Last Updated DateTime 06/03/2024 160.02 cm 29.8 kg/m2 65354.95 5108 g 126 mm[Hg] 76 mm[Hg] ARI Serrano [facility] 5 17:28:22 Date Recorded Body height Body mass index (BMI) Body weight Systolic blood pressure Diastolic blood pressure Provider Name and Address Organization Details Last Updated DateTime 06/25/2024 160.02 cm 31.2 kg/m2 02198.25 712 g 121 mm[Hg] 75 mm[Hg] Kasia Goff [facility] 5 16:24:10 Date Recorded Body height Body mass index (BMI) Body weight Systolic blood pressure Diastolic blood pressure Provider Name and Address Organization Details Last Updated DateTime 07/25/2024 160.02 cm 32.6 kg/m2 90529 g 122 mm[Hg] 78 mm[Hg] Larisa Bhargav [facility] 5 14:57:03 Social History Question Answer Notes LastModified by Organizat ion Details LastModified Time Tobacco Smoking Status Never Smoker Kasia Goff [facility], [facility] 03/26/2024 16:29:51 What Is Your Level Of Alcohol Consumption? None [email or web address] Information not available 03/26/2024 If You Are , What Was Your Level Of Alcohol Consumption Prior To ? Occasional [email or web address] Information not available 03/26/2024 How Many Years Have You Consumed Alcohol? 2 [email or web address] Information not available 03/26/2024 Are You Blind Or Do You Have Difficulty Seeing? No [email or web address] Information not available 03/26/2024 What Is Your Level Of Caffeine Consumption? Moderate Information not available 03/26/2024 How Much Tobacco Do You Chew? None [email or web address] Information not available 03/26/2024 In The 14 Days Before Symptom Onset, Have You Had Close Contact With A Laboratory-confir med COVID-19 While That Case Was Ill? No [email or web address] Information not available 03/26/2024 In The 14 Days Before Symptom Onset, Have You Had Close Contact With A Person Who Is Under Investigation For COVID-19 While That Person Was Ill? No [email or web address] Information not available 03/26/2024 Have You Been To An Area Known To Be High Risk For COVID-19? No Information not available 03/26/2024 Are You Deaf Or Do You Have Serious Difficulty Hearing? No Information not available 03/26/2024 What Type Of Diet Are You Following? REGULAR [email or web address] Information not available 03/26/2024 What Is The Highest Grade Or Level Of School You Have Completed Or The Highest Degree You Have Received? 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 No [email or web address] Information not available 03/26/2024 Do You Use Protection During Sex? No [email or web address] Information not available 03/26/2024 Do You Use Your Seat Belt Or Car Seat Routinely? Yes [email or web address] Information not available 03/26/2024 Are You Sexually Active? Yes [email or web address] Information not available 06/03/2024 Do You Have Smoke And Carbon Monoxide Detectors In Your Home? Yes Information not available 03/26/2024 How Much Tobacco Do You Smoke? No [email or web address] Information not available 03/26/2024 Do You Feel Stressed (tense, Restless, Nervous, Or Anxious, Or Unable To Sleep At Night)? [id number] Information not available 03/26/2024 Do You Use Any Illicit Or Recreational Drugs? No [email or web address] Information not available 03/26/2024 Do You Use Sunscreen Routinely? No [email or web address] Information not available 03/26/2024 Has Tobacco Cessation Counseling Been Provided? No [email or web address] Information not available 03/26/2024 Have You Used IV Drugs? No [email or web address] Information not available 03/26/2024 Do You Or Have You Ever Used Any Other Forms Of Tobacco Or Nicotine? No [email or web address] Information not available 03/26/2024 Sex: Unknown Functional Status Question Answer Note LastModified by Organizat ion Details LastModified Time Do you have difficulty walking or climbing stairs? No [email or web address] Information not available 03/26/2024 Are you able to walk? YESWOREST [email or web address] Information not available 03/26/2024 Are you able to care for yourself? Yes [email or web address] Information not available 03/26/2024 Do you have difficulty dressing or bathing? No [email or web address] Information not available 03/26/2024 What is your exercise level? Moderate [email or web address] Information not available 03/26/2024 Mental Status None recorded. Family History Relationship Description Onset Age of this Age Resolved Age Notes LastModified by Organization Details LastModified Time Unspecified Relation Family history unknown [email or web address] Not available 03/26 16:18:49 Medical History Condition [...] SNOMED-CT Code Diagnosis ICD10 Code Diagnosis Note [id number] Deisi Zhang [place] [address],[place] [address] 03/26/2024 15:15:28 03/26/2024 16:06:04 [id number] Deepa Cleary [facility] [address],[place] [address] 03/26/2024 15:19:21 03/26/2024 17:09:01 Gynecologic examination 59777052 Z01.419 pap collectedm iralax for constipati ontylenol or excedrin tension okreviewed education and precaution splan new ob and first look in 5 weeks with NIPTreview ed us, subchorion ic hemorrhage [id number] [facility] [address],[place] [address] 04/30/2024 14:50:50 04/30/2024 15:32:37 screening 454578704 Z36.82 Z3A.12 [id number] Kasia Goff [place] [address],[place] [address] 04/30/2024 14:52:47 05/03/2024 07:13:47 Gestation period, 12 weeks 16546780 Z3A.12 Routine an tenatal care 058553142 Z34.90 [id number] BELIA BELLAMY MD [place] [address],[place] [address] 05/02/2024 13:47:26 05/02/2024 14:53:03 Atypical squamous cells of undetermined significance on cervical Papanicolaou smear 354102373 R87.610 - Colposcopy performed, patient tolerated well- recommend repeat pap Human gunjan llomavirus deoxyribonucleic acid detected, high risk on cervical specimen 656071995 R87.810 [id number] BELIA BELLAMY MD [place] [address],[place] [address] 06/03/2024 17:18:29 06/03/2024 18:14:12 History of bariatric surgical procedure 738043749 Z98.84 - MFM referral sent, scheduled Gestation period, 17 weeks 73435921 Z3A.17 - continue PNV [id number] Deepa Cleary CNM [place] [address],[place] [address] 06/25/2024 15:46:02 06/25/2024 16:36:40 Gestation period, 20 weeks 28568522 Z3A.20 continue vitamin [id number] BELIA BELLAMY MD [place] [address],[place] [address] 07/25/2024 14:49:13 07/25/2024 15:19:30 History of bariatric surgical procedure 450266192 Z98.84 - MFM referral completed- repeat growth at 32 weeks- glucose check supplies sent out Gestation period, 24 weeks 963727559 Z3A.24 - continue pNV Health Concerns Section [...] 1 *SELF PAY* Scott Baum 06/03/2024 1 [place] Vania Baum [id number] Pat Baum 06/25/2024 1 [facility] - DOS ON OR AFTER 20 (MEDICAID REPLACEMENT - HMO) Pat Baum [id number] Pat Baum 07/25/2024 1 [facility] - DOS ON OR AFTER 20 (MEDICAID REPLACEMENT - HMO) Pat Baum [id number] Pat Baum Notes Date Note Type Note Provider Name and Address Organization Details Recorded Time 05/02/2024 text/html Patient presents for colposcopy, indicated for ASCUS +HPV pap. BELIA BELLAMY MD [address], [place], [address], [facility] 05/02/2024 14:41:20 OBGyn Episode Ob Episode Information Episode Created Date Number of Fetuses Patient Bloodtype Patient rh Status Prepregnancy Weight lbs Domestic Partner Domestic Partner Phone Father Name Draw String Knotter Status 05/02/20 24 1 O Positive OPEN Fetus Data First Name Last Name Admitted to NICU Weight (g) Sex Living Outcome Pediatric Complications Fetus ID Race Codes Race Delivery Type [id number] Problems Problem Notes Low vit D & A otcRepeat CMP 1wkschedule 32wk us no further us with [facility] Problem Name Start Date End Date Resolution Snomed Code Not e History of surgery 689408691 l ow back, no rods History of bariatric surgical procedure 571484362 check lab s M [facility] referral faxed 05/08 [place] location scheduled 06/11/24 145 Level II US and OV 07/07 945 for USChecking BS QID Anesthesiology consult in 3rd trimest -schedule with pre -admit appt Monitor labs per [facility] CMP/ lipid panel , Anemia panel , parathyroid hormone Atypical squamous cells of undetermined significance [id number] +HPV, colpo taurus eduled Richard Calculation Initial [...] Type Weight in lbs Pre/Post Dialysis Refused 162.355751149005 BP Diastolic BP Location Tested BP Systolic [...] Weight in lbs Pre/Post Dialysis Refused Weight 161.988988688433 BP Diastolic BP Location Tested BP Systolic BP Type 73 L arm 118 sitting Fetus Heart Rate Present Fetus Movement Comments Colposcopy, see procedure no te. Flowsheet Date 06/03/2024 Mcallister Score Blood Edema Fundus Height Fundus Units Glucose Ketones Leukocytes Nitrite Labor Signs Protein Cervic Dilation Cervic Effacement Cervic Station neg trace Type Weight in lbs Pre/Post Dialysis Refused 168.803006286512 BP Diastolic BP Location Tested BP Systolic [...] Type Weight in lbs Pre/Post Dialysis Refused 176.825822472476 BP Diastolic BP Location Tested BP Systolic BP Type 75 121 Fetus Heart Rate Present A 130 Present Fetus Movement A Yes Comments Patient states that is havin g some nausea. plan rpt labs today, sees mfm in 2 weeks, occasional movement, looking for a academic intern f/u here in 4 weeks Flowsheet Date 07/25/2024 Mcallister Score Blood Edema Fundus Height Fundus Units Glucose Ketones Leukocytes Nitrite Labor Signs Protein Cervic Dilation Cervic Effacement Cervic Station neg none Type Weight in lbs Pre/Post Dialysis Refused Weight 184.453697494699 BP Diastolic BP Location Tested BP Systolic BP Type 78 L arm 122 sitting Fetus Heart Rate Present A 140 Fetus Movement A Yes Comments Patient c/o slight nausea. G ood movement, no cramping or bleeding. Last growth US with MFM 2 weeks ago, EFW 88%, breech. Recommend repeat growth with [facility] at 32 weeks. Discussed finger sticks and [...]
[2024-08-15 11:42] VITALS: PULSE 86
[2024-08-15 12:26] VITALS: BP 117/62; PULSE 89
--- NOTE | 2024-08-15 12:38 | ED.GENADULT ---
HPI - General Adult General Chief complaint: Unspecified Stated complaint: stomach & chest pains, diarrhea 27 wks preg Time Seen by Provider: 08/15/24 12:02 History of Present Illness HPI narrative: 23-year-old female that is approximately 27 weeks presenting to the emergency department with nausea, vomiting, chest burning sensation and diarrhea since this morning. Yesterday night she went about her normal state of health, ate at a local restaurant thinks she may have caught food poisoning. No one else ate fair and she was not having any similar symptoms in her family or with close contacts. She endorses waking up feeling nauseous and went to the bathroom and had watery diarrhea several times followed by 1 episode of emesis with resulting burning epigastric sensation. She has had burning in her chest during her and this is her 1st . Denies any problems with the thus far, regular visits with her OB care team with Shira Cleary. Patient recently had influenza several weeks ago. States this feels dissimilar. No vaginal bleeding or leakage of fluids, does feel baby move. Related Data Allergies Allergy/AdvReac Type Severity Reaction Status Date / Time No Known Allergies Allergy Verified 08/15/24 11:44 Review of Systems Review of Systems: As reviewed above in HPI [facility] Past Medical History Medical History No significant medical problems Surgical History Surgical History No pertinent past surgical history Social History Social History Substance use: never Gender identity (if verbalized by the patient): Female Exam Narrative: GENERAL: [Well-appearing, well-nourished, and in no acute distress.] HEAD: [Normocephalic, atraumatic.] EYES: [PERRLA and EOMI.] ENT: Nares clear, no rhinorrhea or epistaxis. Mucous membranes moist. NECK: Supple. CHEST: [Clear to auscultation. No respiratory distress.] HEART: [Regular rate and rhythm]. No murmur heard. [Normal peripheral pulses.] ABDOMEN: Gravid abdomen but soft and nontender, [No rigidity or guarding] EXTREMITIES: Normal range of motion. [No edema.] SKIN: Warm, dry, no rash. NEURO: [No focal deficits]. Alert and oriented [x3.] PSYCH: [Normal mood and affect.] Course Vital Signs Vital signs: Vital Signs Temperature 36.4 C 08/15/24 10:49 Pulse Rate 120 H 08/15/24 10:49 Respiratory Rate 18 08/15/24 10:49 Blood Pressure 92/64 L 08/15/24 10:49 Pulse Oximetry 99 08/15/24 10:49 Oxygen Delivery Room Air 08/15/24 10:49 Temperature 36.4 C 08/15/24 10:49 Pulse Rate 89 08/15/24 12:26 Respiratory Rate 18 08/15/24 10:49 Blood Pressure 117/62 08/15/24 12:26 Pulse Oximetry 99 08/15/24 10:49 Oxygen Delivery Room Air 08/15/24 10:49 Medical Decision Making MDM Narrative Medical decision making narrative: 23-year-old female that is 27 weeks presenting to the emergency department with nausea vomiting diarrhea burning epigastric pain. She states that she woke up today feeling somewhat nauseous and went to bathroom and had several episodes of diarrhea. Endorses burning in her epigastrium with 1 episode of vomiting. No present nauseousness. She states her abdomen is having some cramping but no vaginal bleeding or leakage of fluids. Still feels baby move. In triage she initially had a tachycardic pulse but this resolved when she laid down in bed. Blood pressure on the soft side 92/64. She otherwise appears well not any acute distress. She is answering all my questions appropriately, has a soft gravid abdomen without any tenderness on palpation. Considerations presently are for gastroenteritis, bacterial food poisoning from restaurant yesterday, low suspicion intra-abdominal process such as pancreatitis, appendicitis, gallbladder disease. Triage ordered laboratory studies, CBC, CMP, lipase, chest x-ray, troponin. Patient was given D5 LR for hydration secondary to volume losses from diarrheal illness, Pepcid, Maalox and Bentyl and re-evaluated frequently. Nonstress test ordered and OBGYN services will conduct this at bedside. Nonstress test was reassuring per the OBGYN service that have came down and evaluated the patient. Laboratory studies are also reassuring, slight leukocytosis 11.9 likely secondary to gastroenteritis and diarrheal illness. Normal hemoglobin, normal platelets. Normal electrolytes, normal renal and hepatic function panel. Negative troponin. Urinalysis with some ketones for which she was provide dextrose containing fluids but no signs of infection or blood. Chest x-ray shows no pneumonia or infection. Patient was re-evaluated had improved significantly. After fluids she was no longer tachycardic or having low blood pressure readings. She will be safe for discharge home at this time with symptom control medications including Zofran and Bentyl as needed. Medical Records Medical records reviewed: Yes I reviewed the external patient's medical records. Vital Signs Vital Signs: Vital Signs Temperature 36.4 C 08/15/24 10:49 Pulse Rate 120 H 08/15/24 10:49 Respiratory Rate 18 08/15/24 10:49 Blood Pressure 92/64 L 08/15/24 10:49 Pulse Oximetry 99 08/15/24 10:49 Oxygen Delivery Room Air 08/15/24 10:49 Temperature 36.4 C 08/15/24 10:49 Pulse Rate 89 08/15/24 12:26 Respiratory Rate 18 08/15/24 10:49 Blood Pressure 117/62 08/15/24 12:26 Pulse Oximetry 99 08/15/24 10:49 Oxygen Delivery Room Air 08/15/24 10:49 Lab Data Lab results reviewed: Yes I reviewed the patient's lab results. 08/15/24 10:37 08/15/24 10:37 Labs: Lab Results 08/15/24 08/15/24 Range/Units 10:37 13:01 WBC 11.9 H (4.5-10.0) K/mm3 RBC 4.54 (4.2-5.4) M/mm3 Hgb 12.8 (12.0-15.0) g/dL Hct 39.2 (37.0-47.0) % MCV 86.3 (80-100) fl MCH 28.2 (26-34) pg MCHC 32.7 (32-36) g/dl RDW 12.2 (11.5-14.5) % Plt Count 282 (150-375) k/mm3 MPV 9.8 (7.4-10.4) fl Immature Gran % (Auto) Not Reportable Neut % (Auto) Not Reportable Lymph % (Auto) Not Reportable [place] % (Auto) Not Reportable Eos % (Auto) Not Reportable Baso % (Auto) Not Reportable Lymph # (Auto) Not Reportable [place] # (Auto) Not Reportable Eos # (Auto) Not Reportable Baso # (Auto) Not Reportable Abs Immat Gran (auto) Not Reportable Absolute Neuts (auto) Not Reportable Absolute Nucleated RBC Not Reportable Total Counted 100 Neutrophils % (Manual) 84 H (46-73) % Band Neutrophils % 6 (0-6) % Lymphocytes % (Manual) 7 L (18-44) % Monocytes % (Manual) 2 L (3-9) % Eosinophils % (Manual) 1 (0-4) % Basophils % (Manual) 0 (0-1) % Nucleated RBC % Not Reportable Abs Neuts (Manual) 10.71 H (1.7-7.2) K/mm3 Abs Lymphs (Manual) 0.83 L (1.1-4.5) K/mm3 Abs Monocytes (Manual) 0.23 (0.1-0.90) K/mm3 Absolute Eos (Manual) 0.11 (0.02-0.50) K/mm3 Abs Basophils (Manual) 0.00 (0.0-0.1) K/mm3 Platelet Estimate Adequate (Adequate) Large Platelets Present Giant Platelets Present Schistocytes None seen PT 13.2 (11.1-14.7) Seconds INR 1.0 APTT 30.5 (22.3-36.8) Seconds Sodium 135 L (137-145) mmol/L Potassium 3.7 (3.4-5.0) mmol/L Chloride 104 (98-107) mmol/L Carbon Dioxide 20 L (22-30) mmol/L Anion Gap 11 (4-12) mmol/L BUN 7 (7-17) mg/dL Creatinine 0.49 L (0.7-1.0) mg/dL Estim Creat Clear Calc 151 ml/min Estimated GFR > 60 (59 - ) Glucose 83 (65-110) mg/dL Calcium 8.6 (8.4-10.2) mg/dL Total Bilirubin 0.3 (0.2-1.3) mg/dL AST 46 H (14-36) U/L ALT 30 (6-35) U/L Alkaline Phosphatase 99 (38-126) U/L Troponin I < 0.012 (0.000-0.034) ng/mL Total Protein 7.0 (6.3-8.2) g/dL Albumin 3.9 (3.5-5.1) g/dL Lipase 59 (23-300) U/L Urine Color Yellow (Yellow) Urine Appearance Cloudy H (Clear) Urine pH 6.5 (5.0-9.0) Ur Specific [place] 1.018 (1.001-1.035) Urine Protein Negative (Negative) mg/dL Urine Glucose (UA) Negative (Negative) mg/dL Urine Ketones 2+ H (Negative) mg/dL Ur Blood (Man) Negative (Negative) Urine Nitrate Negative (Negative) Urine Bilirubin Negative (Negative) Urine Urobilinogen 0.2 (<2.0) mg/dL Leukocyte Esterase Rfl Negative (Negative) UMBERTO/UL Urine RBC 0-2 (0-2) /hpf Urine WBC 0-5 (0-3) /hpf Ur Squamous Epith Cells None seen (Few) /hpf Urine Bacteria None seen /hpf Urine Casts 0-2 Imaging Data Attestation: I personally reviewed and interpreted this imaging study as follows: My impression: Impressions Chest X-Ray 08/15/24 11:00 IMPRESSION: 1. No acute cardiopulmonary disease. Discharge Plan Discharge Clinical Impression: Gastroenteritis, Food poisoning Patient Disposition: Home, Self-Care Condition: Stable Instructions: Antibiotic Form, Gastroenteritis (DC), Food Poisoning (ED) Additional Instructions: Your laboratory studies are reassuring, your symptoms very consistent with bacterial gastroenteritis or food poisoning. We will send you home with some as needed medications for symptom control including Zofran for nausea and Bentyl for any abdominal cramping. Follow-up with your OBGYN. Return to the ER with any new or worsening concerns at any time. Patient Language: Swedish Prescriptions: New dicyclomine 10 mg capsule 10 mg PO BID PRN (Reason: abdominal pain) Qty: 20 0RF ondansetron 4 mg tablet,disintegrating 4 mg PO Q8H PRN (Reason: nausea and vomiting) Qty: 14 0RF Follow-up/Referrals: UNKNOWN,DOCTOR [Primary Care Provider] - Time of Disposition: 14:06
[2024-08-15 13:10] LABS: Add Urine Microscopic? YES; Appearance Urine Cloudy (Clear); Bacteria Urine None Seen /hpf; Bilirubin Urine Negative (Negative); Blood Urine Negative (Negative); Color Urine Yellow (Yellow); Glucose Urine UA Negative (Negative); Ketones Urine 2+ mg/dL (Negative); Leukocyte Esterase Ur Negative LEU/UL (Negative); Nitrate Urine Negative (Negative); Non Pathogenic Casts 0-2; Protein Urine Negative (Negative); RBC Urine 0-2 /hpf (0-2); Specific Grav Ur 1.018 (1.001-1.035); Squamous Epithelial Cell Urine None Seen /hpf (Few); Urobilinogen Urine 0.2 mg/dL (<2.0); WBC Urine 0-5 /hpf (0-3); pH Urine 6.5 (5.0-9.0)
--- OUTSIDE RECORDS SUMMARY | 2024-08-15 13:11 | XMS_ITS | Clinical Summary ---
Author Organization [facility] Address [address] [place] [address] Care Team Providers Care Credit Card Analyst Name Role Phone Arleth Kyle MD Primary Care Provider [phone] Source Comments [facility],non-owned Affiliates and Associated Physician Practices is amultiple site organization consisting of ambulatory clinics and hospital sitesin [place], [place], [place] and [place]. This disclosure is being madepursuant to the Care Everywhere program and may not contain all information available regarding this patient. Last updated 18.[facility] Allergies No known active allergies Medications [...] daily Patient takes 2400 mcg of the [place] brand vitamin A. Active Encounters Date Type Department Care Team Description 07/07/2024 9:39 AM BODY ARTIST - 07/07/2024 11:59 PM BODY ARTIST Hospital Encounter [facility] [address] [place] [address] Head, Emily Tellez MD Discharge Disposition: Home or Self Care 06/11/2024 1:46 PM BODY ARTIST - 06/11/2024 11:59 PM BODY ARTIST Hospital Encounter [facility] [address] [place] [id number] Juan C Lang MD Discharge Disposition: Home or Self Care 06/11/2024 1:39 PM BODY ARTIST - 06/11/2024 1:45 PM BODY ARTIST Hospital Encounter [facility] [address] [place] [address] Juan C Lang MD Discharge Disposition: Home [...] Comments Blood Pressure 117/54 06/11/2024 2:42 PM BODY ARTIST Pulse 67 06/11/2024 2:42 PM BODY ARTIST Temperature 36.9 C (98.4 F) 08/25/2011 1:21 AM CDT Respiratory Rate 20 08/25/2011 1:21 AM CDT Oxygen Saturation 100% 08/24/2011 11:45 PM CDT Inhaled Oxygen Concentration - - Weight 78 kg (172 lb) 06/11/2024 2:42 PM BODY ARTIST Height 160 cm (5' 3 ) 06/11/2024 2:58 PM BODY ARTIST Body Mass Index 30.47 06/11/2024 2:42 PM BODY ARTIST Plan of Treatment Health Maintenance Due Date [...] - COMPLETE Routine 07/07/2024 9 :34 AM BODY ARTIST Hx of bariatric surgery 22 weeks gestation of Encounter for follow-up ultrasound of anatomy SONOGRAM - COMPLETE Routine 06/11/2024 1 :49 PM BODY ARTIST Encounter for anatomic survey Hx of bariatric surgery 18 weeks gestation of from Last 3 Months Results * SONOGRAM - COMPLETE (07/07/2024 9:34 AM BODY ARTIST) Only the most recent of2 resultswithin the [...] 1 lb 4 oz EFW by Hadlock ([id number]) appropriate Growth Overview Exam date GA BPD (mm) HC (mm) AC (mm) FL (mm) HL (mm) EFW (g) 06/11/2024 18w 3d 44.7 89% 163.1 74% 143.1 84% 26.8 34% 27.5 69% 268 77% 07/07/2024 22w 1d 56.9 88% 205.1 58% 186.2 81% 40.1 67% 39.1 93% 568 88% Anatomy The following structures appear normal: Heart / Thorax 4-chamber view. 3-bvebro-gswyrmw view. Aortic arch view. Bicaval view. Diaphragm. [...] growth assessment is recommended Coding ====== Procedures 24893: US Preg Uterus Follow Up Maven7 PACS Anatomical Region Laterality Modality Other 07/07/2024 9:34 AM BODY ARTIST R Mateusz Jacobson MD [facility] ORDERABLES from Last 3 Months Care Teams Credit Card Analyst Relationship Specialty Start Date End Date Arleth Kyle MD [address] [place] [address] PCP - General 02/01/11
[2024-08-15] MEDS: DEXTROSE 5%/LACTATED RINGERS 1,000 ML 1000 ML IV CONT (13:39)
[2024-08-15] MEDS: FAMOTIDINE 20 MG/2 ML VIAL IV PUSH (13:40)
[2024-08-15] MEDS: ONDANSETRON INJ 4 MG/2 ML VIAL IV PUSH (13:41)
[2024-08-15] MEDS: DICYCLOMINE HCL 10 MG CAPSULE PO (13:41)
[2024-08-15] MEDS: MAG HYDROX/AL HYDROX/SIMETH 30 ML UDC PO (13:42)
[2024-08-15 14:58] VITALS: BP 100/60; PULSE 96; RESP 20; O2SAT 100
== END 2024-08-15 14:59 | disposition home or self-care (01) ==
PROVIDERS: Family Medicine; Emergency Provider Student in an Organized Health Care Education/Training Program
DX: O99.612 Diseases of the digestive system complicating pregnancy, second trimester (principal); K52.9 Noninfective gastroenteritis and colitis, unspecified; A05.9 Bacterial foodborne intoxication, unspecified; Z3A.27 27 weeks gestation of pregnancy
CPT/HCPCS: 36415; 71046; 80053; 81001; 83690; 84484; 85025; 85610; 85730; 93005; 96361; 96374; 96375; 99284; A9270; J2405; J7121

== ENCOUNTER 2024-10-28 21:30 | Outpatient (CLI) | payer OTHER, SELFPAY ==
[2024-10-28] VITALS (16 sets, daily range): BP systolic 111–115; BP diastolic 67–76; PULSE 42–77; O2SAT 88–100
--- OUTSIDE RECORDS SUMMARY | 2024-10-28 21:37 | XMS_ITS | Data Portability ---
Author Organization [facility], [place] Address [address] [place] [address] Assessment Encounter Date Assessment Date Assessment LastModified by Organization Details LastModified Time 09/25/2024 09/25/2024 Patient is _33__weeks . Discussed plan. Not available 09/25/2024 11:00:36 10/10/2024 10/10/2024 Patient is _35__weeks . Discussed plan. [email or web address] Not available 10/10/2024 16:01:14 10/17/2024 10/17/2024 Patient is 36___weeks . Discussed plan. Not available 10/17/2024 12:04:12 10/22/2024 10/22/2024 Patient is _37__weeks . Discussed plan. Not available 10/22/2024 10:32:38 Plan of Treatment Reminders Order Date Submit Date Provider Last Modified By Organization Details Last Modified Time Details Appointments OB ROUTINE 2024 09:15A Javid Cleary CNM Not available Not available Not available OB ROUTINE 2024 09:45A Javid Cleary CNM Not available Not available Not available Lab None recorded . Referral None recorded . Procedures None recorded . Surgeries None recorded . Imaging US, obstetri c, follow-u p 2024 025 [place], [address], [place], [address], 10/14/2024 16:56:11 Medication Orders None recorded . Patient TargetsNo targets recorded. Patient InstructionsNo instructions recorded. Reason for Referral None Reported. Results Created Date Observation Date Name Description Value Unit Range Abnormal Flag Note LastModifiedBy Organization Detail LastModifiedTime 09/10/19 25 09/09/2024 RETIC ULOCY TE COUNT reticulocyte count percent 1.73 % 0.50-2 .50 Not Available [facility] (Lab) [address], [place], [address], 09/10/2024 05:11:11 09/10/19 25 09/09/2024 RETIC ULOCY TE COUNT reticulocyte count absolute 77.00 10'3/ uL no define d refere nce range Refer ence range s for nonbi nary/ inter sex or unspe cifie d gende r patie nts have not been estab lishe d. Pleas e refer to the [place] [facility] table for range s estab lishe d for cisge nder patie nts and evalu ate in the clini jayson opal xt of the indiv idual patie nt: https ://marv mireles book. nm.or g/gen derx Not Available [facility] (Lab) [address], [place], [address], 09/10/2024 05:11:11 09/10/19 25 09/09/2024 CMP(C OMPRE HENSI VE METAB OLIC PANEL ) sodium 135 mmol/ L 133-14 6 Not Available [facility] (Lab) [address] [place], [address], 09/10/2024 05:11:12 09/10/19 25 09/09/2024 CMP(C OMPRE HENSI VE METAB OLIC PANEL ) potassium 3.7 mmol/ L 3.5-5. 1 Not Available [facility] (Lab) [address] [place], [address], 09/10/2024 05:11:12 09/10/19 25 09/09/2024 CMP(C OMPRE HENSI VE METAB OLIC PANEL ) chloride 102 mmol/ L 98-107 Not Available [facility] (Lab) [address] [place], [address], 09/10/2024 05:11:12 09/10/19 25 09/09/2024 CMP(C OMPRE HENSI VE METAB OLIC PANEL ) carbon dioxide 23 mmol/ L 21-31 Not Available [facility] (Lab) [address] [facility], [place], [address], 09/10/2024 05:11:12 09/10/19 25 09/09/2024 CMP(C OMPRE HENSI VE METAB OLIC PANEL ) anion gap 10 mmol/ L 4-13 Not Available [facility] (Lab) [address] [facility], [place], [address], 09/10/2024 05:11:12 09/10/19 25 09/09/2024 CMP(C OMPRE HENSI VE METAB OLIC PANEL ) blood urea nitrogen 10 mg/dL 7-[address] [facility] (Lab) [address] [facility], [place], [address], 09/10/2024 05:11:12 09/10/19 25 09/09/2024 CMP(C OMPRE HENSI VE METAB OLIC PANEL ) creatinine 0.66 mg/dL 0.60-1 .30 Not Available [facility] (Lab) [address] [facility], [place], [address], 09/10/2024 05:11:12 09/10/19 25 09/09/2024 CMP(C OMPRE HENSI VE METAB OLIC PANEL ) egfrcr (CKD-epi 2020) >90 mL/mi n/1.7 3_m2 >=60 Not Available [facility] (Lab) [address] [facility], [place], [address], 09/10/2024 05:11:12 09/10/19 25 09/09/2024 CMP(C OMPRE HENSI VE METAB OLIC PANEL ) calcium 8.7 mg/dL 8.3-10 .5 Not Available [facility] (Lab) [address] [place], [address], 09/10/2024 05:11:12 09/10/19 25 09/09/2024 CMP(C OMPRE HENSI VE METAB OLIC PANEL ) glucose 55 mg/dL 70-100 low Not Available [facility] (Lab) [address] [facility], [place], [address], 09/10/2024 05:11:12 09/10/19 25 09/09/2024 CMP(C OMPRE HENSI VE METAB OLIC PANEL ) protein, total 6.6 g/dL 6.4-8. 3 Not Available [facility] (Lab) [address] [facility], [place], [address], 09/10/2024 05:11:12 09/10/19 25 09/09/2024 CMP(C OMPRE HENSI VE METAB OLIC PANEL ) albumin 3.8 g/dL 3.5-5. 0 Not Available [facility] (Lab) [address] [facility], [place], [address], 09/10/2024 05:11:12 09/10/19 25 09/09/2024 CMP(C OMPRE HENSI VE METAB OLIC PANEL ) ALT 14 units /L 9-43 Not Available [facility] (Lab) [address] [facility], [place], [address], 09/10/2024 05:11:12 09/10/19 25 09/09/2024 CMP(C OMPRE HENSI VE METAB OLIC PANEL ) alkaline phosphatase 94 units /L 34-104 Not Available [facility] (Lab) [address] [place], [address], 09/10/2024 05:11:12 09/10/19 25 09/09/2024 CMP(C OMPRE HENSI VE METAB OLIC PANEL ) AST 18 units /L 13-39 Not Available [facility] (Lab) [address] [place], [address], 09/10/2024 05:11:12 09/10/19 25 09/09/2024 CMP(C OMPRE HENSI VE METAB OLIC PANEL ) bilirubin, total 0.2 mg/dL 0.2-1. 2 Not Available [facility] (Lab) [address] [place], [address], 09/10/2024 05:11:12 09/10/19 25 09/09/2024 LIPID PANEL ,AMA (LDL- CALC) total cholesterol 266 mg/dL 0-199 high Not Available [facility] (Lab) [address] [place], [address], 09/10/2024 05:11:12 09/10/19 25 09/09/2024 LIPID PANEL ,AMA (LDL- CALC) triglyceride s 233 mg/dL 0-150 high NCEP Refer ence Value s for Trigl yceri haydee: Palmira l: <150 mg/dL Borde rline High: 150 - 199 mg/dL High: 200 - 499 mg/dL Very High: >/= 500 mg/dL Not Available [facility] (Lab) [address] [place], [address], 09/10/2024 05:11:12 09/10/19 25 09/09/2024 LIPID PANEL ,AMA (LDL- CALC) HDL cholesterol 69 mg/dL >40 Not Available [facility] (Lab) [address] [place], [address], 09/10/2024 05:11:12 09/10/19 25 09/09/2024 LIPID PANEL ,AMA (LDL- CALC) LDL cholesterol 158 mg/dL 0-99 high Cutof f value s recom artie d by the Natio nal Ju stero l Educa tion Progr am: FLORENCIA ABLE: Ju stero l <200 mg/dL LDL <100 mg/dL BORDE RLINE : Ju stero l 200-2 39 mg/dL LDL 101-1 59 mg/dL HIGHE R RISK: Ju stero l >240 mg/dL LDL >160 mg/dL , HDL <40 mg/dL Not Available [facility] (Lab) [address] [place], [address], 09/10/2024 05:11:12 09/10/19 25 09/09/2024 LIPID PANEL ,AMA (LDL- CALC) non-HDL cholesterol 197 mg/dL no refere nce range A reaso nable goal for non-H DL ju stero l is one that is 30 mg/dL highe r than the LDL ju stero l goal. Not Available [facility] (Lab) [address], [place], [address], 09/10/2024 05:11:12 09/10/19 25 09/09/2024 LIPID PANEL ,AMA (LDL- CALC) chol/HDL ratio 3.9 . 0.0-5. 0 On September 12, 2022, [facility] labor atori aurora schulte ed the equat ion for calcu latin g estim ated low-d ensit y lipop rotei n-cho leste rol (LDL- C) from the Fried fito equat ion to the Ivette carrie/Hop michael equat ion. This new equat ion is only valid for lipid panel s with trigl yceri haydee < 400 mg/dL . Cleoi es have demon cally ed that this new equat ion will impro ve the accur acy of LDL-C , espec ially in scena zelaya when LDL-C gordo ntrat ions are relat ively low (< 100 mg/dL ), trigl yceri haydee are eleva esa, or patie nt is non-f astin g. Refer ences : - Ivette butler, Jaren Wilkinson, Gus Nguyen , [facility] eladio golden, Benoit Romero, Benoit arroyo, [facility] , and David Rosas . 2013. Comp ariso n of a Novel Metho d vs the Fried fito Equat ion for Estim ating Low-D ensit y Lipop rotei n Ju stero l Level s from the Stand tish Lipid Profi le. TARAN: The Journ al of the Ameri can Medic al Assoc iatio n 310 19): 2060- . - Oskar jade V, Laya Platt, Edwige Pond, Jasen M, Kaylee e R, Yaa ar E, Jose De Jesus neil RS, Rosas SR, Ivette n SS. Fast ing Versu s Nonfa sting and Low-D ensit y Lipop rotei n Ju stero l Accur acy. Corneliou hector n. 2017May 22;137 (1):1 0-19. Not Available [facility] (Lab) [address] [place], [address], 09/10/2024 05:11:12 09/10/19 25 09/09/2024 CHRISTOPHER TIN / IRON / TRANS CHRISTOPHER N / TIBC iron 84 ug/dL 40-170 Not Available [facility] (Lab) [address] [place], [address], 09/10/2024 05:11:12 09/10/19 25 09/09/2024 CHRISTOPHER TIN / IRON / TRANS CHRISTOPHER N / TIBC transferrin 404 mg/dL 200-36 0 high Not Available [facility] (Lab) [address] [facility], [place], [address], 09/10/2024 05:11:12 09/10/19 25 09/09/2024 CHRISTOPHER TIN / IRON / TRANS CHRISTOPHER N / TIBC ferritin 7.0 NG/mL 8.0-25 2.0 low Not Available [facility] (Lab) [address] [place], [address], 09/10/2024 05:11:12 09/10/19 25 09/09/2024 CHRISTOPHER TIN / IRON / TRANS CHRISTOPHER N / TIBC TIBC 566 ug/dL 250-45 0 high Not Available [facility] (Lab) [address] [place], [address], 09/10/2024 05:11:12 09/10/19 25 09/09/2024 CHRISTOPHER TIN / IRON / TRANS CHRISTOPHER N / TIBC iron saturation 15 % 20-55 low Not Available [facility] (Lab) [address] [place], [address], 09/10/2024 05:11:12 09/10/19 25 09/09/2024 VITAM IN B12 / FOLAT E PANEL vitamin B12 231 pg/mL 180-91 4 Palmira l Range : 180-9 14 pg/mL . Indet ermin ate Range : 145-1 80 pg/mL . Defic ient Range : <=145 pg/mL . Not Available [facility] (Lab) [address] [facility], [place], [address], 09/10/2024 05:11:13 09/10/19 25 09/09/2024 VITAM IN B12 / FOLAT E PANEL folate, serum 19.1 NG/mL 6.0-20 .0 Not Available [facility] (Lab) [address] [facility], [place], [address], 09/10/2024 05:11:13 10/11/19 25 10/10/2024 CULTU RE: GROUP B STREP SCREE N, REFLE X SUSCE PTIBI LITY result report SEE RESULT S BELOW Test: Cultu re: Group B Strep , Refle x Susce ptibi lity ([facility] ) Speci men Sourc e: Vagin a/Rec gabino Speci men Type: Vagin al/Re ctal Speci men Date: 2024 1558 Resul t Date: 2024 1408 Resul t Statu s: Final resul t Abnor mal: No Resul ting Lab: [facility] [address] [facility] [address] Tel: CULTU RE ----- ----- ----- --- No Group B strep isola esa at 2 days (carola ctive broth enhan cemen t) Not Available [facility] (Lab) [address] [facility], [place], [address], 10/13/2024 15:11:57 09/04/19 25 09/03/2024 US, obste tric, follo w-up No observ ation record ed. [email or web address] [address], [place], [address], 09/03/2024 15:22:47 09/04/19 25 09/03/2024 US, obste tric, follo w-up No observ ation record ed. [email or web address] [address], [place], [address], 09/09/2024 14:48:34 10/11/19 25 10/10/2024 US, obste tric, follo w-up No observ ation record ed. [email or web address] [address], [place], [address], 10/15/2024 21:57:54 10/11/19 25 10/10/2024 US, obste tric, follo w-up No observ ation record ed. [email or web address] [place] [address], [place], [address], 10/10/2024 17:57:30 Result Notes None recorded. Problems Name Problem SNOMED Code Status Onset Date Resolution Date Notes Provider Name and Address Organization Details Recorded Time History of bariatric surgical procedure 315611486 Active check labs [facility] referral faxed 05/08 [place] location scheduled 06/11/24 145 Level II US and OV 07/07 945 for US Checking BS QID Anesthesi ology consult in 3rd trimest -schedule with pre -admit appt Monitor labs per MFM CMP/ lipid panel , Anemia panel , parathyro id hormone Doris pineda, [facility] 5 15:20:01 34037096 Active 2023 Kasia pineda, [facility] 4 12:03:45 Atypical squamous cells of undetermi medina significa nce Active +HPV, colpo scheduled Deepa Cleary, G[facility] [address], [place], [address], [facility] 4 12:13:59 History of bariatric surgical procedure 578562292 Active check labs [facility] referral faxed 05/08 [place] location scheduled 06/11/24 145 Level II US and OV 07/07 945 for US Checking BS QID Anesthesi ology consult in 3rd trimest -schedule with pre -admit appt Monitor labs per MFM CMP/ lipid panel , Anemia panel , parathyro id hormone Doris Minor miriam [facility] 5 15:20:01 History of surgery 652897470 Active low back, no rods Anesthesi ology consult in 3rd trimester recommend ed per [facility] Doris Minor miriam [facility] 5 08:55:15 History of Spinal surgery 566703816 Active 2024 Kasia Goff [facility] 5 10:33:52 Notes:history back surgery Problem Notes None recorded. Procedures Surgical History Date Name Laterality Status Provider Name and Address Organization Details Recorded Time 05/02/20 24 Colposcopy completed BELIA BELLAMY MD [address], [place], [address], [facility] 05/02/2024 14:29:30 05/02/20 24 Colposcopy completed Kasia Goff [facility] 05/02/2024 19:53:36 05/02/20 24 Colposcopy completed Kasia Goff [facility] 05/02/2024 19:54:27 03/26/20 24 Date of Last Pap Smear completed Kasia Goff [facility] 03/26/2024 16:28:22 11/19/19 22 procedure on back completed Kasia Goff [facility] 03/26/2024 16:30:10 07/20/19 22 Bariatric Surgery completed Kasia Goff [facility] 03/26/2024 16:18:49 Imaging Results None recorded. Procedure Notes None recorded. Medical Equipment None [...] completed Not Available Not Available Not Available ondansetron 4 mg disintegrat ing tablet LET 1 TABLET DISSOLVE UNDER THE TONGUE EVERY 8 HOURS NEEDED FOR NAUSEA AND VOMITING 09/09 completed Not Available Not Available Not Available doxycycline hyclate 100 mg tablet TAKE 1 TABLET BY MOUTH TWICE A DAY FOR 7 DAYS 03/26 completed Not Available Not Available Not Available dicyclomine 10 mg capsule TAKE 1 CAPSULE BY MOUTH TWICE A DAY NEEDED FOR ABDOMINAL PAIN 09/09 completed Not Available Not Available Not Available azithromyci n 500 mg tablet TAKE 2 TABLETS BY MOUTH ONE TIME 03/26 completed Not Available Not Available Not Available nitrofurant oin monohydrate /macrocryst als 100 mg capsule TAKE 1 CAPSULE BY MOUTH EVERY 12 HOURS FOR 5 DAYS. TAKE WITH MEAL/FOOD 03/26 completed Not Available Not Available Not Available OneTouch Verio test strips USE TO TEST 4 TIMES A DAY (FASTING AND 1 HOUR PAST BREAKFAST LUNCH AND DINNER) 09/09 completed Not Available Not Available Not Available OneTouch Verio Flex Meter USE TO TEST DAILY 09/09 completed Not Available Not Available Not Available OneTouch Delica Plus Lancet 33 gauge USE TO TEST 4 TIMES A DAY (FASTING & 1 HOUR AFTER BREAKFAST LUNCH AND DINNER) 09/09 completed Not Available Not Available Not Available Vitals Date Recorded Body height Body mass index (BMI) Body weight Systolic blood pressure Diastolic blood pressure Provider Name and Address Organization Details Last Updated DateTime 09/25/2024 160.02 cm 34.2 kg/m2 77738.33 g 109 mm[Hg] 71 mm[Hg] Kasia Goff [facility] 5 10:32:38 Date Recorded Body weight Body mass index (BMI) Body height Systolic blood pressure Diastolic blood pressure Provider Name and Address Organization Details Last Updated DateTime 10/10/2024 60100.28 926 g 35.1 kg/m2 160.02 cm 124 mm[Hg] 77 mm[Hg] Kasia Goff [facility] 5 15:49:20 Date Recorded Body height Body mass index (BMI) Body weight Systolic blood pressure Diastolic blood pressure Provider Name and Address Organization Details Last Updated DateTime 10/17/2024 160.02 cm 35.3 kg/m2 83007.88 g 133 mm[Hg] 86 mm[Hg] Kasia Goff [facility] 5 11:47:07 Date Recorded Body height Body mass index (BMI) Body weight Systolic blood pressure Diastolic blood pressure Provider Name and Address Organization Details Last Updated DateTime 10/22/2024 160.02 cm 35.8 kg/m2 29819.66 g 126 mm[Hg] 79 mm[Hg] Kasia Goff [facility] 5 10:28:08 Social History Question Answer Notes LastModified by Organizat ion Details LastModified Time Tobacco Smoking Status Never Smoker Kasia Goff [facility] 03/26/2024 16:29:51 If You Are , What Was Your Level Of Alcohol Consumption Prior To ? Occasional [email or web address] Information not available 03/26/2024 How Many Years Have You Consumed Alcohol? 2 [email or web address] Information not available 03/26/2024 Are You Blind Or Do You Have Difficulty Seeing? No [email or web address] Information n ot available 03/26/2024 What Is Your Level Of Caffeine Consumption? Moderate Information not available 03/26/2024 How Much Tobacco Do You Chew? None [email or web address] Information not available 03/26/2024 In The 14 Days Before Symptom Onset, Have You Had Close Contact With A Laboratory-confirm ed COVID-19 While That Case Was Ill? No [email or web address] Information n ot available 03/26/2024 In The 14 Days Before Symptom Onset, Have You Had Close Contact With A Person Who Is Under Investigation For COVID-19 While That Person Was Ill? No [email or web address] Information not available 03/26/2024 Have You Been To An Area Known To Be High Risk For COVID-19? No [email or web address] Information not available 03/26/2024 Are You Deaf Or Do You Have Serious Difficulty Hearing? No [email or web address] Information not available 03/26/2024 What Type Of Diet Are You Following? REGULAR [email or web address] Information n ot available 03/26/2024 What Is The Highest Grade Or Level Of School You Have Completed Or The Highest Degree You Have Received? [id number] [email or web address] Information not available 03/26/2024 Are There Any Guns Present In Your Home? No [email or web address] Information not available 03/26/2024 Do You Use Protection During Sex? No [email or web address] Information not available 03/26/2024 Do You Use Your Seat Belt Or Car Seat Routinely? Yes [email or web address] Information not available 03/26/2024 Are You Sexually Active? Yes [email or web address] Information not available 06/03/2024 Do You Have Smoke And Carbon Monoxide Detectors In Your Home? Yes [email or web address] Information not available 03/26/2024 How Much Tobacco Do You Smoke? No Information not available 03/26/2024 Do You Use Sunscreen Routinely? No [email or web address] Information not available 03/26/2024 Has Tobacco Cessation Counseling Been Provided? No [email or web address] Information not available 03/26/2024 Have You Used IV Drugs? No [email or web address] Information not available 03/26/2024 Do You Have Difficulty Walking Or Climbing Stairs? No [email or web address] Information not available 03/26/2024 Sex: Unknown Functional Status Question Answer Note LastModified by Organizat ion Details LastModified Time Do you use any illicit or recreational drugs? No [email or web address] Information not available 03/26/2024 Do you or have you ever used any other forms of tobacco or nicotine? No [email or web address] Information not available 03/26/2024 What is your level of alcohol consumption? None [email or web address] Information not available 03/26/2024 Are you able to walk? YESWOREST Information not available 03/26/2024 Are you able to care for yourself? 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 No [email or web address] Information not available 03/26/2024 What is your exercise level? Moderate [email or web address] Information not available 03/26/2024 Mental Status Question Answer Note LastModified by Organization D etails LastModified Time Do you feel stressed (tense, restless, nervous, or anxious, or unable to sleep at night)? [id number] [email or web address] Information not available 03/26/2024 Family History Relationship Description Onset Age of this Age Resolved Age Notes LastModified by Organization Details LastModified Time Unspecified Relation Family history unknown [email or web address] Not available 03/26 16:18:49 Medical History Condition Response Allergies (Food, seasonal, environmental ) N Other N Drug/Latex Allergies/Reactions N Blood Transfusion N Breast Cancer N Dermatologic Disorders N Lung Disease N Defects or Inherited Disease N Breast Problem N Gestational Diabetes N Hematologic disorders N Anesthesia Complications N History of STI N Deep Vein Thrombosis N Polycystic ovary syndrome N Anxiety Disorder N Autoimmune disease N Arthritis N Polyps N Infertility N Acid Reflux (GERD) N History of abnormal pap N Cancer N Varicosities N Stroke N Neurologic/Epilepsy Y Endometriosis N High Cholesterol N Fibromyalgia N Headaches N Kidney Disease N Heart Problems N Thyroid Problems N Kidney or Bladder Problems N GI Problems Y Eating Disorder [...] SNOMED-CT Code Diagnosis ICD10 Code Diagnosis Note [id number] Serge Jacobson MD [place] [address] [address] 03/26/2024 15:15:28 03/26/2024 16:06:04 [id number] [facility] [address],[place] [address] 03/26/2024 15:19:21 03/26/2024 17:09:01 Gynecologic examination 99310567 Z01.419 pap collectedm iralax for constipati ontylenol or excedrin tension okreviewed education and precaution splan new ob and first look in 5 weeks with NIPTreview ed us, subchorion ic hemorrhage [id number] Serge Jacobson MD [place] [address],[place] [address] 04/30/2024 14:50:50 04/30/2024 15:32:37 screening 730540260 Z36.82 Z3A.12 [id number] Deepa Cleary [facility] [address],[place] [address] 04/30/2024 14:52:47 05/03/2024 07:13:47 Gestation period, 12 weeks 71206379 Z3A.12 Routine an tenatal care 374364992 Z34.90 [id number] BELIA BELLAMY MD [place] [address],[place] [address] 05/02/2024 13:47:26 05/02/2024 14:53:03 Atypical squamous cells of undetermined significance on cervical Papanicolaou smear 588728163 R87.610 - Colposcopy performed, patient tolerated well- recommend repeat pap Human gunjan llomavirus deoxyribonucleic acid detected, high risk on cervical specimen [id number] R87.810 [id number] BELIA BELLAMY MD [place] [address],[place] [address] 06/03/2024 17:18:29 06/03/2024 18:14:12 History of bariatric surgical procedure 531088616 Z98.84 - MFM referral sent, scheduled Gestation period, 17 weeks 20229931 Z3A.17 - continue PNV [id number] Deepa Cleary CNM [place] [address],[place] [address] 06/25/2024 15:46:02 06/25/2024 16:36:40 Gestation period, 20 weeks 59131890 Z3A.20 continue vitamin [id number] BELIA BELLAMY MD [place] [address],[place] [address] 07/25/2024 14:49:13 07/25/2024 15:19:30 History of bariatric surgical procedure 432586768 Z98.84 - MFM referral completed- repeat growth at 32 weeks- glucose check supplies sent out Gestation period, 24 weeks 219168326 Z3A.24 - continue pNV [id number] Deepa Cleary CNM [place] [address],[place] [address] 08/22/2024 13:58:17 08/22/2024 14:33:36 Gestation period, 28 weeks 18953343 Z3A.28 continue vitamin [id number] Serge Jacobson MD [place] [address],[place] [address] 09/03/2024 14:26:25 09/03/2024 15:20:52 History of bariatric surgical procedure 058229787 Z98.84 Z3A.30 [id number] Deepa Cleary CNM [place] [address],[place] [address] 09/09/2024 12:06:40 09/09/2024 13:15:27 Gestation period, 31 weeks 65079018 Z3A.31 History of bariatric surgical procedure 711243242 Z98.84 Anemia 967765266 D64.9 [id number] Deepa Cleary [facility] [address],[place] [address] 09/25/2024 10:18:12 09/25/2024 11:03:06 Gestation period, 33 weeks 43924569 Z3A.33 [id number] Serge Jacobson MD [place] [address],[place] [address] 10/10/2024 14:12:57 10/14/2024 16:56:11 History of bariatric surgical procedure 473079387 Z98.84 Z3A.35 [id number] Deepa Cleary [facility] [address],[place] [address] 1 10/10/2024 14:13:19 10/10/2024 16:13:26 Gestation period, 35 weeks [id number] Z3A.35 [id number] Deepa Cleary [facility] [address],[place] [address] 10/17/2024 11:21:03 10/17/2024 12:16:54 Gestation period, 36 weeks [id number] Z3A.36 History of bariatric surgical procedure [id number] Z98.84 [id number] Deepa Cleary [facility] [address],[place] [address] 10/22/2024 10:12:43 10/22/2024 10:49:10 Gestation period, 37 weeks [id number] Z3A.37 cont pnv Health Concerns Section Related Observation LastModified by Organization Detai ls LastModified Time None Recorded Concern Status LastModified by Organization Details LastModified Time None Recorded Advance Directives Directive None Recorded Payers Encounter Date Sequence Insurance Name Policy Number Policy Renae Covered Member ID Renae Member ID Guarantor Name 09/25/2024 1 [facility] ON OR AFTER 11/18/20 (MEDICAID REPLACEMENT - HMO) Pat Baum [id number] Pat Baum 10/10/2024 1 [facility] ON OR AFTER 11/18/20 (MEDICAID REPLACEMENT - HMO) Pat Baum [id number] Pat Baum 10/10/2024 1 [facility] ON OR AFTER 11/18/20 (MEDICAID REPLACEMENT - HMO) Pat Baum [id number] Pat Baum 10/17/2024 1 [facility] ON OR AFTER 11/18/20 (MEDICAID REPLACEMENT - HMO) Pat Baum [id number] Pat Baum 10/22/2024 1 [facility] ON OR AFTER 11/18/20 (MEDICAID REPLACEMENT - HMO) Pat Baum [id number] Pat Baum OBGyn Episode Ob Episode Information Episode Created Date Number of Fetuses Patient Bloodtype Patient rh Status Prepregnancy Weight lbs Domestic Partner Domestic Partner Phone Father Name Marketing Assistant Retail Division Status 05/02/20 24 1 O Positive OPEN Fetus Data First Name Last Name Admitted to NICU Weight (g) Sex Living Outcome Pediatric Complications Fetus ID Race Codes Race Delivery Type [id number] Problems Problem Notes Low vit D & A otcRepeat CMP 1wkschedule 32wk us no further us with [facility] no testing unless indicated Problem Name Start Date End Date Resolution Snomed Code Not e History of surgery [id number] l ow back, no rodsAnesthesiology consult in 3rd trimester recommended per [facility] History of bariatric surgical procedure [id number] check labs [facility] referral faxed 05/08 [place] location scheduled 06/11/24 145 Level II US and OV 07/07 945 for USChecking BS QID Anesthesiology consult in 3rd trimest -schedule with pre -admit appt Monitor labs per [facility] CMP/ lipid panel , Anemia panel , parathyroid hormone Atypical squamous cells of undetermined significance [id number] +HPV, colpo taurus eduled Richard Calculation Initial [...] Ultra Sound Latest Days Gestation 0 0 Pre-lianna Flowsheet Flowsheet Date 04/30/2024 Mcallister Score Blood Edema Fundus Height Fundus Units Glucose Ketones Leukocytes Nitrite Labor Signs Protein Cervic Dilation Cervic Effacement Cervic Station neg none none trace Type Weight in lbs Pre/Post Dialysis Refused 162.871361480574 BP Diastolic BP Location Tested BP Systolic [...] Weight in lbs Pre/Post Dialysis Refused Weight 161.756715566965 BP Diastolic BP Location Tested BP Systolic BP Type 73 L arm 118 sitting Fetus Heart Rate Present Fetus Movement Comments Colposcopy, see procedure no te. Flowsheet Date 06/03/2024 Mcallister Score Blood Edema Fundus Height Fundus Units Glucose Ketones Leukocytes Nitrite Labor Signs Protein Cervic Dilation Cervic Effacement Cervic Station neg trace Type Weight in lbs Pre/Post Dialysis Refused 168.403536202949 BP Diastolic BP Location Tested BP Systolic [...] Type Weight in lbs Pre/Post Dialysis Refused 176.993049386893 BP Diastolic BP Location Tested BP Systolic BP Type 75 121 Fetus Heart Rate Present A 130 Present Fetus Movement A Yes Comments Patient states that is havin g some nausea. plan rpt labs today, sees mfm in 2 weeks, occasional movement, looking for a insurance claims analyst f/u here in 4 weeks Flowsheet Date 07/25/2024 Mcallister Score Blood Edema Fundus Height Fundus Units Glucose Ketones Leukocytes Nitrite Labor Signs Protein Cervic Dilation Cervic Effacement Cervic Station neg none Type Weight in lbs Pre/Post Dialysis Refused Weight 184.338532738382 BP Diastolic BP Location Tested BP Systolic BP Type 78 L arm 122 sitting Fetus Heart Rate Present A 140 Fetus Movement A Yes Comments Patient c/o slight nausea. G ood movement, no cramping or bleeding. Last growth US with [facility] 2 weeks ago, EFW 88%, breech. Recommend repeat growth with MW at 32 weeks. Discussed finger sticks and labs for next visit. Flowsheet Date 08/22/2024 Mcallister Score Blood Edema Fundus Height Fundus Units Glucose Ketones Leukocytes Nitrite Labor Signs Protein Cervic Dilation Cervic Effacement Cervic Station neg trace Type Weight in lbs Pre/Post Dialysis Refused Weight 183.728861678502 BP Diastolic BP Location Tested BP Systolic BP Type 87 132 Fetus Heart Rate Present A 145 Present Fetus Movement A Yes Comments Patient is having discharge, swelling, nausea and vomiting. reviewed precautions and education. checking blood sugars x 2 weeks, plan 32 week US +FM f/u 2 weeks Flowsheet Date 09/03/2024 Mcallister Score Blood Edema Fundus Height Fundus Units Glucose Ketones Leukocytes Nitrite Labor Signs Protein Cervic Dilation Cervic Effacement Cervic Station Type Weight in lbs Pre/Post Dialysis Refused BP Diastolic BP Location Tested BP Systolic BP Type Fetus Heart Rate Present Fetus Movement Comments Flowsheet Date 09/09/2024 Mcallister Score Blood Edema Fundus Height Fundus Units Glucose Ketones Leukocytes Nitrite Labor Signs Protein Cervic Dilation Cervic Effacement Cervic Station neg trace 32 cm Type Weight in lbs Pre/Post Dialysis Refused Weight 188.893399808474 BP Diastolic BP Location Tested BP Systolic BP Type 78 122 Fetus Heart Rate Present A 145 Present Fetus Movement A Yes Comments Patient states that is havin g some discharge and swelling. labs today per [facility], reviewed growth, +FM doing well, precautions and education preadmit after 32 weeks Flowsheet Date 09/25/2024 Mcallister Score Blood Edema Fundus Height Fundus Units Glucose Ketones Leukocytes Nitrite Labor Signs Protein Cervic Dilation Cervic Effacement Cervic Station neg trace Type Weight in lbs Pre/Post Dialysis Refused Weight 193.758783099432 BP Diastolic BP Location Tested BP Systolic BP Type 71 109 Fetus Heart Rate Present Fetus Movement A Yes Comments Patient is having some pain, cramping, discharge and swelling. call for preadmit +FM doing well, education and precautions us in 2 weeks Flowsheet Date 10/10/2024 Mcallister Score Blood Edema Fundus Height Fundus Units Glucose Ketones Leukocytes Nitrite Labor Signs Protein Cervic Dilation Cervic Effacement Cervic Station Type Weight in lbs Pre/Post Dialysis Refused BP Diastolic BP Location Tested BP Systolic BP Type Fetus Heart Rate Present Fetus Movement Comments Flowsheet Date 10/10/2024 Mcallister Score Blood Edema Fundus Height Fundus Units Glucose Ketones Leukocytes Nitrite Labor Signs Protein Cervic Dilation Cervic Effacement Cervic Station neg none Type Weight in lbs Pre/Post Dialysis Refused 198.469815245586 BP Diastolic BP Location Tested BP Systolic BP Type 77 124 Fetus Heart Rate Present Fetus Movement A Yes Comments Patient is having some contr actions, discharge and swelling. efw 51% vtx doing well +FM education and precautions, f/u one week, gbs collected Flowsheet Date 10/17/2024 Mcallister Score Blood Edema Fundus Height Fundus Units Glucose Ketones Leukocytes Nitrite Labor Signs Protein Cervic Dilation Cervic Effacement Cervic Station neg trace Type Weight in lbs Pre/Post Dialysis Refused Weight 199.897059340565 BP Diastolic BP Location Tested BP Systolic BP Type 86 133 Fetus Heart Rate Present Fetus Movement A Yes Comments Patient is having some pain, contractions, discharge, swelling and nausea. +FM cervix FT/thick/soft, US for FHR 148 by cnm, labor precautions f/u one week Flowsheet Date 10/22/2024 Mcallister Score Blood Edema Fundus Height Fundus Units Glucose Ketones Leukocytes Nitrite Labor Signs Protein Cervic Dilation Cervic Effacement Cervic Station neg trace 1cm 40% Type Weight in lbs Pre/Post Dialysis Refused Weight 202.411771346522 BP Diastolic BP Location Tested BP Systolic BP Type 79 126 Fetus Heart Rate Present A 150 Present Fetus Movement A Yes Comments Patient is having back pain, contractions, discharge, swelling and nausea. +FM labor precautions, f/u one week Menstrual History Last Menstrual Date Menses Monthly [...]
--- OUTSIDE RECORDS SUMMARY | 2024-10-28 21:37 | XMS_ITS | Clinical Summary ---
Author Organization [facility] Address [address] [place] [address] Care Team Providers Care Incident Response Specialist Name Role Phone Arleth Kyle MD Primary Care Provider [phone] Source Comments [facility],non-owned Affiliates and Associated Physician Practices is amultiple site organization consisting of ambulatory clinics and hospital sitesin [place], [place], [place] and [place]. This disclosure is being madepursuant to the Care Everywhere program and may not contain all information available regarding this patient. Last updated 18.[facility] Allergies No known active allergies Medications * Be aware that medications may not be up to date on this document. Alwaysverify current medications with the patient. Vit-DSS-Fe Fum-FA ( vitamin with iron) tabletIndicatio ns: Take 1 (one) tablet by mouth once daily Reasons: Active calcium carbonate-vitam in D 600-400 MG-UNIT tablet Take 1 (one) tablet by mouth 1 (one) time Active vitamin A 2400 MCG (8000 UT) capsule Take 1 (one) capsule by mouth once daily Patient takes 2400 mcg of the [place] brand vitamin A. Active Family History Medical History Relation Name Comments [...] Recorded Sex Assigned at Not on file Legal Sex Female 12:17 PM PRODUCTION CONTROL MANAGER Gender Identity Not on file Sexual Orientation Not on file Last Filed Vital Signs Vital Sign Reading Time Taken Comments Blood Pressure 117/54 06/11/2024 2:42 PM PRODUCTION CONTROL MANAGER Pulse 67 06/11/2024 2:42 PM PRODUCTION CONTROL MANAGER Temperature 36.9 C (98.4 F) 08/25/2011 1:21 AM CDT Respiratory Rate 20 08/25/2011 1:21 AM CDT Oxygen Saturation 100% 08/24/2011 11:45 PM CDT Inhaled Oxygen Concentration - - Weight 78 kg (172 lb) 06/11/2024 2:42 PM PRODUCTION CONTROL MANAGER Height 160 cm (5' 3) 06/11/2024 2:58 PM PRODUCTION CONTROL MANAGER Body Mass Index 30.47 06/11/2024 2:42 PM PRODUCTION CONTROL MANAGER Plan of Treatment Health Maintenance Due Date Last Done Comments HPV VACCINE (1 - 3-dose series) 12/17/2015 MENINGOCOCCAL (Group B) VACCINE SHARED DECISION-MAKING (1 of 2 - Standard) 2016 HEPATITIS C SCREENING 12/12/2018 DTAP/TDAP/TD VACCINES (1 - Tdap) 12/17/2019 HEPATITIS B VACCINE (1 of 3 - 19+ 3-dose series) 12/17/2019 COVID-19 VACCINE (1 - 2023-2 5 season) 2024 DEPRESSION SCREENING 05/21/2024 OB-ONE HOUR GLUCOSE 08/03/2024 OB-TDAP CURRENT 08/10/2024 02/19/2012 OB-RHOGAM INJECTION 08/17/2024 OB-GROUP B STREP SCREEN 10/05/2024 INFLUENZA VACCINE (Season Ended) 2025 02/15/2018, 07/05/2010, 04/21/2005 CHLAMYDIA/GONORRHEA SCREENING 03/26/2025 03/26/2024 PAP SMEAR 03/26/2027 03/26/2024, 03/26/2024 ZOSTER VACCINE (1 of 2) 2050 [...] over 60 yrs (No Doses Required) [place] [address] [facility] Care Teams Incident Response Specialist Relationship Specialty Start Date End Date Arleth Kyle MD [address] [facility] [address] [place] [id number] PCP - General 02/01/11
[2024-10-28 22:11] LABS: Basophils Percent Auto 0.2 % (0.2-1.2); Eosinophils Absolute Auto 0.1 K/mm3 (0-0.3); Eosinophils Percent Auto 1.2 % (0-4.4); Hematocrit 37.5 % (37.0-47.0); Hemoglobin 12.1 g/dL (12.0-15.0); Immature Granulocyte Absolute 0.08 K/mm3 (0.00-0.031); Immature Granulocyte Percent A 0.8 % (0-0.5); Lymphocytes Percent Auto 19.9 % (18.3-44.2); Mean Corpuscular HGB Conc 32.3 g/dl (32-36); Mean Corpuscular Hemoglobin 27.8 pg (26-34); Mean Platelet Volume 11.6 fl (7.4-10.4); Monocytes Absolute Auto 0.7 K/mm3 (0.1-0.6); Monocytes Percent Auto 6.7 % (2.6-8.5); Neutrophils Absolute Auto 7.5 K/mm3 (1.3-6.7); Neutrophils Percent Auto 71.2 % (45.5-73.1); Platelet Count Result 206 k/mm3 (150-375); Red Blood Count 4.36 M/mm3 (4.2-5.4); Red Cell Distribution Width 13.7 % (11.5-14.5); White Blood Count 10.5 K/mm3 (4.5-10.0)
[2024-10-28 22:23] LABS: Add Urine Microscopic? YES; Appearance Urine Clear (Clear); Bacteria Urine None Seen /hpf; Bilirubin Urine Negative (Negative); Blood Urine Negative (Negative); Color Urine Yellow (Yellow); Glucose Urine UA 2+ mg/dL (Negative); Ketones Urine Trace mg/dL (Negative); Leukocyte Esterase Ur Negative LEU/UL (Negative); Need Manual Microscopic Reviewed; Nitrate Urine Negative (Negative); Non Pathogenic Casts 0-2; Protein Urine Trace mg/dL (Negative); RBC Urine 0-2 /hpf (0-2); Specific Grav Ur 1.029 (1.001-1.035); Squamous Epithelial Cell Urine Few /hpf (Few); Urobilinogen Urine 0.2 mg/dL (<2.0); pH Urine 6.5 (5.0-9.0)
[2024-10-28 22:24] LABS: Alanine Aminotransferase 21 U/L (6-35); Albumin Level 3.7 g/dL (3.5-5.1); Alkaline Phosphatase 144 U/L (38-126); Anion Gap 9 mmol/L (4-12); Aspartate Amino Transferase 31 U/L (14-36); Bilirubin,Total 0.2 mg/dL (0.2-1.3); Blood Urea Nitrogen 11 mg/dL (7-17); Calcium 9.3 mg/dL (8.4-10.2); Carbon Dioxide 17 mmol/L (22-30); Chloride 108 mmol/L (98-107); Estimated Glomerular Filt Rate > 60; Glucose 126 mg/dL (65-110); Potassium 3.8 mmol/L (3.4-5.0); Sodium 134 mmol/L (137-145); Total Protein 6.7 g/dL (6.3-8.2); Uric Acid 5.5 mg/dL (2.5-7.5)
[2024-10-28 22:28] LABS: Total Protein Urine Random 8 mg/dL; Ur Ttl Prot Creatinine Ratio 0.06 mg/mg (0-0.20)
[2024-10-28] MEDS: diphenhydrAMINE HCl CAP 25 MG CAPSULE PO (22:42)
[2024-10-28] MEDS: METOCLOPRAMIDE HCL 10 MG TABLET PO (22:42)
== END 2024-10-28 22:30 | disposition home or self-care (01) ==
LOC: ANHOBOP 21:34 → ANHLDR 21:36
PROVIDERS: Obstetrics & Gynecology; Visit Provider Advanced Practice Midwife
DX: O12.00 Gestational edema, unspecified trimester (principal); O26.899 Other specified pregnancy related conditions, unspecified trimester; R51.9 Headache, unspecified; Z3A.00 Weeks of gestation of pregnancy not specified
CPT/HCPCS: 36415; 59025; 80053; 81001; 82570; 84156; 84550; 85025; 87086; 99199; A9270

== ENCOUNTER 2024-10-29 11:59 | Inpatient (IN) | payer OTHER, SELFPAY ==
[2024-10-29] VITALS (41 sets, daily range): BP systolic 100–140; BP diastolic 43–112; PULSE 59–191; RESP 18–20; TEMP 36.6–36.9; BMI 36.5
--- NOTE | ~2024-10-29 | US_ITS ---
EXAMINATION: US OB BPP wo non-stress DATE: 10/29/2024 11:59 INDICATION: Chest amniotic fluid index and biophysical profile for variable cardiac deceleratio ns. TECHNIQUE: Real-time pelvic ultrasound was performed. The interpreting radiologist was not present fo r the study. COMPARISON: 03/12/2024 FINDINGS: There is a single living fetus in vertex presentation. The placenta is anterior central 2.8 x 1.0 cm anechoic venous malone. heart rate is 139 beats per minute (bpm). Oligohydramnios with amniotic fluid index of 4.9 cm (5th%-95%: 6.5-26.3 cm at 38 weeks estimated gestational age). Biophysical profile performed by the technologist: breathing (30 sec sustained breathing in 30 minutes): 2 out of 2 movement (3 gross body movements in 30 minutes): 2 out of 2 tone (one episode of dhvqafz-zefpoqkzx-vfurvbq limb movement): 2 out of 2 Amniotic fluid pocket (2 cm): 2 out of 2 Total score: 8 out of 8 IMPRESSION: 1. Single living fetus in vertex presentation with heart rate of 139 bpm. 2. Biophysical profile 8 out of 8. 3. Oligohydramnios with decreased amniotic fluid index of 4.9 cm. Reviewed, dictated and finalized at location A.
[2024-10-29] MEDS: ACETAMINOPHEN/BUTALBITAL/CAFFEINE 325-50-40 MG TABLET (FIORICET) 1 TAB PO (10:31)
[2024-10-29 10:35] LABS: Basophils Percent Auto 0.2 % (0.2-1.2); Eosinophils Absolute Auto 0.1 K/mm3 (0-0.3); Hematocrit 35.7 % (37.0-47.0); Hemoglobin 11.6 g/dL (12.0-15.0); Immature Granulocyte Absolute 0.06 K/mm3 (0.00-0.031); Immature Granulocyte Percent A 0.7 % (0-0.5); Lymphocytes Absolute Auto 1.41 K/mm3 (0.9-3.2); Lymphocytes Percent Auto 16.3 % (18.3-44.2); Mean Corpuscular HGB Conc 32.5 g/dl (32-36); Mean Corpuscular Hemoglobin 27.7 pg (26-34); Mean Corpuscular Volume 85.2 fl (80-100); Mean Platelet Volume 11.3 fl (7.4-10.4); Monocytes Absolute Auto 0.6 K/mm3 (0.1-0.6); Monocytes Percent Auto 7.4 % (2.6-8.5); Neutrophils Absolute Auto 6.5 K/mm3 (1.3-6.7); Neutrophils Percent Auto 74.4 % (45.5-73.1); Platelet Count Result 181 k/mm3 (150-375); Red Blood Count 4.19 M/mm3 (4.2-5.4); Red Cell Distribution Width 13.8 % (11.5-14.5); White Blood Count 8.7 K/mm3 (4.5-10.0)
[2024-10-29 10:39] LABS: Add Urine Microscopic? YES; Appearance Urine Clear (Clear); Bacteria Urine None Seen /hpf; Bilirubin Urine Negative (Negative); Blood Urine Negative (Negative); Color Urine Yellow (Yellow); Glucose Urine UA Negative (Negative); Ketones Urine Negative (Negative); Leukocyte Esterase Ur Trace LEU/UL (Negative); Nitrate Urine Negative (Negative); Non Pathogenic Casts 0-2; Protein Urine Negative (Negative); RBC Urine 0-2 /hpf (0-2); Specific Grav Ur 1.014 (1.001-1.035); Squamous Epithelial Cell Urine None Seen /hpf (Few); Urobilinogen Urine 0.2 mg/dL (<2.0); WBC Urine 0-5 /hpf (0-3); pH Urine 7.5 (5.0-9.0)
--- OUTSIDE RECORDS SUMMARY | 2024-10-29 10:40 | XMS_ITS | Clinical Summary ---
Author Organization [facility] Address [address] [place] [address] Care Team Providers Care Clay Stain Mixer Name Role Phone Arleth Kyle MD Primary Care Provider [phone] Source Comments [facility],non-owned Affiliates and Associated Physician Practices is amultiple site organization consisting of ambulatory clinics and hospital sitesin [place], [place], [place] and [place]. This disclosure is being madepursuant to the Care Everywhere program and may not contain all information available regarding this patient. Last updated 18.[facility] Allergies No known active allergies [...] daily Patient takes 2400 mcg of the [place] brand vitamin A. 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 Gender Identity Not on file Sexual Orientation Not on file Last Filed Vital Signs Vital Sign Reading Time Taken Comments Blood Pressure 117/54 06/11/2024 2:42 PM WASH DRILLER HELPER Pulse 67 06/11/2024 2:42 PM WASH DRILLER HELPER Temperature 36.9 C (98.4 F) 08/25/2011 1:21 AM CDT Respiratory Rate 20 08/25/2011 1:21 AM CDT Oxygen Saturation 100% 08/24/2011 11:45 PM CDT Inhaled Oxygen Concentration - - Weight 78 kg (172 lb) 06/11/2024 2:42 PM WASH DRILLER HELPER Height 160 cm (5' 3) 06/11/2024 2:58 PM WASH DRILLER HELPER Body Mass Index 30.47 06/11/2024 2:42 PM WASH DRILLER HELPER Plan of Treatment Health Maintenance Due Date [...] 60 yrs (No Doses Required) [place] [address] [facility] Care Teams Clay Stain Mixer Relationship Specialty Start Date End Date Arleth Kyle MD [address] [facility] [address] [place] [id number] PCP - General 02/01/11
[2024-10-29 10:50] LABS: Alanine Aminotransferase 20 U/L (6-35); Albumin Level 3.4 g/dL (3.5-5.1); Alkaline Phosphatase 119 U/L (38-126); Anion Gap 5 mmol/L (4-12); Aspartate Amino Transferase 29 U/L (14-36); Bilirubin,Total 0.2 mg/dL (0.2-1.3); Blood Urea Nitrogen 7 mg/dL (7-17); Calcium 9.1 mg/dL (8.4-10.2); Carbon Dioxide 20 mmol/L (22-30); Chloride 108 mmol/L (98-107); Estimated CRCL calculation 137 ml/min; Estimated Glomerular Filt Rate > 60; Glucose 95 mg/dL (65-110); Sodium 133 mmol/L (137-145); Total Protein 6.3 g/dL (6.3-8.2); Uric Acid 5.5 mg/dL (2.5-7.5)
--- NOTE | 2024-10-29 11:05 | PC.NURSE ---
Jaja Cleary CNM walked through the unit and reviewed earlier monitor tracing with variable decels. Order received for BPP and JARRELL.
[2024-10-29 11:20] LABS: Creatinine Urine 66.3 mg/dL; Total Protein Urine Random 9 mg/dL; Ur Ttl Prot Creatinine Ratio 0.14 mg/mg (0-0.20)
--- NOTE | 2024-10-29 11:59 | PC.NURSE ---
Jaja Cleary CNM informed headache much improved. BPP /, but JARRELL is only 4.86. Order received to change to inpatient. After pt eats, check pt's cervix and call for induction of labor orders.
--- NOTE | 2024-10-29 13:45 | LDADM ---
This patient, Pat Baum, was admitted to Labor/Delivery/Recovery 102 on 10/29/24 at 11:59. Plans for labor, pain management and were discussed with patient. Patient/family oriented to hospital policies and general routines including ID bracelet, bed and alarms, visiting hours, pain management, procedures, bathroom and other care routines, personal items, smoking policy, room service/diet and guest tray routines, infant security routines, and visiting hours. Patient/Family are encouraged to report perceived risks to care and to ask questions if they do not understand what they are told or what they should do. See OBIX for further documentation.
[2024-10-29] MEDS: miSOPROStol 25 MCG TABLET 50 MCG BUCCAL (14:22)
[2024-10-29 14:58] LABS: HIV 1/2 Ab P24 Ag Result Negative (Negative); Syphilis IgG/IgM Antibody Non-Reactive (Nonreactive)
[2024-10-29] MEDS: miSOPROStol 25 MCG TABLET 50 MCG BY MOUTH (19:04)
--- NOTE | 2024-10-29 19:18 | WPDOBADMIT ---
Obstetrics - Admit Note Admission Note: record reviewed. No pertinent additions to the history and/or any subsequent changes in the physical findings that are not consistent with the expected course of the were found. Additions to the history and/or subsequent changes in the physical findings follow. admit for oligohydramnios
--- NOTE | 2024-10-29 23:08 | PC.NURSE ---
Called Jaja Cleary CNM for pitocin orders, start at 6 milliunits an hour and go up by 2 milliunits an hour.
[2024-10-29] MEDS: LACTATED RINGERS 1,000 ML 125 ML IV CONT (23:26)
[2024-10-29] MEDS: OXYTOCIN 30 UNITS/NS 500 ML 30 UNITS/500 ML BAG 6 UNITS IV CONT (23:27)
[2024-10-30] VITALS (119 sets, daily range): BP systolic 79–146; BP diastolic 46–113; PULSE 53–158; RESP 16–18; TEMP 36.1–36.8; O2SAT 95–100
[2024-10-30] MEDS: fentaNYL CITRATE INJ (*CRX) 100 MCG/2 ML VIAL 50 MCG IV PUSH ×2 (01:43→09:57)
[2024-10-30] MEDS: fentaNYL CITRATE INJ (*CRX) 100 MCG/2 ML VIAL IV PUSH ×2 (02:59→05:08)
--- NOTE | 2024-10-30 06:44 | PM.OBPNLAB ---
Pain Control Date/time seen: 10/30/24 06:44 Comments: PEPPER /-2 AROM clear odorless fluid, anticipate vaginal delivery
[2024-10-30] MEDS: LACTATED RINGERS 1,000 ML 125 ML IV CONT ×2 (07:24→09:53)
--- NOTE | 2024-10-30 10:16 | P.PNAN_ITS ---
Anes - Eval Pre Procedure Procedure: Labor epidural Date/Time: 10/30/24 10:16 Surgeon: Kavon Preop Diagnosis: Abdominal pain with contractions Pre Op Diagnosis: pih Patient Data Age: 23 Gender: F Height: 1.6 m Weight: 93.5 kg Last Vital Signs Temp 97.5 F L 10/30/24 08:00 Pulse 63 10/30/24 10:01 Resp 16 10/30/24 04:00 BP 137/66 10/30/24 10:01 O2 Del Method Room Air 10/29/24 13:45 Allergies Allergy/AdvReac Type Severity Reaction Status Date / Time No Known Allergies Allergy Verified 10/29/24 10:04 Home Medications ?Medication ?Instructions ?Recorded ?Confirmed ?Type vit no.95-ferrous 1 tablet PO DAILY 10/10/24 10/29/24 History fumarate 28 mg-folic acid 800 mcg tablet () acetaminophen 500 mg tablet 1,000 mg PO Q6H PRN headache 10/29/24 10/29/24 History calcium 200 mg (as 2 tablet PO DAILY 10/29/24 10/29/24 History citrate)-vitamin D3 6.25 mcg (250 unit) tablet ferrous sulfate 325 mg (65 mg 325 mg PO HS 10/29/24 10/29/24 History iron) tablet,delayed release vitamin A 2,400 mcg capsule 2,400 mcg PO DAILY 10/29/24 10/29/24 History Laboratory Tests 10/29/24 10/29/24 10:23 13:24 WBC 8.7 K/mm3 (4.5-10.0) RBC 4.19 L M/mm3 (4.2-5.4) Hgb 11.6 L g/dL (12.0-15.0) Hct 35.7 L % (37.0-47.0) MCV 85.2 fl (80-100) MCH 27.7 pg (26-34) MCHC 32.5 g/dl (32-36) RDW 13.8 % (11.5-14.5) Plt Count 181 k/mm3 (150-375) MPV 11.3 H fl (7.4-10.4) Immature Gran % (Auto) 0.7 H % (0-0.5) Neut % (Auto) 74.4 H % (45.5-73.1) Lymph % (Auto) 16.3 L % (18.3-44.2) [place] % (Auto) 7.4 % (2.6-8.5) Eos % (Auto) 1.0 % (0-4.4) Baso % (Auto) 0.2 % (0.2-1.2) Lymph # (Auto) 1.41 K/mm3 (0.9-3.2) [place] # (Auto) 0.6 K/mm3 (0.1-0.6) Eos # (Auto) 0.1 K/mm3 (0-0.3) Baso # (Auto) 0.0 K/mm3 (0.0-0.1) Abs Immat Gran (auto) 0.06 H K/mm3 (0.00-0.031) Absolute Neuts (auto) 6.5 K/mm3 (1.3-6.7) Absolute Nucleated RBC 0.000 K/mm3 (0.0-0.012) Nucleated RBC % 0.0 % (0.0-0.2) Sodium 133 L mmol/L (137-145) Potassium 4.0 mmol/L (3.4-5.0) Chloride 108 H mmol/L (98-107) Carbon Dioxide 20 L mmol/L (22-30) Anion Gap 5 mmol/L (4-12) BUN 7 mg/dL (7-17) Creatinine 0.59 L mg/dL (0.7-1.0) Estim Creat Clear Calc 137 ml/min Estimated GFR > 60 (59 - ) Glucose 95 mg/dL (65-110) Uric Acid 5.5 mg/dL (2.5-7.5) Calcium 9.1 mg/dL (8.4-10.2) Total Bilirubin 0.2 mg/dL (0.2-1.3) AST 29 U/L (14-36) ALT 20 U/L (6-35) Alkaline Phosphatase 119 U/L (38-126) Total Protein 6.3 g/dL (6.3-8.2) Albumin 3.4 L g/dL (3.5-5.1) Urine Color Yellow (Yellow) Urine Appearance Clear (Clear) Urine pH 7.5 (5.0-9.0) Ur Specific Lucinda 1.014 (1.001-1.035) Urine Protein Negative mg/dL (Negative) Urine Glucose (UA) Negative mg/dL (Negative) Urine Ketones Negative mg/dL (Negative) Ur Blood (Man) Negative (Negative) Urine Nitrate Negative (Negative) Urine Bilirubin Negative (Negative) Urine Urobilinogen 0.2 mg/dL (<2.0) Leukocyte Esterase Rfl Trace H UMBERTO/UL (Negative) Urine RBC 0-2 /hpf (0-2) Urine WBC 0-5 /hpf (0-3) Ur Squamous Epith Cells None seen /hpf (Few) Urine Bacteria None seen /hpf Urine Casts 0-2 U Random Total Protein 9 mg/dL Urine Creatinine 66.3 mg/dL Protein/Creat Ratio 2 0.14 mg/mg (0-0.20) Syphilis IgG/IgM Ab Non-reactive (Nonreactive) HIV 1&2 Ab/P24 Ag 4thGn Negative (Negative) Blood Type O Positive Antibody Screen Negative : gestational age HCG: positive Patient hx anesthesia problems: none Family hx anesthesia problems: none Results Review: All pre-operative results and documents have been reviewed as part of the pre- operative evaluation. [facility] Past Medical History Medical History Obesity PIH ( induced hypertension) and not yet delivered No significant medical problems Surgical History Surgical History No pertinent past surgical history Family History Family History Other No pertinent family history Social History Social History Smoking status: Never smoker Second hand tobacco smoke exposure: No Substance use: never Do You Feel Safe in your Home?: Yes Lack of Transportation: No Lack of Food: Never True Current Housing: I Have Housing Concerned About Future Housing: No Difficulty Paying Gas/Electric Bills: No Difficulty Paying for Meds: No Currently Unemployed: No Education: High School Diploma/GED Difficulty w/ Childcare or Family Care: No Gender identity (if verbalized by the patient): Female Spiritual care concerns: No Exam Day of Procedure 10/30/24 10:16 Patient weight: obese
--- NOTE | 2024-10-30 15:41 | S_PTH ---
PATIENT: Pat Baum LOC: [facility] U#:[id number] AGE/SX: 23/F ROOM: 284 RE10/29/[address]: Juanjose Lazar MD : 2000 BED: 00 DIS: 11/01/2024 SPEC #: [id number] RECD: 10/31/24 07:48 STATUS: NILESH RESameera #: [id number] ZEB: 10/30/24 15:[address]: Juanjose Lazar DEPT: [facility] RECD BY: Denia Neri ENTERED: 10/31/24 07:48 SP TYPE: Surgical OTHR DR: Serge Jacobson MD BAG FILLER PHYSICIAN Deepa Cleary CNM Tissues: A - Placenta Procedures: Hematoxylin and Eosin Stain Gross and Microscopic Level 5
[2024-10-30] MEDS: OXYTOCIN 30 UNITS/NS 500 ML 30 UNITS/500 ML BAG 125 UNITS IV CONT (16:00)
--- NOTE | 2024-10-30 16:09 | PM.OBPRVD ---
OB - Vaginal Delivery Note Procedure Delivery date: 10/30/24 Events: Gestational Hypertension Induction method: Per Misoprostol Protocol Delivery augmentation: Rupture of Membranes and Pitocin Delivery monitor: External FHT and Internal Uterine Route of delivery: Episiotomy description: None Laceration Description: Perineal - 1st Degree and Labial Delivery repair: vicryl Specimen: No Quantitative Blood Loss (ml): 100 Anesthesia type: Epidural Disposition: Floor Complications: No immediate complications Narrative: See H&P and notes for details on patient's admission and labor. She progressed to complete cervical dilation and at the appropriate time began pushing. With adequate expulsive efforts by the mother, the baby's head was delivered without difficulty. Nuchal cord was not present. The baby's right shoulder was anterior and delivered under the pubic symphysis without difficulty. The posterior shoulder and the rest of the baby delivered without difficulty. The umbilical cord was doubly clamped and cut after 60 seconds of delayed cord clamping. Care of the infant was then assumed by the nursing staff. [place] Baby Date of : 10/30/24 Time of : 15:35 Gestational Age by Date: 38 gender: Male presentation: compound (left hand) position: Left Occiput Anterior Placenta delivery description: Expressed Cord Vessel Description: 3 Vessels and Delayed Cord Clamping
[2024-10-30] MEDS: miSOPROStol 200 MCG TABLET 800 MCG RECTAL (16:45)
[2024-10-30] MEDS: ACETAMINOPHEN 325 MG TABLET 650 MG PO (20:36)
[2024-10-30] MEDS: IBUPROFEN 600 MG TABLET PO (20:37)
[2024-10-31 00:18] VITALS: BP 126/63; PULSE 73; RESP 16; TEMP 36.3; O2SAT 99
[2024-10-31] MEDS: ACETAMINOPHEN 325 MG TABLET 650 MG PO ×2 (05:14→19:41)
[2024-10-31] MEDS: IBUPROFEN 600 MG TABLET PO ×2 (05:14→17:39)
[2024-10-31 05:58] LABS: Hematocrit 32.5 % (37.0-47.0); Hemoglobin 10.4 g/dL (12.0-15.0)
--- NOTE | 2024-10-31 07:28 | P.PNOB_ITS ---
OB - PN: Subj Subjective Date/time seen: 10/31/24 07:28 Interval history: pp day 1 doing well plan d/c home tomorrow OB - PN: Obj Data Labs 10/31/24 04:51 10/29/24 10:23 Labs: Laboratory Results - last 24 hr 10/31/24 04:51 Hgb 10.4 L Hct 32.5 L OB - PN A/P Plan day: 1 Plan: routine care Time Spent With Patient Time: Total time spent is greater than 50% in coordination of care (as documented) at patient's floor/unit and/or counseling patient: Review of Systems 2 Review of Systems: All systems reviewed & are unremarkable except as noted in HPI and below Exam 2 Const: General: cooperative, healthy appearing and comfortable Chest: Chest palpation & inspection: normal inspection of the chest Resp: Effort & Inspection: normal respiratory effort
[2024-10-31 07:50] VITALS: BP 110/62; PULSE 66; RESP 16; TEMP 36.6; O2SAT 100
--- NOTE | 2024-10-31 08:15 | PC.NURSE ---
Patient called out for assistance. Patient states that baby latched at the first feeding after delivery with the nipple shield. She bottle fed last night. She would like to initiate pumping and she would like to attempt again this morning. Baby was place in cross cradle hold on the left breast and we tried to latch without the shield. Baby made a good attempt to latch but mom's areola wrinkles when compressed and she has short shanked nipples. We placed the nipple shield on the breast and baby was able to latch. His bottom lip was rolled in and mom was shown how to pull on his chin to assist with flanging it out. Baby fed off and on for about 5 minutes before coming off the breast. We then moved him to football hold on the right breast. He latched well with the shield, rolling his bottom lip in again. Mom states that the latch feels more painful so we broke suction and tried again. Baby was able to latch easily and mom states that there is not pain. Baby may hold his tongue humped in the back of his mouth at latch on. Educated mom on ways to look for a deep latch, how to stimulate baby to continue suckling when he pauses, and how to check to ensure the entire shield is in baby's mouth throughout the whole feeding. Mom is eager to begin pumping so a hospital pump was provided. She was shown correct flange sizing (21mm) and placement, pump use and settings, and care and cleaning of pump parts. Mom is encouraged to pump ad gabriella today, maybe 3-4 times. Anticipatory guidance given on expected milk production in the immediate period. Use and storage of breast milk discussed. She is supported to supplement baby with formula after if desired. She worries that the formula is too hard on baby's belly and prefers that he get breast milk. Primary RN updated.
[2024-10-31] MEDS: MULTIVIT/MIN/PREN/FOL AC/IRON TABLET 1 TAB PO (08:55)
[2024-10-31] MEDS: DOCUSATE SODIUM 100 MG CAPSULE PO ×2 (08:55→16:27)
[2024-10-31 12:30] VITALS: BP 121/58; PULSE 81; RESP 16; TEMP 36.8; O2SAT 100
--- NOTE | 2024-10-31 14:24 | WPDANLDPN2 ---
Anes-Prog Note L&D Date/Time: 10/31/24 14:24 Comfortable throughout: labor and delivery Neuraxial method: epidural Epidural/Spinal procedure site: clean & non-tender Neuro status: Neuro function grossly intact. Cardiovascular status: normal Respiratory status: normal Airway patency: baseline Mental status: baseline Post-Op hydration status: normal Vital Signs: Last Vital Signs Temp 36.8 C 10/31/24 12:30 Pulse 81 10/31/24 12:30 Resp 16 10/31/24 12:30 BP 121/58 L 10/31/24 12:30 Pulse Ox 100 10/31/24 12:30 O2 Del Method Room Air 10/30/24 19:00 Pain score (VAS): 1 I/O: Intake & Output 10/30/24 10/31/24 10/31/24 23:59 07:59 15:59 Intake Total 500 240 Output Total 423 Balance 77 240 Post-procedural complaints: none Patient feedback: Patient satisfied with anesthetic care.
--- NOTE | 2024-10-31 15:40 | PC.NURSE ---
Patient called out for assistance. She is concerned that baby has not burped after his last feeding. Discussed that some babies burp more than others. We fed baby in the football hold on both breasts with the nipple shield. On the right breast, baby did not latch as well, seeming to hump him tongue against the shield. He latched very well on the left breast and was suckling off and on with some stimulation, swallows noted. Mom is concerned about how much baby is getting from the breast and we discussed ways of knowing he is receiving all he needs. She would like to pump again after this feeding so her breast pump was set up. She is educated on use of small amounts of colostrum for baby. We discussed weaning from the nipple shield and how to continue using it as a tool if needed, accompanied by pumping for stimulation. RN updated.
[2024-10-31 18:20] VITALS: PULSE 79; RESP 16; O2SAT 99
[2024-10-31] MEDS: WITCH HAZEL 40 PADS 1 PAD TOPICAL (19:41)
[2024-10-31 19:45] VITALS: BP 110/62; PULSE 79; RESP 16; TEMP 36.8; O2SAT 99
[2024-11-01] MEDS: ACETAMINOPHEN 325 MG TABLET 650 MG PO (07:28)
[2024-11-01] MEDS: IBUPROFEN 600 MG TABLET PO (07:28)
[2024-11-01] MEDS: DOCUSATE SODIUM 100 MG CAPSULE PO (07:28)
[2024-11-01] MEDS: TETANUS,DIPHTHERIA,AC PERTUSSIS ADULT (0.5 ML) BOOSTRIX IM (07:29)
[2024-11-01] MEDS: MULTIVIT/MIN/PREN/FOL AC/IRON TABLET 1 TAB PO (07:29)
[2024-11-01 07:53] VITALS: BP 113/79; PULSE 71; RESP 14; TEMP 36.6; O2SAT 100
--- NOTE | 2024-11-01 08:46 | P.PNOB_ITS ---
OB - PN: Subj Subjective Date/time seen: 11/01/24 08:46 Interval history: pp day 2 doing well bleeding minimal ready for discharge home today OB - PN: Obj Data Labs 10/31/24 04:51 10/29/24 10:23 OB - PN A/P Assessment and Plan (1) Vaginal delivery: Code(s): O80 - Encounter for full-term uncomplicated delivery Status: Acute Plan day: 2 Plan: routine care and discharge home Time Spent With Patient Time: Total time spent is greater than 50% in coordination of care (as documented) at patient's floor/unit and/or counseling patient: Review of Systems 2 Review of Systems: All systems reviewed & are unremarkable except as noted in HPI and below Exam 2 Const: General: comfortable and no acute distress O rientation/consciousness: patient oriented x3 Resp: Effort & Inspection: normal respiratory effort
--- NOTE | 2024-11-01 08:49 | P.DS_ITS ---
DS: Admitting Diagnosis Discharge Date 11/01/24 Admitting Diagnosis oligohydramnios DS: Discharge Diagnosis Discharge Diagnosis (1) Vaginal delivery: Code(s): O80 - Encounter for full-term uncomplicated delivery Status: Acute OB - DS: Summary OB Procedures : None OB Procedures Intrapartum: Spontaneous Vag Delivery OB Procedures: : None Peripartum Data Laceration Description: Perineal - 1st Degree and Labial Episiotomy description: None Time Spent with Patient Time attestation: Total time spent providing and/or coordinating discharge services: DS: Data Data Completed and Pending Pending studies at discharge: Pending at discharge 10/30/24 15:41 Surgical [PTH] Routine Discharge Plan Discharge Attending physician on discharge: Juanjose Lazar Consulting providers: Deepa Cleary Discharging Clinician: Juanjose Lazar Patient Disposition: Home Activity: may shower and pelvic rest Diet: as tolerated Patient Instructions: Antibiotic Form Patient Language: Yoruba Stand Alone Forms: General Discharge Information Follow-up/Referrals: Deepa Cleary, CNM [Certified Nurse Bin Cleaner] - 4 Weeks Discharge Medications: New docusate sodium 100 mg Capsule 100 mg PO BID PRN (Reason: Constipation) Qty: 60 0RF ibuprofen 600 mg Tablet 600 mg PO Q6H PRN (Reason: Cramping) Qty: 30 0RF Continued ferrous sulfate 325 mg (65 mg iron) tablet,delayed release (DR/EC) 325 mg PO HS vitamin A 2,400 mcg capsule 2,400 mcg PO DAILY calcium citrate-vitamin D3 200 mg-6.25 mcg (250 unit) tablet 2 tablet PO DAILY PNV cmb#95-ferrous fumarate-FA [] 28 mg iron- 800 mcg tablet 1 tablet PO DAILY Discontinued acetaminophen 500 mg tablet 1,000 mg PO Q6H PRN (Reason: headache) Date of admission: 10/29/24 11:59 Primary Care Provider: PHYSICIAN,GRAPHIC ART SALES REPRESENTATIVE Admitting Provider: Serge Jacobson Attending physician on admission: Serge Jacobson Condition: Stable
--- NOTE | 2024-11-01 10:30 | PC.NURSE ---
Reviewed standard discharge information with patient including monitoring for required output, milk production, and follow up at [facility] and with supervisor dog license officer in the first week of life. Parents are encouraged to take the feeding log and continue to track feedings and output for the first week . Offered outpatient resources with [facility] referral (faxed to [facility]) and Services at [facility]. She has a Mom [employer] breast pump at home. She has only bottle fed overnight and has not pumped. She states that it is her intention to try to breastfeed once she's at home. She finds it difficult to breastfeed or pump when she doesn't have a support person to help watch the baby. Encouraged her that practice will help her feel more proficient at multitasking. Patient has the Mom/Baby Guide for further education and reference for common concerns, phone numbers, and guidance on when to call the doctor. A feeding plan was added to the ?s discharge plan. Patient states that she has no further questions or concerns regarding .?
[2024-11-04 09:30] VITALS: BP 138/88; PULSE 75; RESP 20; TEMP 36.8; O2SAT 100
== END 2024-11-01 15:55 | disposition home or self-care (01) | DRG 560 ==
LOC: ANHOBOP 12:07 → ANHOBPP 12:14 → ANHLDR 14:18 → ANHOB2 11-01 08:48 → ANHOBPP 11-04 07:55 → ANHLDR 11-04 07:55
PROVIDERS: Advanced Practice Midwife; Admitting Provider Obstetrics & Gynecology; Visit Provider Obstetrics & Gynecology
DX: O41.03X0 Oligohydramnios, third trimester, not applicable or unspecified (principal); O13.4 Gestational [pregnancy-induced] hypertension without significant proteinuria, complicating childbirth; O70.0 First degree perineal laceration during delivery; O69.81X0 Labor and delivery complicated by cord around neck, without compression, not applicable or unspecified; O32.6XX0 Maternal care for compound presentation, not applicable or unspecified; Z3A.38 38 weeks gestation of pregnancy; Z37.0 Single live birth
CPT/HCPCS: 36415; 76819; 80053; 81001; 82570; 84156; 84550; 85014; 85018; 85025; 86593; 86703; 86850; 86900; 86901; 88307; 90715; 99199; A9270; G0432; J2590; J2795; J3010; J7120

== ENCOUNTER 2025-01-29 17:15 | Emergency (ER) | payer OTHER, SELFPAY ==
[2025-01-29 17:23] VITALS: BP 122/55; PULSE 76; RESP 16; TEMP 36.9; O2SAT 100
--- NOTE | 2025-01-29 18:06 | ED.EYEPROB ---
HPI - Eye Problem General Chief complaint: Eye Problems Stated complaint: Left Eye Irritation Time Seen by Provider: 01/29/25 17:30 Source: patient and RN notes reviewed Mode of arrival: ambulatory Limitations: no limitations History of Present Illness HPI Narrative: 24-year-old female presents to the [facility] complaining of left eye irritation of started today. Patient said she you she got sulfas in her eye when she went to have lunch with her boyfriend her work sits in the patient reports irritation to her left eye and states that feels like there is something in her eye. She reports her eye is red has watery discharge. Patient denies any purulence drainage, eye pain, nausea, vomiting, headaches, or any other symptoms. Patient reports she is approximately 6 weeks . Related Data Home Medications ?Medication ?Instructions ?Recorded ?Confirmed ?Last Taken ?Type vit no.95-ferrous 1 tablet PO DAILY 10/10/24 10/29/24 10/29/24 History fumarate 28 mg-folic acid 800 mcg tablet () calcium 200 mg (as 2 tablet PO DAILY 10/29/24 10/29/24 10/29/24 History citrate)-vitamin D3 6.25 mcg (250 unit) tablet ferrous sulfate 325 mg (65 mg 325 mg PO HS 10/29/24 10/29/24 10/28/24 History iron) tablet,delayed release vitamin A 2,400 mcg capsule 2,400 mcg PO DAILY 10/29/24 10/29/24 10/29/24 History Allergies Allergy/AdvReac Type Severity Reaction Status Date / Time No Known Allergies Allergy Verified 10/29/24 10:04 Review of Systems Review of Systems: CONSTITUTIONAL: Denies fever, chills, or sweats. EYES: Denies visual changes, or eye pain.. Positive for foreign body sensation, eye redness, eye drainage. ENT: Denies rhinorrhea, congestion, sore throat, or otalgia. CARDIOVASCULAR: Denies chest pain, palpitations, or edema. RESPIRATORY: Denies cough or dyspnea. GASTROINTESTINAL: Denies abdominal pain, nausea, vomiting, or diarrhea. GENITOURINARY: Denies dysuria or hematuria. SKIN: Denies rash or itching. MUSCULOSKELETAL: Denies back pain, joint pain, or myalgia. NEUROLOGIC: Denies headache, numbness, or weakness. PSYCHIATRIC: Denies anxiety or depression. All other systems reviewed are negative, except as documented in HPI. [facility] Past Medical History Medical History Obesity PIH ( induced hypertension) and not yet delivered No significant medical problems Surgical History Surgical History No pertinent past surgical history Family History Family History Other No pertinent family history Social History Social History Smoking status: Never smoker Second hand tobacco smoke exposure: No Substance use: never Do You Feel Safe in your Home?: Yes Lack of Transportation: No Lack of Food: Never True Current Housing: I Have Housing Concerned About Future Housing: No Difficulty Paying Gas/Electric Bills: No Difficulty Paying for Meds: No Currently Unemployed: No Education: High School Diploma/GED Difficulty w/ Childcare or Family Care: No Gender identity (if verbalized by the patient): Female Spiritual care concerns: No Comments At the time of my signature, I reviewed and agree with the nursing past medical, surgical, social, and family history. There is no relevant family history pertinent to the patient complaint. Exam Narrative: GENERAL: This is a well-nourished, well-developed adult, in no apparent distress. They are non ill-appearing, nontoxic appearing. HEAD: normocephalic, atraumatic. EYES: Sclera clear/white. Right Conjunctiva normal. Left conjunctiva injected with watery discharge. Vision is grossly intact. Extraocular movements intact. Pupils PERRLA. Wood's lamp exam with fluorescent stain of left eye: Small corneal abrasion present. No vitreous humor, no dendritic lesions. Eversion of left upper and lower eyelids showed no evidence of retained foreign body or stye formation. Right upper and lower eyelids normal. EARS: External ears normal,Hearing grossly intact. NOSE: External nose normal THROAT: Mucous membranes moist, NECK: Neck supple, CARDIOVASCULAR: Regular rate and rhythm RESPIRATORY: Respiratory rate normal, respiratory effort nonlabored, no respiratory distress SKIN: warm, Dry, intact with no suspicious lesions or rash, good texture and turgor. NEURO: awake, alert, and oriented to person, place and time. There were no obvious focal neurologic abnormalities. EXTREMITIES: No joint tenderness, effusion, or edema noted. BACK: Nontender without deformity. No CVA tenderness. Course Course Emergency Course: Portions of this record may have been created with voice recognition software Level of Care: Express Care Visit Vital Signs Vital signs: Vital Signs Temperature 98.5 F 01/29/25 17:23 Pulse Rate 76 01/29/25 17:23 Respiratory Rate 16 01/29/25 17:23 Blood Pressure 122/55 L 01/29/25 17:23 Pulse Oximetry 100 01/29/25 17:23 Oxygen Delivery Room Air 01/29/25 17:23 Temperature 98.5 F 01/29/25 17:23 Pulse Rate 76 01/29/25 17:23 Respiratory Rate 16 01/29/25 17:23 Blood Pressure 122/55 L 01/29/25 17:23 Pulse Oximetry 100 01/29/25 17:23 Oxygen Delivery Room Air 01/29/25 17:23 Reviewed MDM - Eye Problem MDM Narrative Medical decision making narrative: Patient is corneal abrasion left eye. Visual acuity normal. Grossly intact. No evidence of retained foreign body. Prescribe a course of erythromycin ointment for infection prevention. Discussed physical exam findings. Advised supportive measures and signs/symptoms to go to the ER. Pt is appropriate for outpt treatment and f/u. Differential Diagnosis Differential diagnosis: Likely corneal abrasion, conjunctivitis and acute iritis Critical Care Time Critical Care Time Critical Care Time: No Discharge Plan Discharge Clinical Impression: Corneal abrasion Qualifiers: Encounter type: initial encounter Laterality: left Qualified Code(s): S05.02XA - Injury of conjunctiva and corneal abrasion without foreign body, left eye, initial encounter Patient Disposition: Home Condition: Stable Instructions: Antibiotic Form, Corneal Abrasion (ED) Additional Instructions: Corneal abrasions will heal in 1-2 days. Use erythromycin ointment as directed. You can wear sunglasses or stay in low light to avoid light sensitivity. Do not touch or rub your eye. Use over the counter lubricating eye drops as needed for irritation Do not wear contact lenses until issue is resolved You may take Tylenol follow instructions on the bottle for dosing. Follow-up with PCP or making machine catcher if condition is not improving in 2-3days. Go to the ER for any vision changes, nausea, vomiting, eye pain, or any worsening symptoms or concerns. [facility] [phone] [facility] [phone] [facility] [phone] [facility] [phone] Patient Language: Maltese Prescriptions: New erythromycin 5 mg/gram (0.5 %) ointment 0.5 inch LEFT EYE QID 5 Days Qty: 3.5 0RF No Action ferrous sulfate 325 mg (65 mg iron) tablet,delayed release (DR/EC) 325 mg PO HS vitamin A 2,400 mcg capsule 2,400 mcg PO DAILY calcium citrate-vitamin D3 200 mg-6.25 mcg (250 unit) tablet 2 tablet PO DAILY docusate sodium 100 mg Capsule 100 mg PO BID PRN (Reason: Constipation) Qty: 60 0RF ibuprofen 600 mg Tablet 600 mg PO Q6H PRN (Reason: Cramping) Qty: 30 0RF PNV no.95-ferrous fumarate-FA [] 28 mg iron- 800 mcg tablet 1 tablet PO DAILY Follow-up/Referrals: PHYSICIAN,AUTOMATIC PATTERN EDGER [Primary Care Provider, Internal Medicine] Time of Disposition: 18:06
== END 2025-01-29 18:23 | disposition home or self-care (01) ==
DX: O9A.211 Injury, poisoning and certain other consequences of external causes complicating pregnancy, first trimester (principal); Z3A.00 Weeks of gestation of pregnancy not specified; S05.02XA Injury of conjunctiva and corneal abrasion without foreign body, left eye, initial encounter; X58.XXXA Exposure to other specified factors, initial encounter
CPT/HCPCS: 99213; A9270; G0463